=== PATIENT | male | born 1975 | race Caucasian/White ===

== ENCOUNTER 2016-08-23 13:43 | Emergency (ER) | payer MEDICAID ==
[~2016-08-23] VITALS: Ht 170.2 cm; Wt 89.0 kg
[2016-08-23 13:48] VITALS: Ht 170.2 cm; Wt 89.0 kg
[2016-08-23] MEDS ORDERED: ONDANSETRON (ODT) 4 MG TAB ODT STA (15:03)
--- NOTE | 2016-08-23 15:19 | ERD ---
ER Documentation Chief Complaint Date/Time DATE: 08/23/16 TIME: 15:13 Chief Complaint IVEY X 6 DAYS HPI Patient is a 40-year-old male with a past medical history of bipolar who presents to the ED with multiple complaints. Patient states that for the last 3 weeks he has had headache, gradual onset and the last week he has had blurry vision, neck pain and difficulty hearing. States that he feels a lump behind his head. Denies fever or chills. Denies vomiting or diarrhea or abdominal pain. Denies chest pain, cough, shortness of breath. Denies leg pain or leg swelling. States that he went to his primary care provider last week and was given Flexeril and ibuprofen which has helped with his symptoms. He also states that he has difficulty chewing however he does not have difficulty breathing or swallowing. Denies rashes or seizures. Patient also smokes marijuana daily ROS All systems reviewed and are negative except as per history of present illness. Medications Home Meds Active Scripts Hydrocodone/Acetaminophen ([place] 5-325 Tablet) 1 Each Tablet, 1 TAB PO Q6H Y for PAIN, #5 TAB Prov:ABBY SHELL PA-C 08/23/16 Allergies Allergies: Coded Allergies: haloperidol (Verified Allergy, Severe, ANAPHALACTIC, 08/26/16) Fish Containing Products (Verified Allergy, Unknown, HIVES, 08/26/16) Penicillins (Verified Allergy, Unknown, 08/25/16) Sulfa (Sulfonamide Antibiotics) (Verified Allergy, Unknown, 08/25/16) shellfish derived (Verified Allergy, Unknown, HIVES, 08/26/16) PMhx/Soc History of Surgery: No Anesthesia Reaction: No Hx Neurological Disorder: No Hx Respiratory Disorders: No Hx Cardiac Disorders: No Hx Psychiatric Problems: Yes (BIPOLAR) Hx Miscellaneous Medical Probl: No Hx Alcohol Use: Yes (SOCIALLY) Hx Substance Use: Yes (DAILY) Hx Tobacco Use: Yes Smoking Status: Former smoker FmHx Family History: No coronary disease, No diabetes, No other Physical Exam Vitals Physical Exam GENERAL: Well-developed, well-nourished male. Appears in no acute distress. HEAD: Normocephalic, atraumatic. EYES: Pupils are equally reactive bilaterally. EOMs grossly intact. No conjunctival erythema. ENT: Moist mucous membranes. No uvula deviation. No kissing tonsils. No exudates. 10 cm mass behind neck, soft, mobile with no signs of infection. NECK: Supple. No lymphadenopathy or thyromegaly. No meningismus. negative kernig. negative brudinski. LUNG: Clear to auscultation bilaterally. No rhonchi, wheezing, rales or coarse breath sounds. HEART: Regular rate and rhythm. No murmurs, rubs or gallops. Extremities: Equal pulses bilaterally. No peripheral clubbing, cyanosis or edema. No unilateral leg swelling. NEUROLOGIC: Alert and oriented. Moving all four extremities. 5/5 strength in all extremities. Normal speech. Steady gait. SKIN: Normal color. Warm and dry. No rashes or lesions. Capillary refill < 2 seconds Results 24 hrs Current Medications Medications (Trade) Dose Ordered Sig/Carmelita Route PRN Reason Start Time Stop Time Status Last Admin Dose Admin Acetaminophen/ Hydrocodone Bitart ([place] (5/325)) 1 tab ONCE ONCE PO 08/23/16 15:30 08/23/16 15:31 DC 08/23/16 15:14 Ondansetron HCl (Zofran Odt) 4 mg ONCE STAT ODT 08/23/16 15:03 08/23/16 15:05 DC 08/23/16 15:13 Acetaminophen/ Hydrocodone Bitart ([place] (5/325)) 1 tab ONCE ONCE PO 08/23/16 18:00 08/23/16 18:01 DC Procedures/MDM ER COURSE: I kept the patient and/or family informed of laboratory and diagnostic imaging results throughout the emergency room course. IMAGING STUDIES [place] [id number] Radiology Main Line: [phone] DIAGNOSTIC IMAGING REPORT Patient: TUSHAR RUIZ : 1975 Age: 40 Sex: M MR #: [id number] DOS: 08/23/16 1503 Ordering MD: ABBY SHELL PA-C Location: [facility] Room/Bed: PROCEDURE: CT Brain without contrast. CLINICAL INDICATION: Headache. Palpable lesion posteriorly. TECHNIQUE: A CT of the brain without contrast was performed utilizing axial sections from the skull base through the vertex. The patient was scanned without intravenous contrast enhancement. Sagittal and coronal reformatted images were obtained using the data from the axial images. Total exam DLP is 720.23 mGy-cm. CTDIvol is 45.01 mGy. One or more of the following dose reduction techniques were used: Automated exposure control, adjustment of the mA and/or kV according to patient size, use of iterative reconstruction technique. COMPARISON: None available FINDINGS: There is normal alfaro-white matter differentiation. The ventricles and cisterns are normal. There is no intracranial hemorrhage or space-occupying lesion. There is no skull fracture or lytic lesion. IMPRESSION: 1. Normal noncontrast CT scan of the brain. RPTAT: QQ .Allan Dash MD, MD Date Time Electronically viewed and signed by .Allan Dash MD, MD on 08/23/2016 17:59 .R/ CC: ABBY SHELL [place] MEDICAL DECISION MAKING: This is a 40-year-old male who presents with headache 3 weeks. Vital signs were reviewed. Patient is afebrile. Patient is not hypoxic. Patient is nontoxic or ill-appearing. I consulted my supervising physician Dr. hummel who agrees with my medical decision making. CT scan was ordered which was unremarkable. Patient has headache of unknown etiology. 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 Patient is neurovascularly intact in the examination room. Patient was given [place] here in the ED. Tolerated well and stated improvement in his symptoms. Low suspicion for intracranial hemorrhage, meningitis, intracranial mass, concussion, temporal arteritis, stroke, elevated intracranial pressure, seizure. DISCHARGE: At this time, patient is stable for discharge and outpatient management with no new complaints during the ER course. Patient was sent home with [place] and a copy of imaging report and to follow-up with family care provider.. Patient will be discharged home with instructions to recheck for new or worsening symptoms such as fever, nausea, weakness, LOC and to follow up with primary care in the next 1-2 days. Patient was advised to return to the ER for any new or worsening symptoms. Plan was discussed and patient and/or family understands and agrees. Home instructions were given. Departure Diagnosis: Primary Impression: Headache Headache type: unspecified Headache chronicity pattern: acute headache Intractability: not intractable Qualified Code: R51 - Acute nonintractable headache, unspecified headache type Condition: Stable ABBY SHELL PA-C Aug 23, 2016 15:19
[2016-08-23] MEDS ORDERED: HYDROCODONE/APAP (5/325) TAB PO ONE ×2 (15:30→18:00)
--- NOTE | 2016-08-23 17:59 | RADRPT ---
PROCEDURE: CT Brain without contrast. CLINICAL INDICATION: Headache. Palpable lesion posteriorly. TECHNIQUE: A CT of the brain without contrast was performed utilizing axial sections from the skul l base through the vertex. The patient was scanned without intravenous contrast enhancement. Sagitta l and coronal reformatted images were obtained using the data from the axial images. Total exam DLP is 720.23 mGy-cm. CTDIvol is 45.01 mGy. One or more of the following dose reduction techniques we re used: Automated exposure control, adjustment of the mA and/or kV according to patient size, use o f iterative reconstruction technique. COMPARISON: None available FINDINGS: There is normal alfaro-white matter differentiation. The ventricles and cisterns are normal. There is no intracranial hemorrhage or space-occupying lesion. There is no skull fracture or lytic lesion. IMPRESSION: 1. Normal noncontrast CT scan of the brain. RPTAT: QQ .Allan Dash MD, MD Date Time Electronically viewed and signed by .Allan Dash MD, on 08/23/2016 17:59 .R/
[2016-08-23] MEDS ORDERED: HYDR-906 PO (18:14)
== END 2016-08-23 18:37 | disposition home or self-care (01) ==
LOC: FTE 13:43
DX: R51 Headache (principal); Z87.891 Personal history of nicotine dependence
CPT/HCPCS: 70450; Z7502; Z7610

== ENCOUNTER 2016-08-25 21:24 | Inpatient (IN) | payer MEDICAID ==
[~2016-08-25] VITALS: Ht 170.2 cm; Wt 76.0 kg
[~2016-08-25 21:24] MED LIST: HYDR-906 PO
[2016-08-25 21:29] VITALS: Ht 170.2 cm; Wt 76.0 kg
[2016-08-25] MEDS ORDERED: SOD CHLORIDE 0.9% 1,000 ML IV STA (22:23)
[2016-08-25] MEDS ORDERED: morphine 2 MG INJ IV STA (22:23)
[2016-08-25] MEDS ORDERED: ONDANSETRON 4 MG INJ IV STA (22:59)
[2016-08-25] MEDS ORDERED: CLINDAMYCIN 900 MG/D5W (PMX) 50 ML IVPB SCH (23:00)
[2016-08-25 23:12] LABS: ADD SCAN DIFF NO
[2016-08-25 23:18] LABS: BASOPHILS % 0.2 % (0.0-2.0); HEMATOCRIT 43.9 % (42.0-52.0); LYMPHOCYTES # 0.7 10^3/ul (0.8-2.9); LYMPHOCYTES % 3.3 % (15.0-51.0); MEAN CORPUSCULAR HEMOGLOBIN 29.6 pg (29.0-33.0); MEAN CORPUSCULAR HGB CONC 34.2 g/dl (32.0-37.0); MEAN CORPUSCULAR VOLUME 86.6 fl (82.0-101.0); MEAN PLATELET VOLUME 10.6 fl (7.4-10.4); MONOCYTE # 1.3 10^3/ul (0.3-0.9); MONOCYTES % 6.4 % (0.0-11.0); NEUTROPHIL # 18.5 10^3/ul (1.6-7.5); NEUTROPHILS % 89.1 % (39.0-77.0); PLATELET COUNT 297 10^3/UL (140-415); RED BLOOD COUNT 5.07 10^6/ul (4.70-6.10); RED CELL DISTRIBUTION WIDTH 14.2 % (11.5-14.5); WHITE BLOOD COUNT 20.8 10^3/ul (4.8-10.8)
[2016-08-25 23:34] LABS: CALCIUM 9.6 mg/dl (8.4-10.2); CREATININE 0.98 mg/dl (0.61-1.24); POTASSIUM 3.8 mmol/L (3.5-5.1)
[2016-08-25] MEDS ORDERED: SOD CHLORIDE 0.9% 100 ML ONE (23:57)
[2016-08-25] MEDS ORDERED: IOHEXOL 300MG/ML 150 ML BTL ONE (23:57)
--- NOTE | 2016-08-26 01:05 | RADRPT ---
PROCEDURE: CT soft tissue neck with contrast CLINICAL INDICATION: Left orbital swelling radiating to forehead, face and neck TECHNIQUE: A CT of the neck was performed utilizing axial sections from the from the thoracic inle t through the skull base with contrast. Coronal and sagittal images were also reformatted. 90 cc of Omnipaque-300 intravenous contrast was administered. The exam CTDI vol = 8.59 mGy and DLP = 254.66 m Gy-cm. COMPARISON: None available FINDINGS: Visualized intracranial structures and skull base: Mild mucosal thickening of the sphenoid sinuses i s present bilaterally. The remaining paranasal sinuses and mastoid air cells are clear the included orbits demonstrate left preseptal soft tissue swelling and edema along the left nasolacrimal ridge. There is no evidence of retrobulbar are inflammation or abscess. Mild to moderate bilateral symme tric proptosis is noted Nasopharynx, oropharynx and tongue base: The pharyngeal tonsils are within limits of normal for size . The parapharyngeal fat planes are symmetric and unremarkable. No nasopharyngeal mass is present. The tongue base is unremarkable. Dental amalgam artifact limits fine evaluation of these regions. Parotid and paper bag machine operator spaces: The glands are normal in size and homogeneous in attenuation without mass or inflammation. The muscles of mastication and temporomandibular joints are normal bilaterall y. Carotid spaces: The lymph nodes are normal in size bilaterally. No mass lesion or inflammation is de monstrated. A linear hypodense filling defect within the proximal right internal jugular vein from the jugular foramen to the level of the C2 vertebral body cannot exclude thrombus. The left interna l jugular vein is smaller than the right. The carotid vasculature is unremarkable. Submandibular and submental spaces: The glands and lymph nodes are normal. There is no evidence of calcification. The sublingual space is unremarkable. Posterior triangles: Reactive type lymph nodes in the right greater than left spinal accessory chain are present without meeting the criteria for adenopathy. Larynx and infraglottic airway: The epiglottis, aryepiglottic folds, vocal cords and piriform sinus es are unremarkable. No intrinsic tracheal abnormality is demonstrated. Visceral space: The thyroid gland is normal in size without evidence of nodules. The cervical esoph robb is unremarkable. Supraclavicular fossae: No evidence of adenopathy or mass lesion. Visualized thorax: No evidence of pulmonary infiltrates or superior mediastinal abnormality. Cervical spine: No evidence of fracture, lytic or blastic lesion. The reversal of the normal cervic al lordosis may be from muscle spasm. RPTAT:HJJR IMPRESSION: 1. Left preseptal and periorbital soft tissue swelling extending along the left nasolacrimal ridge is consistent with cellulitis without evidence of abscess and no extension into the intraconal space . Clinical follow-up is recommended. 2. Linear hypodense filling defect within the proximal right internal jugular vein from the skull b ase to the level of the C2 vertebral body cannot exclude thrombus versus atypical flow related artif act. A followup right upper extremity venous ultrasound with attention to this area is recommended. Results are discussed by telephone with Dr. Rivera at 01:04 3. Incidental chronic-appearing sphenoid sinus disease. Physician Swati Date Time Electronically viewed and signed by Physician Swati on 08/26/2016 01:05 /
[2016-08-26] MEDS ORDERED: DICLOFENAC SODIUM 37.5 MG/ML VIAL IV STA (01:34)
[2016-08-26] MEDS ORDERED: ONDANSETRON 4 MG INJ IV STA (01:34)
--- NOTE | 2016-08-26 02:51 | RADRPT ---
PROCEDURE: ULTRASOUND RIGHT UPPER EXTREMITY VENOUS CLINICAL INDICATION: 40-year-old male with neck pain and abnormal CT scan questioning and a right internal jugular thrombus. TECHNIQUE: Multiple sonographic images of the right upper extremity deep venous system was obtaine d utilizing grayscale, color-flow, compressive sonography and doppler imaging with augmentation. Th e images were reviewed on a PACS workstation. COMPARISON: None. FINDINGS: There is normal compressibility and flow within the right internal jugular, subclavian, axillary, ce phalic, brachial, basilic, radial and ulnar veins. IMPRESSION: No sonographic evidence for right upper extremity deep venous thrombosis. .Yordan Mcintosh MD, MD Date Time Electronically viewed and signed by .Yordan Mcintosh MD, MD on 08/26/2016 02:51 .Elizabeth/
[2016-08-26] MEDS ORDERED: ONDANSETRON 4 MG INJ IV PRN (03:30)
[2016-08-26] MEDS ORDERED: ACETAMINOPHEN 325 MG TAB PO PRN (03:30)
[2016-08-26 04:00] VITALS: BP 127/81; PULSE 85; RESP 17
--- NOTE | 2016-08-26 05:26 | ERA ---
ER Documentation Chief Complaint Date/Time DATE: 08/26/16 TIME: 05:21 Chief Complaint left eye swelling since this morning HPI 40-year-old male presents with pain and redness to the left side of his face back of his neck going around to his eye. He was seen in the ER 2 days ago for a bump on the back of his head received a head CT and was discharged. States that since then the redness in the back has spread. He has no dental pain. He does have ear pain. He does feel increasingly generalized weak and tired. He has no visual symptoms but does feel the pain surrounding his eye he has no pain on eye movement ROS All systems reviewed and are negative except as per history of present illness. Medications Home Meds Active Scripts Hydrocodone/Acetaminophen ([place] 5-325 Tablet) 1 Each Tablet, 1 TAB PO Q6H Y for PAIN, #5 TAB Prov:ABBY SHELL PA-C 08/23/16 Allergies Allergies: Coded Allergies: haloperidol (Verified Allergy, Severe, ANAPHALACTIC, 08/26/16) Fish Containing Products (Verified Allergy, Unknown, HIVES, 08/26/16) Penicillins (Verified Allergy, Unknown, 08/25/16) Sulfa (Sulfonamide Antibiotics) (Verified Allergy, Unknown, 08/25/16) shellfish derived (Verified Allergy, Unknown, HIVES, 08/26/16) PMhx/Soc History of Surgery: No Anesthesia Reaction: No Hx Neurological Disorder: No Hx Respiratory Disorders: No Hx Cardiac Disorders: No Hx Psychiatric Problems: Yes (BIPOLAR) Hx Miscellaneous Medical Probl: No Hx Alcohol Use: Yes (SOCIALLY) Hx Substance Use: No Hx Tobacco Use: Yes Smoking Status: Current every day smoker Physical Exam Vitals Vital Signs Date Time Temp Pulse Resp B/P Pulse Ox O2 Delivery O2 Flow Rate FiO2 08/25/16 21:29 99.4 90 20 133/91 97 Physical Exam Const: [] Head: Atraumatic Eyes: Normal Conjunctiva ENT: Normal External Ears, Nose and Mouth. Neck: Full range of motion..~ No meningismus. Resp: Clear to auscultation bilaterally Cardio: Regular rate and rhythm, no murmurs Abd: Soft, non tender, non distended. Normal bowel sounds Skin: No petechiae or rashes Back: No midline or flank tenderness Ext: No cyanosis, or edema Neur: Awake and alert Psych: Normal Mood and Affect Result Diagram: 08/25/16225408/25/162254 Results 24 hrs Laboratory Tests Test 08/25/16 22:55 White Blood Count 20.810^3/ul Red Blood Count 5.0710^6/ul Hemoglobin 15.0g/dl Hematocrit 43.9% Mean Corpuscular Volume 86.6fl Mean Corpuscular Hemoglobin 29.6pg Mean Corpuscular Hemoglobin Concent 34.2g/dl Red Cell Distribution Width 14.2% Platelet Count 43693^3/UL Mean Platelet Volume 10.6fl Neutrophils % 89.1% Lymphocytes % 3.3% Monocytes % 6.4% Eosinophils % 0.0% Basophils % 0.2% Nucleated Red Blood Cells % 0.0/100WBC Neutrophils # 18.510^3/ul Lymphocytes # 0.710^3/ul Monocytes # 1.310^3/ul Eosinophils # 0.010^3/ul Basophils # 0.010^3/ul Nucleated Red Blood Cells # 0.010^3/ul Sodium Level 129mmol/L Potassium Level 3.8mmol/L Chloride Level 87mmol/L Carbon Dioxide Level 28mmol/L Anion Gap 18 Blood Urea Nitrogen 25mg/dl Creatinine 0.98mg/dl Glucose Level 138mg/dl Calcium Level 9.6mg/dl Current Medications Medications (Trade) Dose Ordered Sig/Carmelita Route PRN Reason Start Time Stop Time Status Last Admin Dose Admin Sodium Chloride (NS) 1,000 ml @ 1,000 mls/hr Q1H STAT IV 08/25/16 22:23 08/25/16 23:22 DC 08/25/16 22:47 Morphine Sulfate 2 mg 2 mg ONCE STAT IV 08/25/16 22:23 08/25/16 22:28 DC 08/25/16 22:47 Clindamycin HCl/ Dextrose (Cleocin 900 Mg/ D5W (Pmx)) 50 ml @ 50 mls/hr ONCE IVPB 08/25/16 23:00 08/25/16 23:59 DC 08/25/16 23:07 Ondansetron HCl (Zofran Inj) 4 mg ONCE STAT IV 08/25/16 22:59 08/25/16 23:00 DC 08/25/16 23:04 IV Flush 10 ml 10 ml STK-MED ONCE .ROUTE 08/25/16 23:57 08/25/16 23:58 DC 08/26/16 00:12 Sodium Chloride (NS) 100 ml @ ud STK-MED ONCE .ROUTE 08/25/16 23:57 08/25/16 23:58 DC 08/26/16 00:12 Iohexol (Omnipaque 300mg/ ml) 150 ml STK-MED ONCE .ROUTE 08/25/16 23:57 08/25/16 23:58 DC 08/26/16 00:12 Ondansetron HCl (Zofran Inj) 4 mg ONCE STAT IV 08/26/16 01:34 08/26/16 01:36 DC 08/26/16 02:01 Diclofenac Sodium (Dyloject) 37.5 mg ONCE STAT IV 08/26/16 01:34 08/26/16 01:36 DC 08/26/16 02:01 Procedures/MDM Expanding facial cellulitis with new periorbital cellulitis. No signs of sepsis and vital signs. Patient does have leukocytosis and hyponatremia. Believe he needs to be admitted for IV antibiotics to prevent progression to orbital cellulitis. Currently has no pain on extraocular muscle movement. Does have a generalized weakness with hyponatremia and hyperchloremia. Hydrated him with normal saline and gave him clindamycin is allergic to penicillins. Also gave him morphine and Toradol for the pain. Radiologist initially called and stated they might see of venous lesion in the right IJ. They recommended follow-up with right upper extremity ultrasound which does not show any venous lesions. Patient is being admitted to the medical surgical floor for IV antibiotic treatment further management likely infectious disease consult. Dr. Antoine is admitting CT face and neck interpretation: Periorbital cellulitis without any orbital cellulitis. No foreign bodies Right upper extremity ultrasound: No lesions or DVT. Departure Diagnosis: Primary Impression: Periorbital cellulitis of left eye Additional Impressions: Facial cellulitis Hyponatremia Leukocytosis Condition: Stable CLAUDIA DAS DO Aug 26, 2016 05:25
[2016-08-26] MEDS ORDERED: VANCOMYCIN IV PER PHARMACY XX SCH (07:30)
[2016-08-26] MEDS ORDERED: PIPER-TAZO 3.375 GM IV (PMX) 100 ML IVPB SCH (07:30)
[2016-08-26] MEDS ORDERED: DOCUSATE SODIUM 100 MG CAP PO PRN (07:30)
[2016-08-26] MEDS ORDERED: NACL 0.9% 3 ML SYG IV SCH (07:30)
--- NOTE | 2016-08-26 07:58 | HP ---
DATE OF ADMISSION: 08/26/2016 CHIEF COMPLAINT: Left eye pain. HISTORY OF PRESENT ILLNESS: The patient is a 40-year-old male with a history of bipolar disorder. The patient states that he has had a tension headache for the past several months. He then woke up yesterday morning with left eye swelling. This has never happened to the patient in the past. The patient was seen in the ED 2 days prior for a bump on his back of his head. He received a head CT a nd was discharged. The patient reports having some ear pain in both sides. He does feel increased weakness and fatigue. He does state that his dizziness is somewhat diminished at this time because of the left eye swelling. He does state that he has some pain surrounding the eye but has no pain w ith eye movement. PAST MEDICAL HISTORY: Bipolar disorder, tension headache for the past 2 months. PAST SURGICAL HISTORY: Denies. HOME MEDICATIONS: [place]. ALLERGIES: ALLOPURINOL, FISH CONTAINING PRODUCTS, PENICILLIN, SULFA, SHELLFISH. FAMILY HISTORY: Noncontributory. SOCIAL HISTORY: Denies any alcohol abuse, substance abuse. He is a smoker. REVIEW OF SYSTEMS: A 12-point review of systems negative except for that discussed in HPI. PHYSICAL EXAMINATION: VITAL SIGNS: Temperature is 98.1, pulse 85, respiratory rate 17, BP is 127/81, saturation 95% on ro om air. GENERAL: Mild distress, alert and oriented. HEENT: Normocephalic, atraumatic. Pupils equal, round, reactive to light. NECK: Left eye swelling noted. No erythema is noted around the eye. CHEST: Clear to auscultation. CARDIOVASCULAR: Regular rate and rhythm. ABDOMEN: Nondistended, nontender, soft. EXTREMITIES: No clubbing, cyanosis, or edema. LABORATORY TESTS: White count 20.8, hemoglobin is 15.0, platelets are 297. Chemistry within normal limits except for sodium 129, potassium is 2.8, chloride 87, BUN is 25. DIAGNOSTICS: Soft tissue neck CT shows left preseptal and periorbital soft tissue swelling extendin g along the left nasolacrimal ridge consistent with cellulitis without evidence of abscess and no ex tension into the intraconal space, a linear hyperdense filling defect within the proximal right inte rnal jugular vein from the skull base to the level of the C2 vertebral body, cannot exclude thrombos is versus atypical flow related artifact. A followup right upper extremity venous ultrasound with a ttention to this area is recommended. Ultrasound of the right upper extremity venous shows no evide nce of right upper extremity deep venous thrombosis. ASSESSMENT AND PLAN: 1. Sepsis secondary to left periorbital cellulitis, treated with IV antibiotics at this time. The patient has no pain with movement of his eyes and no urgent need for ophthalmology. We will treat w ith IV antibiotics. If the patient's condition does not improve, ophthalmology consultation should be considered. Treated with broad spectrum antibiotics at this time. 2. Bilateral ear pain, unlikely to be otitis media as the pain is bilateral, but we will treat with broad spectrum antibiotics. 3. History of bipolar disorder. The patient has no reported psychiatric medications. 4. History of tension headache with pain control. 5. Hyponatremia. We will treat with normal saline. 6. Prophylaxis with ambulation. Dictated By: TRINH CORREA MD BS/JACK Conf#: [id number] DID#: [id number]
[2016-08-26 08:17] VITALS: BP 135/78; RESP 16
[2016-08-26 08:25] VITALS: BP 143/80; RESP 18
[2016-08-26] MEDS: ONDANSETRON 4 MG INJ IV PRN ×3 (08:26→22:57)
[2016-08-26] MEDS: morphine 2 MG INJ IV PRN ×4 (08:26→22:57)
[2016-08-26] MEDS ORDERED: VANCOMYCIN 1.5 GM in SOD CHLORIDE 0.9% 250 ML IVPB SCH (09:00)
[2016-08-26] MEDS: HYDROCODONE/APAP (5/325) TAB PO PRN ×3 (09:14→20:52)
[2016-08-26] MEDS: SOD CHLORIDE 0.9% 1,000 ML IV SCH ×2 (09:18→15:17)
[2016-08-26] MEDS: ACETAMINOPHEN 325 MG TAB PO PRN (14:32)
[2016-08-26] MEDS: MEROPENEM 1 GM/100 ML (PMX) 100 ML IVPB SCH ×2 (14:50→22:50)
[2016-08-26] MEDS: METHYLPREDNISOLONE 125 MG INJ IV SCH ×2 (17:05→23:36)
[2016-08-26] MEDS: VANCOMYCIN 1 GM in NS 250 ML IVPB SCH (18:24)
[2016-08-26 19:39] VITALS: BP 124/74; RESP 18
[2016-08-26] MEDS: CIPROFLOXACIN 0.3% 2.5 ML OPH BOTH EYES SCH (20:47)
[2016-08-27] MEDS: VANCOMYCIN 1 GM in NS 250 ML IVPB SCH ×3 (02:26→17:42)
[2016-08-27 05:22] LABS: ADD SCAN DIFF NO
[2016-08-27 05:31] LABS: BASOPHILS % 0.1 % (0.0-2.0); HEMATOCRIT 39.2 % (42.0-52.0); LYMPHOCYTES % 5.4 % (15.0-51.0); MEAN CORPUSCULAR HEMOGLOBIN 29.2 pg (29.0-33.0); MEAN CORPUSCULAR HGB CONC 33.2 g/dl (32.0-37.0); MEAN CORPUSCULAR VOLUME 88.1 fl (82.0-101.0); MEAN PLATELET VOLUME 11.6 fl (7.4-10.4); MONOCYTE # 0.5 10^3/ul (0.3-0.9); MONOCYTES % 2.9 % (0.0-11.0); NEUTROPHIL # 16.8 10^3/ul (1.6-7.5); PLATELET COUNT 257 10^3/UL (140-415); RED BLOOD COUNT 4.45 10^6/ul (4.70-6.10); WHITE BLOOD COUNT 18.6 10^3/ul (4.8-10.8)
[2016-08-27 05:34] LABS: NEUTROPHILS % 90.2 % (39.0-77.0)
[2016-08-27] MEDS: HYDROCODONE/APAP (5/325) TAB PO PRN ×4 (05:36→21:24)
[2016-08-27] MEDS: METHYLPREDNISOLONE 125 MG INJ IV SCH ×4 (05:37→23:04)
[2016-08-27] MEDS: MEROPENEM 1 GM/100 ML (PMX) 100 ML IVPB SCH ×3 (05:37→21:24)
[2016-08-27 06:02] LABS: CALCIUM 8.6 mg/dl (8.4-10.2); CHOL/HDL RATIO 8.5 RATIO; CREATININE 0.82 mg/dl (0.61-1.24); MAGNESIUM 2.6 mg/dl (1.7-2.5); PHOSPHORUS 3.2 mg/dl (2.5-4.9); POTASSIUM 5.2 mmol/L (3.5-5.1)
[2016-08-27 06:17] LABS: T3 UPTAKE 41.8 % (23.5-40.5)
[2016-08-27] MEDS: ONDANSETRON 4 MG INJ IV PRN ×2 (07:23→23:36)
[2016-08-27] MEDS: morphine 2 MG INJ IV PRN ×2 (07:23→23:36)
[2016-08-27 07:36] VITALS: BP 113/61; RESP 20
[2016-08-27] MEDS: CIPROFLOXACIN 0.3% 2.5 ML OPH BOTH EYES SCH ×2 (09:21→20:23)
[2016-08-27] MEDS: ARTIFICIAL TEARS 15 ML OPH BOTH EYES SCH ×4 (11:21→21:24)
[2016-08-27] MEDS ORDERED: NA POLYST SULFON 15 GM/60 ML BTL PO ONE (14:00)
--- NOTE | 2016-08-27 15:36 | RADRPT ---
PROCEDURE: MRI Brain without contrast. CLINICAL INDICATION: Left periorbital soft tissue swelling, TIA. TECHNIQUE: An MRI of the brain was performed utilizing the following sequences: Sagittal and axial T1 weighted, axial T2 weighted, axial diffusion weighted with ADC mapping, coronal GRE, and axial F LAIR. COMPARISON: Brain CT 08/23/2016. FINDINGS: No diffusion weighted abnormalities are seen to suggest the presence of acute ischemia or recent inf arct. No hypointense signal abnormalities are seen on the GRE images to suggest the presence of blo od degradation products. There is no evidence of intracranial hemorrhage, mass effect, or midline s hift. No extra-axial fluid collections are seen. The ventricles and sulci are age-appropriate. A few small foci of T2 and FLAIR hyperintensity are seen in the deep and subcortical white matter, n onspecific in appearance though perhaps reflective of complicated migraines, early microvascular isc hemic disease, sequela from prior traumatic or inflammatory insults. No abnormal intracranial vascular flow void is noted. The visualized paranasal sinuses demonstrate m ild scattered mucosal thickening or pronounced in the sphenoid sinuses. Mild left periorbital soft t issue swelling is noted. Partial opacification of left mastoid air cells are noted. IMPRESSION: 1. No acute intracranial hemorrhage, infarction or mass. 2. A few small foci of white matter signal abnormality, nonspecific in appearance though perhaps re flective of complicated migraines, early microvascular ischemic disease, sequela from prior traumati c or inflammatory insults. 3. Mild left periorbital soft tissue swelling. 4. Partial opacification of left mastoid air cells. RPTAT: JJ .Aline Billings MD, MD Date Time Electronically viewed and signed by .Aline Billings MD, MD on 08/27/2016 15:36 .N/
--- NOTE | 2016-08-27 17:40 | RADRPT ---
PROCEDURE: US carotid arteries. CLINICAL INDICATION: Dizziness. Transient ischemic attack. TECHNIQUE: Multiple sonographic images of the carotid arteries and vertebral arteries were obtaine d utilizing alfaro scale, duplex, and color-flow imaging. The images were reviewed on a PACS workstati on. COMPARISON: No prior studies are available for comparison. FINDINGS: Evaluation of the right carotid bifurcation region reveals mild atherosclerotic disease. Evaluation of the left carotid bifurcation region reveals mild atherosclerotic disease. There is antegrade flow within the vertebral arteries bilaterally. RIGHT CAROTID MEASUREMENTS: Common Carotid [id number] (cm/sec) Internal Carotid Artery 63 (cm/sec) External Carotid Artery 120 (cm/sec) Vertebral Artery 32 (cm/sec) Internal Carotid/Common Carotid0.8 LEFT CAROTID MEASUREMENTS: Common Carotid [id number] (cm/sec) Internal Carotid Artery 78 (cm/sec) External Carotid Artery 121 (cm/sec) Vertebral Artery 30 (cm/sec) Internal Carotid/Common Carotid1.0 Validated velocity measurements with angiographic measurements. Velocity criteria are extrapolated f rom diameter data as defined by the Society of Radiologists in Ultrasound Consensus Conference. Radi ology 2003; 229;340-346. This study does indirectly reference the measurement of the distal ICA annel meter as the denominator for stenosis measurement. IMPRESSION: 1. Less than 50% stenosis bilaterally in the internal carotid arteries. 2. Normal antegrade flow in the vertebral arteries bilaterally. RPTAT: QQ SRU Consensus Conference Criteria for the Diagnosis of Carotid Artery Stenosis* Degree of Stenosis, % ICA PSV, cm/sec Plaque Estimate, % ICA/CCA PSV Ratio Normal <125 None <2.0 <50 <125 <50 <2.0 50 69 125-230 >50 2.0-4.0 >70 but less than near occlusion >230 >50 <4.0 Near occlusion High, low, or undetectable Visible Variable Total occlusion Undetectable Visible, no detectable lumen Not applicable *Cartoid artery stenosis: alfaro-scale and Doppler US diagnosis. Society of Radiologists in Ultrasound Consensus Conference. Radiology 2003; 229: 340-346 .Allan Dash MD, Date Time Electronically viewed and signed by .Allan Dash MD, on 08/27/2016 17:39 .R/
[2016-08-27 18:56] VITALS: BP 136/94; RESP 20
--- NOTE | 2016-08-27 23:27 | CONS ---
DATE OF ADMISSION: 08/26/2016 DATE OF CONSULTATION: 08/27/2016 TYPE OF CONSULTATION: Infectious disease. REASON FOR CONSULTATION: Antibiotic management. HISTORY OF PRESENT ILLNESS: Ellie Pagan is a 40-year-old male with a history of bipolar disorde r who comes in with left thigh pain and is being seen for antibiotic management. His past problems include: 1. Bipolar disorder. 2. Tension headaches for the last 2 months. 3. ALLERGIES TO ALLOPURINOL, FISH CONTAINING PRODUCTS, PENICILLIN, SULFA, AND SHELLFISH. The patient awoke on the with left eye swelling. He was seen in the emergency room for a bump on the back of his head and a CT scan of the brain and head was negative and he was discharged. The patient reports having some ear pain in both sides and some weakness and fatigue. His dizziness is somewhat diminished at this time, but he complains of left eye swelling. On admission, his white c ount was 20.8, hemoglobin 15, hematocrit 43.9, platelet count 97. On the , white count of 18.6. BUN and creatinine is 20/0.82. Triglycerides 325. An MRI of the brain shows no acute intracrania l hemorrhage. There is diffuse small foci of white matter signal abnormality, nonspecific, could be reflective of complicated migraines, early microvascular ischemic disease, mild left periorbital so ft tissue swelling, partial opacification of left mastoid air cells. CT scan of the neck shows left preseptal and periorbital soft tissue swelling extending along the left nasal lacrimal ridge consis tent with cellulitis without evidence of abscess and no extension into the intracoronal space. Clin ical followup is recommended. There is a linear hyperdense filling defect within the proximal right internal jugular vein from the skull base to the level of C2 vertebral body. Cannot exclude thromb us versus atypical flow related to artifact. Incidental chronic appearing sphenoid sinus disease. There is no evidence of right upper extremity deep vein thrombophlebitis. PAST MEDICAL HISTORY: Operations as outlined. FAMILY HISTORY: Noncontributory. SOCIAL HISTORY: He does not drink or abuse drugs. He is a smoker. ALLERGIES: 1. ALLOPURINOL. 2. FISH CONTAINING PRODUCTS. 3. PENICILLIN. 4. SULFA. 5. SHELLFISH. MEDICATIONS: Per chart. REVIEW OF SYSTEMS: As per HPI. PHYSICAL EXAMINATION: GENERAL: The patient is a 40-year-old male who is alert, responsive, in no acute distress. VITAL SIGNS: Stable. He is afebrile. SKIN: Without generalized rash. HEENT: Within normal limits. NECK: Supple. LYMPH NODES: None palpable. CHEST: Decreased breath sounds at the bases. HEART: Without murmur or gallop. ABDOMEN: Soft, nontender without organosplenomegaly or masses. EXTREMITIES: Without cyanosis, clubbing, or edema. RECTAL/GENITAL: Exam is deferred. NEUROLOGIC: No focal neurological abnormalities. He has left eye swelling with erythema around the left eye. IMPRESSION AND PLAN: The patient has sepsis secondary to left periorbital cellulitis. He was start ed on vancomycin, also methylprednisolone, and also meropenem. We may stop the meropenem within 24 hours, continuing just on vancomycin. He also has ciprofloxacin eyedrops. I will dictate my findin gs to the hospitalist. Dictated By: MARIA INES JIMENEZ MD, JD/JACK Conf#: [id number] DID#: [id number] CC: TRINH CORREA MD;*EndCC*
[2016-08-28] MEDS: VANCOMYCIN 1 GM in NS 250 ML IVPB SCH ×2 (02:49→09:57)
[2016-08-28] MEDS: HYDROCODONE/APAP (5/325) TAB PO PRN ×5 (03:10→20:24)
[2016-08-28 05:18] LABS: ADD SCAN DIFF NO
[2016-08-28 05:31] LABS: ABNORMAL IP MESSAGE 1; HEMATOCRIT 36.9 % (42.0-52.0); HEMOGLOBIN 12.3 g/dl (14.0-18.0); MEAN CORPUSCULAR HGB CONC 33.3 g/dl (32.0-37.0); MEAN PLATELET VOLUME 11.9 fl (7.4-10.4); PLATELET COUNT 308 10^3/UL (140-415); RED BLOOD COUNT 4.24 10^6/ul (4.70-6.10); RED CELL DISTRIBUTION WIDTH 15.1 % (11.5-14.5); WHITE BLOOD COUNT 26.6 10^3/ul (4.8-10.8)
[2016-08-28 05:56] LABS: CALCIUM 8.8 mg/dl (8.4-10.2); CREATININE 0.75 mg/dl (0.61-1.24); MAGNESIUM 2.4 mg/dl (1.7-2.5); POTASSIUM 3.6 mmol/L (3.5-5.1)
[2016-08-28] MEDS: MEROPENEM 1 GM/100 ML (PMX) 100 ML IVPB SCH (06:09)
[2016-08-28] MEDS: METHYLPREDNISOLONE 125 MG INJ IV SCH ×3 (06:09→21:20)
[2016-08-28 06:16] LABS: THYROID STIMULATING HORMONE 0.775 MIU/L (0.465-4.680)
[2016-08-28 07:58] LABS: C-REACTIVE PROTEIN 8.2 mg/dl (0.0-0.9)
[2016-08-28] MEDS: CIPROFLOXACIN 0.3% 2.5 ML OPH BOTH EYES SCH ×2 (08:16→20:25)
[2016-08-28] MEDS: ARTIFICIAL TEARS 15 ML OPH BOTH EYES SCH ×4 (08:17→21:20)
[2016-08-28 08:47] VITALS: BP 133/66; RESP 20
[2016-08-28 12:22] LABS: LYMPHOCYTES # 1.6 10^3/ul (0.8-2.9); MONOCYTE # 1.1 10^3/ul (0.3-0.9); MYELOCYTES # 1.1; NEUTROPHIL # 20.5 10^3/ul (1.6-7.5)
--- NOTE | 2016-08-28 12:50 | CONS ---
Date/Time of Note Date/Time of Note DATE: 08/28/16 TIME: 12:43 Assessment/Plan Assessment/Plan Chief Complaint/Hosp Course No acute changes, alert, c/o 95% L hearing loss, no fevers, left facial swelling is better Micro: Bld cx + MRSA Abx: Vanco, Merrem Physical examination: Well developed white man, in no distress + left sided periorbital/ facial swelling Neck: supple Chest: Clear to auscultation Abdomen: Soft, + BT Ext: no edema, no cyanosis Assessment: 1. MRSA bacteremia 2 to #2 2. Left periorbital/facial cellulitis ?mastoiditis 3. Chronic sinus disease 4. Bipolar disorder Plan: Repeat bld cx, dc Merrem and add Rifampin, await for ENT eval. Once bld cx negative will order PICC to complete 2 weeks IV Vanco DW pt Problems: Consultation Date/Type/Reason Admit Date/Time Aug 26, 2016 at 03:14 Initial Consult Date Type of Consultation: ID Exam/Review of Systems Vital Signs Vitals Vital Signs Date Time Temp Pulse Resp B/P Pulse Ox O2 Delivery O2 Flow Rate FiO2 08/28/16 08:47 98.1 70 20 133/66 95 08/26/16 19:50 Nasal Cannula 1.0 Intake and Output 08/27/16 08/27/16 08/28/16 15:00 23:00 07:00 Intake Total 250 ml 2910 ml 1050 ml Balance 250 ml 2910 ml 1050 ml Results Result Diagram: 08/28/16 0415 08/28/16 0415 Results 24 hrs Laboratory Tests Test 08/28/16 04:15 White Blood Count 26.6 #H Red Blood Count 4.24 L Hemoglobin 12.3 L Hematocrit 36.9 L Mean Corpuscular Volume 87.0 Mean Corpuscular Hemoglobin 29.0 Mean Corpuscular Hemoglobin Concent 33.3 Red Cell Distribution Width 15.1 H Platelet Count 308 Mean Platelet Volume 11.9 H Neutrophils % 77.0 Band Neutrophils % 9.0 H Lymphocytes % 6.0 L Monocytes % 4.0 Myelocytes % 4.0 H Neutrophils # 20.5 H Lymphocytes # 1.6 Monocytes # 1.1 H Myelocytes # 1.1 Erythrocyte Sedimentation Rate 70 H Sodium Level 139 Potassium Level 3.6 Chloride Level 103 Carbon Dioxide Level 25 Anion Gap 15 Blood Urea Nitrogen 22 H Creatinine 0.75 Glucose Level 165 Calcium Level 8.8 Magnesium Level 2.4 C-Reactive Protein 8.2 H Thyroid Stimulating Hormone (TSH) 0.775 Medications Medications Current Medications Ondansetron HCl (Zofran Inj) 4 mg Q6H PRN IV NAUSEA AND/OR VOMITING Last administered on 08/27/16 23:36; Admin Dose 4 MG; Start 08/26/16 at 07:30 Acetaminophen (Tylenol Tab) 650 mg Q6H PRN PO PAIN LEVEL 1-3 OR FEVER Last administered on 08/26/16 14:32; Admin Dose 650 MG; Start 08/26/16 at 07:30 Morphine Sulfate (morphine) 2 mg Q4H PRN IV SEVERE PAIN LEVEL 7-10 Last administered on 08/27/16 23:36; Admin Dose 2 MG; Start 08/26/16 at 07:30 Docusate Sodium (Colace) 100 mg Q12 PRN PO CONSTIPATION; Start 08/26/16 at 07: 30 Zolpidem Tartrate 5 mg 5 mg QHS PRN PO SLEEP; Start 08/26/16 at 07:30 Vancomycin HCl 250 ml @ 125 mls/hr Q8H IVPB Last administered on 08/28/16 09: 57; Admin Dose 125 MLS/HR; Start 08/26/16 at 18:00 Meropenem (Merrem 1 Gm/100 ml (Pmx)) 100 ml @ 200 mls/hr Q8 IVPB Last administered on 08/28/16 06:09; Admin Dose 200 MLS/HR; Start 08/26/16 at 14:00 Ciprofloxacin HCl (Ciloxan 0.3% Oph) 2 drop BID BOTH EYES Last administered on 08/28/16 08:16; Admin Dose 2 DROP; Start 08/26/16 at 21:00 Eye Lubricant (Artificial Tears Oph) 2 drop QID BOTH EYES Last administered on 08/28/16 12:36; Admin Dose 2 DROP; Start 08/27/16 at 10:30 Acetaminophen/ Hydrocodone Bitart ([place] (5/325)) 1 tab Q4H PRN PO MODERATE PAIN LEVEL 4-6 Last administered on 08/28/16 12:36; Admin Dose 1 TAB; Start at 12:20 Methylprednisolone Sodium Succinate (Solu-Medrol) 80 mg Q8 IV Last administered on 08/28/16t 06:09; Admin Dose 80 MG; Start 08/27/16 at 14:00 LUX LUONG NP Aug 28, 2016 12:50
--- NOTE | 2016-08-28 13:23 | PN ---
Date/Time of Note Date/Time of Note DATE: 08/28/16 TIME: 13:19 Assessment/Plan VTE Prophylaxis VTE Prophylaxis Intervention: SCD's Lines/Catheters IV C[facility]ter Type (from [facility] Peripheral IV Urinary Cath still in place: No Assessment/Plan Chief Complaint/Hosp Course ASSESSMENT AND PLAN: 1. Sepsis secondary to left periorbital cellulitis, treated with IV antibiotics at this time. Positive bacteremia/MRSA The patient has no pain with movement of his eyes and no urgent need for ophthalmology. Continue IV antibiotics. If the patient's condition does not improve, ophthalmology consultation should be considered. Continue vancomycin and discontinue imipenem 2. Bilateral ear pain, unlikely to be otitis media as the pain is bilateral, ENT has been consulted 3. History of bipolar disorder. The patient has no reported psychiatric medications. 4. History of tension headache with pain control. 5. Hyponatremia. Resolved 6. Prophylaxis with ambulation. Problems: Subjective 24 Hr Interval Summary Free Text/Dictation Patient denies any headache or dizziness Denies of any chest pain Improvement in hearing in the left ear Exam/Review of Systems Vital Signs Vitals Vital Signs Date Time Temp Pulse Resp B/P Pulse Ox O2 Delivery O2 Flow Rate FiO2 08/28/16 08:47 98.1 70 20 133/66 95 08/26/16 19:50 Nasal Cannula 1.0 Intake and Output 08/27/16 08/27/16 08/28/16 15:00 23:00 07:00 Intake Total 250 ml 2910 ml 1050 ml Balance 250 ml 2910 ml 1050 ml Exam General: The patient is well-developed, Not in acute distress. HEENT: Atraumatic, normocephalic. The pupils are equal and round . Left eye orbit swelling has improved significantly Neck: Supple with full range of motion. Chest: Normal expansion of the thorax during inspiration Lungs: Clear to auscultation bilaterally Heart: Normal S1-S2, Regular rhythm and rate. Abdomen: Soft , nontender, nondistended , bowel sounds are present. Extremities: Normal to inspection, no edema no cyanosis Neurologic: Normal mental status,The patient is awake, alert and oriented . Results Result Diagram: 08/28/16 0415 08/28/16 0415 Results 24 hrs Laboratory Tests Test 08/28/16 04:15 White Blood Count 26.6 #H Red Blood Count 4.24 L Hemoglobin 12.3 L Hematocrit 36.9 L Mean Corpuscular Volume 87.0 Mean Corpuscular Hemoglobin 29.0 Mean Corpuscular Hemoglobin Concent 33.3 Red Cell Distribution Width 15.1 H Platelet Count 308 Mean Platelet Volume 11.9 H Neutrophils % 77.0 Band Neutrophils % 9.0 H Lymphocytes % 6.0 L Monocytes % 4.0 Myelocytes % 4.0 H Neutrophils # 20.5 H Lymphocytes # 1.6 Monocytes # 1.1 H Myelocytes # 1.1 Erythrocyte Sedimentation Rate 70 H Sodium Level 139 Potassium Level 3.6 Chloride Level 103 Carbon Dioxide Level 25 Anion Gap 15 Blood Urea Nitrogen 22 H Creatinine 0.75 Glucose Level 165 Calcium Level 8.8 Magnesium Level 2.4 C-Reactive Protein 8.2 H Thyroid Stimulating Hormone (TSH) 0.775 Medications Medications Current Medications Ondansetron HCl (Zofran Inj) 4 mg Q6H PRN IV NAUSEA AND/OR VOMITING Last administered on 08/27/16 23:36; Admin Dose 4 MG; Start 08/26/16 at 07:30 Acetaminophen (Tylenol Tab) 650 mg Q6H PRN PO PAIN LEVEL 1-3 OR FEVER Last administered on 08/26/16 14:32; Admin Dose 650 MG; Start 08/26/16 at 07:30 Morphine Sulfate (morphine) 2 mg Q4H PRN IV SEVERE PAIN LEVEL 7-10 Last administered on 08/27/16 23:36; Admin Dose 2 MG; Start 08/26/16 at 07:30 Docusate Sodium (Colace) 100 mg Q12 PRN PO CONSTIPATION; Start 08/26/16 at 07: 30 Zolpidem Tartrate 5 mg 5 mg QHS PRN PO SLEEP; Start 08/26/16 at 07:30 Vancomycin HCl (Vancocin) 250 ml @ 125 mls/hr Q8H IVPB Last administered on 09:57; Admin Dose 125 MLS/HR; Start 08/26/16 at 18:00 Ciprofloxacin HCl (Ciloxan 0.3% Oph) 2 drop BID BOTH EYES Last administered on 08/28/16 08:16; Admin Dose 2 DROP; Start 08/26/16 at 21:00 Eye Lubricant (Artificial Tears Oph) 2 drop QID BOTH EYES Last administered on 08/28/16 12:36; Admin Dose 2 DROP; Start 08/27/16 at 10:30 Acetaminophen/ Hydrocodone Bitart ([place] (5/325)) 1 tab Q4H PRN PO MODERATE PAIN LEVEL 4-6 Last administered on 08/28/16 12:36; Admin Dose 1 TAB; Start at 12:20 Methylprednisolone Sodium Succinate (Solu-Medrol) 80 mg Q8 IV Last administered on 08/28/16 06:09; Admin Dose 80 MG; Start 08/27/16 at 14:00 Carbamide Peroxide (Debrox Otic) 3 drop BID BOTH EARS ; Start 08/28/16 at 13:30 Rifampin (Rifampin) 600 mg DAILY PO ; Start 08/28/16 at 13:00 ANTONIETTA WESTBROOK MD Aug 28, 2016 13:23
--- NOTE | 2016-08-28 13:25 | PN ---
Date/Time of Note Date/Time of Note DATE: 08/27/16 TIME: 13:23 Assessment/Plan VTE Prophylaxis VTE Prophylaxis Intervention: SCD's Lines/Catheters IV [facility]ter Type (from [facility]): Peripheral IV Urinary Cath still in place: No Assessment/Plan Chief Complaint/Hosp Course ASSESSMENT AND PLAN: 1. Sepsis secondary to left periorbital cellulitis, treated with IV antibiotics at this time. Positive bacteremia/MRSA The patient has no pain with movement of his eyes and no urgent need for ophthalmology. Continue IV antibiotics. If the patient's condition does not improve, ophthalmology consultation should be considered. Continue vancomycin and discontinue imipenem 2. Bilateral ear pain, unlikely to be otitis media as the pain is bilateral, ENT has been consulted 3. History of bipolar disorder. The patient has no reported psychiatric medications. 4. History of tension headache with pain control. 5. Hyponatremia. Resolved 6. Prophylaxis with ambulation. Problems: Subjective 24 Hr Interval Summary Free Text/Dictation Complains of having swelling in left orbit Denies of any headache or dizziness Tolerating oral intake Denies of any chest pain or shortness of breath Exam/Review of Systems Vital Signs Vitals Vital Signs Date Time Temp Pulse Resp B/P Pulse Ox O2 Delivery O2 Flow Rate FiO2 08/28/16 08:47 98.1 70 20 133/66 95 08/26/16 19:50 Nasal Cannula 1.0 Intake and Output 08/27/16 08/27/16 08/28/16 15:00 23:00 07:00 Intake Total 250 ml 2910 ml 1050 ml Balance 250 ml 2910 ml 1050 ml Exam General: The patient is well-developed, Not in acute distress. HEENT: Atraumatic, normocephalic. The pupils are equal and round . Erythema and periorbital edema on the left eye Neck: Supple with full range of motion. Chest: Normal expansion of the thorax during inspiration Lungs: Clear to auscultation bilaterally Heart: Normal S1-S2, Regular rhythm and rate. Abdomen: Soft , nontender, nondistended , bowel sounds are present. Extremities: Normal to inspection, no edema no cyanosis Neurologic: Normal mental status,The patient is awake, alert and oriented . Results Result Diagram: 08/28/16 0415 08/28/16 0415 Results 24 hrs Laboratory Tests Test 08/28/16 04:15 White Blood Count 26.6 #H Red Blood Count 4.24 L Hemoglobin 12.3 L Hematocrit 36.9 L Mean Corpuscular Volume 87.0 Mean Corpuscular Hemoglobin 29.0 Mean Corpuscular Hemoglobin Concent 33.3 Red Cell Distribution Width 15.1 H Platelet Count 308 Mean Platelet Volume 11.9 H Neutrophils % 77.0 Band Neutrophils % 9.0 H Lymphocytes % 6.0 L Monocytes % 4.0 Myelocytes % 4.0 H Neutrophils # 20.5 H Lymphocytes # 1.6 Monocytes # 1.1 H Myelocytes # 1.1 Erythrocyte Sedimentation Rate 70 H Sodium Level 139 Potassium Level 3.6 Chloride Level 103 Carbon Dioxide Level 25 Anion Gap 15 Blood Urea Nitrogen 22 H Creatinine 0.75 Glucose Level 165 Calcium Level 8.8 Magnesium Level 2.4 C-Reactive Protein 8.2 H Thyroid Stimulating Hormone (TSH) 0.775 Medications Medications Current Medications Ondansetron HCl (Zofran Inj) 4 mg Q6H PRN IV NAUSEA AND/OR VOMITING Last administered on 08/27/16 23:36; Admin Dose 4 MG; Start 08/26/16 at 07:30 Acetaminophen (Tylenol Tab) 650 mg Q6H PRN PO PAIN LEVEL 1-3 OR FEVER Last administered on 08/26/16 14:32; Admin Dose 650 MG; Start 08/26/16 at 07:30 Morphine Sulfate (morphine) 2 mg Q4H PRN IV SEVERE PAIN LEVEL 7-10 Last administered on 08/27/16 23:36; Admin Dose 2 MG; Start 08/26/16 at 07:30 Docusate Sodium (Colace) 100 mg Q12 PRN PO CONSTIPATION; Start 08/26/16 at 07: 30 Zolpidem Tartrate 5 mg 5 mg QHS PRN PO SLEEP; Start 08/26/16 at 07:30 Vancomycin HCl (Vancocin) 250 ml @ 125 mls/hr Q8H IVPB Last administered on 09:57; Admin Dose 125 MLS/HR; Start 08/26/16 at 18:00 Ciprofloxacin HCl (Ciloxan 0.3% Oph) 2 drop BID BOTH EYES Last administered on 08/28/16 08:16; Admin Dose 2 DROP; Start 08/26/16 at 21:00 Eye Lubricant (Artificial Tears Oph) 2 drop QID BOTH EYES Last administered on 08/28/16 12:36; Admin Dose 2 DROP; Start 08/27/16 at 10:30 Acetaminophen/ Hydrocodone Bitart ([place] (5/325)) 1 tab Q4H PRN PO MODERATE PAIN LEVEL 4-6 Last administered on 08/28/16 12:36; Admin Dose 1 TAB; Start at 12:20 Methylprednisolone Sodium Succinate (Solu-Medrol) 80 mg Q8 IV Last administered on 08/28/16 06:09; Admin Dose 80 MG; Start 08/27/16 at 14:00 Carbamide Peroxide (Debrox Otic) 3 drop BID BOTH EARS ; Start 08/28/16 at 13:30 Rifampin (Rifampin) 600 mg DAILY PO ; Start 08/28/16 at 13:00 ANTONIETTA WESTBROOK MD Aug 28, 2016 13:24
[2016-08-28] MEDS: CARBAMIDE PEROXIDE 6.5% 15ML OTIC BOTH EARS SCH ×2 (13:30→21:00)
[2016-08-28] MEDS: RIFAMPIN 300 MG CAP PO SCH (14:16)
[2016-08-28] MEDS: VANCOMYCIN 1.25 GM in SOD CHLORIDE 0.9% 250 ML IVPB SCH (18:09)
[2016-08-28 19:17] VITALS: BP 137/81; RESP 18
[2016-08-28] MEDS: ZOLPIDEM 5 MG TAB PO PRN (21:20)
[2016-08-29] MEDS: VANCOMYCIN 1.25 GM in SOD CHLORIDE 0.9% 250 ML IVPB SCH ×3 (02:05→18:38)
[2016-08-29] MEDS: HYDROCODONE/APAP (5/325) TAB PO PRN ×5 (02:09→22:12)
[2016-08-29] MEDS: METHYLPREDNISOLONE 125 MG INJ IV SCH ×2 (05:18→13:22)
[2016-08-29 05:25] LABS: ADD SCAN DIFF NO
[2016-08-29 05:35] LABS: ABNORMAL IP MESSAGE 1; BASOPHIL # 0.1 10^3/ul (0.0-0.1); BASOPHILS % 0.5 % (0.0-2.0); HEMATOCRIT 39.4 % (42.0-52.0); HEMOGLOBIN 12.8 g/dl (14.0-18.0); LYMPHOCYTES # 2.1 10^3/ul (0.8-2.9); MEAN CORPUSCULAR HEMOGLOBIN 28.8 pg (29.0-33.0); MEAN CORPUSCULAR HGB CONC 32.5 g/dl (32.0-37.0); MEAN CORPUSCULAR VOLUME 88.5 fl (82.0-101.0); MEAN PLATELET VOLUME 11.7 fl (7.4-10.4); MONOCYTE # 1.5 10^3/ul (0.3-0.9); MONOCYTES % 7.1 % (0.0-11.0); NEUTROPHIL # 15.8 10^3/ul (1.6-7.5); NEUTROPHILS % 76.4 % (39.0-77.0); PLATELET COUNT 396 10^3/UL (140-415); RED BLOOD COUNT 4.45 10^6/ul (4.70-6.10); RED CELL DISTRIBUTION WIDTH 15.2 % (11.5-14.5); WHITE BLOOD COUNT 20.7 10^3/ul (4.8-10.8)
[2016-08-29 06:17] LABS: CALCIUM 8.4 mg/dl (8.4-10.2); CREATININE 0.79 mg/dl (0.61-1.24); MAGNESIUM 2.4 mg/dl (1.7-2.5)
[2016-08-29 07:00] VITALS: BP 131/68; RESP 20
[2016-08-29] MEDS: CIPROFLOXACIN 0.3% 2.5 ML OPH BOTH EYES SCH ×2 (09:04→20:45)
[2016-08-29] MEDS: ARTIFICIAL TEARS 15 ML OPH BOTH EYES SCH ×4 (09:04→22:07)
[2016-08-29] MEDS: RIFAMPIN 300 MG CAP PO SCH (09:04)
[2016-08-29] MEDS: CARBAMIDE PEROXIDE 6.5% 15ML OTIC BOTH EARS SCH ×2 (10:33→20:44)
--- NOTE | 2016-08-29 12:18 | CONS ---
Date/Time of Note Date/Time of Note DATE: 08/29/16 TIME: 12:15 Assessment/Plan Assessment/Plan Chief Complaint/Hosp Course No acute changes, alert, feels better, looks comfortable, no fevers, still has left eye double vision and photosensitivity. Left facial swelling is better Micro: Bld cx + MRSA Abx: Vanco Rifampin Physical examination: Well developed white man, in no distress + left sided periorbital/ facial swelling Neck: supple Chest: Clear to auscultation Abdomen: Soft, + BT Ext: no edema, no cyanosis Assessment: 1. MRSA bacteremia 2 to #2 2. Left periorbital/facial cellulitis ?mastoiditis 3. Chronic sinus disease 4. Bipolar disorder Plan: Clinically improving, seen by ENT yesterday, continue on current antibiotics, await for repeat blood cultures and anticipate discharge on IV vancomycin for 2 weeks. Pending ophthalmology evaluation DW pt Problems: Consultation Date/Type/Reason Admit Date/Time Aug 26, 2016 at 03:14 Type of Consultation: ID Exam/Review of Systems Vital Signs Vitals Vital Signs Date Time Temp Pulse Resp B/P Pulse Ox O2 Delivery O2 Flow Rate FiO2 08/29/16 07:00 98.1 66 20 131/68 96 08/26/16 19:50 Nasal Cannula 1.0 Intake and Output 08/28/16 08/28/16 08/29/16 15:00 23:00 07:00 Intake Total 1980 ml 900 ml Balance 1980 ml 900 ml Results Result Diagram: 08/29/16 0440 08/29/16 0440 Results 24 hrs Laboratory Tests Test 08/29/16 04:40 White Blood Count 20.7 #H Red Blood Count 4.45 L Hemoglobin 12.8 L Hematocrit 39.4 L Mean Corpuscular Volume 88.5 Mean Corpuscular Hemoglobin 28.8 L Mean Corpuscular Hemoglobin Concent 32.5 Red Cell Distribution Width 15.2 H Platelet Count 396 # Mean Platelet Volume 11.7 H Neutrophils % 76.4 Lymphocytes % 10.0 L Monocytes % 7.1 Eosinophils % 0.0 Basophils % 0.5 Nucleated Red Blood Cells % 0.0 Neutrophils # 15.8 H Lymphocytes # 2.1 Monocytes # 1.5 H Eosinophils # 0.0 Basophils # 0.1 Nucleated Red Blood Cells # 0.0 Sodium Level 138 Potassium Level 4.0 Chloride Level 102 Carbon Dioxide Level 30 Anion Gap 10 # Blood Urea Nitrogen 22 H Creatinine 0.79 Glucose Level 131 Calcium Level 8.4 Magnesium Level 2.4 Medications Medications Current Medications Ondansetron HCl (Zofran Inj) 4 mg Q6H PRN IV NAUSEA AND/OR VOMITING Last administered on 08/27/16 23:36; Admin Dose 4 MG; Start 08/26/16 at 07:30 Acetaminophen (Tylenol Tab) 650 mg Q6H PRN PO PAIN LEVEL 1-3 OR FEVER Last administered on 08/26/16 14:32; Admin Dose 650 MG; Start 08/26/16 at 07:30 Morphine Sulfate (morphine) 2 mg Q4H PRN IV SEVERE PAIN LEVEL 7-10 Last administered on 08/27/16 23:36; Admin Dose 2 MG; Start 08/26/16 at 07:30 Docusate Sodium (Colace) 100 mg Q12 PRN PO CONSTIPATION; Start 08/26/16 at 07: 30 Zolpidem Tartrate (Ambien) 5 mg QHS PRN PO SLEEP Last administered on 21:20; Admin Dose 5 MG; Start 08/26/16 at 07:30 Ciprofloxacin HCl (Ciloxan 0.3% Oph) 2 drop BID BOTH EYES Last administered on 08/29/16 09:04; Admin Dose 2 DROP; Start 08/26/16 at 21:00 Eye Lubricant (Artificial Tears Oph) 2 drop QID BOTH EYES Last administered on 08/29/16 09:04; Admin Dose 2 DROP; Start 08/27/16 at 10:30 Acetaminophen/ Hydrocodone Bitart ([place] (5/325)) 1 tab Q4H PRN PO MODERATE PAIN LEVEL 4-6 Last administered on 08/29/16 09:06; Admin Dose 1 TAB; Start at 12:20 Methylprednisolone Sodium Succinate (Solu-Medrol) 80 mg Q8 IV Last administered on 08/29/16 05:18; Admin Dose 80 MG; Start 08/27/16 at 14:00 Carbamide Peroxide (Debrox Otic) 3 drop BID BOTH EARS Last administered on 08/29 10:33; Admin Dose 3 DROP; Start 08/28/16 at 13:30 Rifampin 600 mg 600 mg DAILY PO Last administered on 08/29/16 09:04; Admin Dose 600 MG; Start 08/28/16 at 13:00 Vancomycin HCl/ Sodium Chloride (Vancocin/NS) 250 ml @ 83.333 mls/ hr Q8H IVPB Last administered on 08/29/16 09:05; Admin Dose 83.333 MLS/HR; Start at 18:00 Miscellaneous Information (*Rx Drug Level Order Reminder*) 1 ONCE ONCE XX ; Start 08/29/16 at 17:00; Stop 08/29/16 at 17:01 LUX LUONG NP Aug 29, 2016 12:18
--- NOTE | 2016-08-29 13:42 | PN ---
Date/Time of Note Date/Time of Note DATE: 08/29/16 TIME: 13:40 Assessment/Plan VTE Prophylaxis VTE Prophylaxis Intervention: SCD's Lines/Catheters IV Catheter Type (from Nrsg): Peripheral IV Urinary Cath still in place: No Assessment/Plan Assessment/Plan 40 yo M admitted for L eye pain, found to have periorbital cellulitis and MRSA bacteremia. #MRSA bacteremia and periorbital cellulitis -cont IV vanc -check TTE -PICC line once surveillance blood culture negative -no orbital involvement per optho -cont pain control -rationale for steroids unclear. will discontinue general diet dispo pending clear f/u cultures, PICC placement, and OPAT (outpatient antibiotic therapy) arrangements Subjective 24 Hr Interval Summary Free Text/Dictation pt seen by optho today. Relieved to have it confirmed he only has preorbital and not orbital cellulitis. Given his MRSA colonization, pt wondering if he needs to take precautions around his 10 month old Exam/Review of Systems Vital Signs Vitals Vital Signs Date Time Temp Pulse Resp B/P Pulse Ox O2 Delivery O2 Flow Rate FiO2 08/29/16 07:00 98.1 66 20 131/68 96 08/26/16 19:50 Nasal Cannula 1.0 Intake and Output 08/28/16 08/28/16 08/29/16 15:00 23:00 07:00 Intake Total 1980 ml 900 ml Balance 1980 ml 900 ml Exam nad, laying in bed wearing eye patch over L eye, mild erythema in periorbital area no mrg lungs clear abd soft surveillence blood culture cooking Results Result Diagram: 08/29/16 0440 08/29/16 0440 Results 24 hrs Laboratory Tests Test 08/29/16 04:40 White Blood Count 20.7 #H Red Blood Count 4.45 L Hemoglobin 12.8 L Hematocrit 39.4 L Mean Corpuscular Volume 88.5 Mean Corpuscular Hemoglobin 28.8 L Mean Corpuscular Hemoglobin Concent 32.5 Red Cell Distribution Width 15.2 H Platelet Count 396 # Mean Platelet Volume 11.7 H Neutrophils % 76.4 Lymphocytes % 10.0 L Monocytes % 7.1 Eosinophils % 0.0 Basophils % 0.5 Nucleated Red Blood Cells % 0.0 Neutrophils # 15.8 H Lymphocytes # 2.1 Monocytes # 1.5 H Eosinophils # 0.0 Basophils # 0.1 Nucleated Red Blood Cells # 0.0 Sodium Level 138 Potassium Level 4.0 Chloride Level 102 Carbon Dioxide Level 30 Anion Gap 10 # Blood Urea Nitrogen 22 H Creatinine 0.79 Glucose Level 131 Calcium Level 8.4 Magnesium Level 2.4 Medications Medications Current Medications Ondansetron HCl (Zofran Inj) 4 mg Q6H PRN IV NAUSEA AND/OR VOMITING Last administered on 08/27/16 23:36; Admin Dose 4 MG; Start 08/26/16 at 07:30 Acetaminophen (Tylenol Tab) 650 mg Q6H PRN PO PAIN LEVEL 1-3 OR FEVER Last administered on 08/26/16 14:32; Admin Dose 650 MG; Start 08/26/16 at 07:30 Morphine Sulfate (morphine) 2 mg Q4H PRN IV SEVERE PAIN LEVEL 7-10 Last administered on 08/27/16 23:36; Admin Dose 2 MG; Start 08/26/16 at 07:30 Docusate Sodium (Colace) 100 mg Q12 PRN PO CONSTIPATION; Start 08/26/16 at 07: 30 Zolpidem Tartrate (Ambien) 5 mg QHS PRN PO SLEEP Last administered on 21:20; Admin Dose 5 MG; Start 08/26/16 at 07:30 Ciprofloxacin HCl (Ciloxan 0.3% Oph) 2 drop BID BOTH EYES Last administered on 08/29/16 09:04; Admin Dose 2 DROP; Start 08/26/16 at 21:00 Eye Lubricant (Artificial Tears Oph) 2 drop QID BOTH EYES Last administered on 08/29/16 13:22; Admin Dose 2 DROP; Start 08/27/16 at 10:30 Acetaminophen/ Hydrocodone Bitart ([place] (5/325)) 1 tab Q4H PRN PO MODERATE PAIN LEVEL 4-6 Last administered on 08/29/16 13:22; Admin Dose 1 TAB; Start at 12:20 Methylprednisolone Sodium Succinate (Solu-Medrol) 80 mg Q8 IV Last administered on 08/29/16 13:22; Admin Dose 80 MG; Start 08/27/16 at 14:00 Carbamide Peroxide (Debrox Otic) 3 drop BID BOTH EARS Last administered on 08/29 10:33; Admin Dose 3 DROP; Start 6/27/17 at 13:30 Rifampin 600 mg 600 mg DAILY PO Last administered on 08/29/16 09:04; Admin Dose 600 MG; Start 08/28/16 at 13:00 Vancomycin HCl/ Sodium Chloride (Vancocin/NS) 250 ml @ 83.333 mls/ hr Q8H IVPB Last administered on 08/29/16 09:05; Admin Dose 83.333 MLS/HR; Start at 18:00 Miscellaneous Information (*Rx Drug Level Order Reminder*) 1 ONCE ONCE XX ; Start 08/29/16 at 17:00; Stop 08/29/16 at 17:01 MADELINE LEAL MD Aug 29, 2016 13:42
[2016-08-29 19:35] VITALS: BP 144/66; RESP 20
--- NOTE | 2016-08-29 19:50 | RADRPT ---
Echocardiogram Report Patient Name: TUSHAR RUIZ Gender: Male Date: 1975 Study Date: 29-Aug-2016 Topology Professor: Rebecca Au [facility] Location: 425 Ref. Physician: MADELINE LEAL Quality: Good Procedures: Transthoracic echocardiogram with complete 2D, M-Mode, and doppler examination. Indications: staph bactereremia, r/o IE. 2D/M Mode Doppler Measurement Value Normal Ranges Measurement Value Normal Ranges LVIDd 2D 4.7 3.5 - 5.6 cm AV Peak Thomas 1.7 m/sec LVIDs 2D 2.7 2.1 - 4.1 cm AV Peak PG 11.0 mmHg FS 2D 43.3 % LVOT Peak Toh[place] 1.3 m/sec LVPWd 2D 0.9 0.6 - 1.1 cm LVOT Peak PG 7.0 mmHg IVSd 2D 1.0 0.6 - 1.1 cm MV E Peak Thomas 1.0 m/sec IVS/LVPW 2D 1.1 MV A Peak Thomas 0.9 m/sec AoR Diam 2D 2.7 2.0 - 3.7 cm MV E/A 1.1 LA/Ao 2D 1 0 - 1 MV Decel Time 197 msec EDV 2D 103.0 cm3 MV E/A 1.1 ESV 2D 18.8 cm3 TR Peak Thomas 2.7 m/sec LA Dimen 2D 3.5 2.3 - 4.0 cm TR Peak PG 29.0 mmHg RVSP 32.0 mmHg Findings Left Ventricle: Normal left ventricular systolic function. Normal left ventricular cavity size. Normal left ventricular wall thickness. Ejection fraction is visually estimated at 65 %. Tissue Doppler/Mitral Doppler indices are within normal limits. Right Ventricle: Normal right ventricular size. Normal right ventricular systolic function. Left Atrium: The left atrium is normal in size. Right Atrium: The right atrium is normal in size. Mitral Valve: Mitral valve leaflets appear mildly thickened. Mild mitral annular calcification. Trace mitral regurgitation. Aortic Valve: Normal appearance of the aortic valve. No significant aortic stenosis or insufficiency. Tricuspid Valve: Normal appearance of the tricuspid valve. Estimated peak PA systolic pressure 32 mmHg. There is mild tricuspid regurgitation. Pulmonic Valve: Normal pulmonic valve appearance. Pericardium: Normal pericardium with no significant pericardial effusion. Aorta: Normal aortic root. IVC: Normal size and normal respiratory collapse consistent with normal right atrial pressure. Conclusions 1.Normal left ventricular systolic function. Normal left ventricular cavity size. Normal left ventricular wall thickness. Ejection fraction is visually estimated at 65 %. Tissue Doppler/Mitral Doppler indices are within normal limits. 2.Normal right ventricular size. Normal right ventricular systolic function. 3.Mitral valve leaflets appear mildly thickened. Mild mitral annular calcification. Trace mitral regurgitation. 4.Normal appearance of the tricuspid valve. Estimated peak PA systolic pressure 32 mmHg. There is mild tricuspid regurgitation. Electronically Signed By: Edgar Naidu 29-Aug-2016 19:48:47 -0700 Patient Name: TUSHAR RUIZ Study Date: 29-Aug-2016 [id number]
[2016-08-29] MEDS: ZOLPIDEM 5 MG TAB PO PRN (22:44)
[2016-08-30] MEDS: VANCOMYCIN 1 GM in NS 250 ML IVPB SCH ×3 (02:03→17:56)
[2016-08-30] MEDS: HYDROCODONE/APAP (5/325) TAB PO PRN ×5 (03:44→21:59)
[2016-08-30] MEDS ORDERED: KETOROLAC 15 MG INJ IV ONE (05:39)
[2016-08-30 07:39] VITALS: BP 147/74; RESP 20
[2016-08-30] MEDS: RIFAMPIN 300 MG CAP PO SCH (09:03)
[2016-08-30] MEDS: ARTIFICIAL TEARS 15 ML OPH BOTH EYES SCH ×4 (09:07→20:46)
[2016-08-30] MEDS: CIPROFLOXACIN 0.3% 2.5 ML OPH BOTH EYES SCH ×2 (09:07→20:45)
[2016-08-30] MEDS: CARBAMIDE PEROXIDE 6.5% 15ML OTIC BOTH EARS SCH ×2 (09:13→20:45)
[2016-08-30] MEDS ORDERED: NAPROXEN 500 MG TAB PO PRN (12:00)
--- NOTE | 2016-08-30 12:10 | CONS ---
Date/Time of Note Date/Time of Note DATE: 08/30/16 TIME: 12:08 Assessment/Plan Assessment/Plan Chief Complaint/Hosp Course 1. Cerumen impaction-start Debrox for increased cerumen 2. r/o Left AOM-continue IV abx Problems: Consultation Date/Type/Reason Admit Date/Time Aug 26, 2016 at 03:14 Date of Consultation: Aug 28, 2016 Type of Consultation: Otolaryngology Reason for Consultation Left hearing loss Hx of Present Illness 40yo male c/o left hearing loss, sporadic otalgia, no otorrhea, no tinnitus, no true vertigo or imbalance. Additional Comments Left preseptal cellulitis Right EAC increased cerumen, TM intact, no effusion Left EAC cerumen almost completely occluding the canal, part of TM seen is erythematous Past Medical History Medical History: no pertinent history Past Surgical History Past Surgical Hx: no surgical history Family History Significant Family History: no pertinent family hx Social History Alcohol Use: occasionally Smoking Status: Current every day smoker Exam/Review of Systems Vital Signs Vitals Vital Signs Date Time Temp Pulse Resp B/P Pulse Ox O2 Delivery O2 Flow Rate FiO2 08/30/16 07:39 98.2 64 20 147/74 94 08/26/16 19:50 Nasal Cannula 1.0 Intake and Output 08/29/16 08/29/16 08/30/16 15:00 23:00 07:00 Intake Total 250 ml 1750 ml 1270 ml Output Total 1200 ml 1180 ml Balance 250 ml 550 ml 90 ml Results Result Diagram: 08/29/16 0440 08/29/16 0440 Results 24 hrs Laboratory Tests Test 08/29/16 17:00 Vancomycin Level Trough 16.5 HIV (1&2) Antibody NEGATIVE Medications Medications Current Medications Ondansetron HCl (Zofran Inj) 4 mg Q6H PRN IV NAUSEA AND/OR VOMITING Last administered on 08/27/16 23:36; Admin Dose 4 MG; Start 08/26/16 at 07:30 Acetaminophen (Tylenol Tab) 650 mg Q6H PRN PO PAIN LEVEL 1-3 OR FEVER Last administered on 08/26/16 14:32; Admin Dose 650 MG; Start 08/26/16 at 07:30 Morphine Sulfate (morphine) 2 mg Q4H PRN IV SEVERE PAIN LEVEL 7-10 Last administered on 08/27/16 23:36; Admin Dose 2 MG; Start 08/26/16 at 07:30 Docusate Sodium (Colace) 100 mg Q12 PRN PO CONSTIPATION; Start 08/26/16 at 07: 30 Zolpidem Tartrate (Ambien) 5 mg QHS PRN PO SLEEP Last administered on 22:44; Admin Dose 5 MG; Start 08/26/16 at 07:30 Ciprofloxacin HCl (Ciloxan 0.3% Oph) 2 drop BID BOTH EYES Last administered on 08/30/16 09:07; Admin Dose 2 DROP; Start 08/26/16 at 21:00 Eye Lubricant (Artificial Tears Oph) 2 drop QID BOTH EYES Last administered on 08/30/16 09:07; Admin Dose 2 DROP; Start 08/27/16 at 10:30 Acetaminophen/ Hydrocodone Bitart ([place] (5/325)) 1 tab Q4H PRN PO MODERATE PAIN LEVEL 4-6 Last administered on 08/30/16 09:04; Admin Dose 1 TAB; Start at 12:20 Carbamide Peroxide (Debrox Otic) 3 drop BID BOTH EARS Last administered on 08/30 09:13; Admin Dose 3 DROP; Start 08/28/16 at 13:30 Rifampin 600 mg 600 mg DAILY PO Last administered on 08/30/16 09:03; Admin Dose 600 MG; Start 08/28/16 at 13:00 Vancomycin HCl (Vancocin) 250 ml @ 125 mls/hr Q8H IVPB Last administered on 09:07; Admin Dose 125 MLS/HR; Start 08/30/16 at 02:00 Naproxen (Naprosyn) 500 mg BID PRN PO PAIN LEVEL 7-10; Start 08/30/16 at 12:00 ; Status TERE LAMBERT MD Aug 30, 2016 12:10
--- NOTE | 2016-08-30 13:08 | CONS ---
Date/Time of Note Date/Time of Note DATE: 08/30/16 TIME: 13:06 Assessment/Plan Assessment/Plan Chief Complaint/Hosp Course No acute changes, alert, feels better, looks comfortable, no fevers, still has left eye double vision and photosensitivity. Left facial swelling is better Micro: Bld cx + MRSA, repeat blood cultures negative Abx: Vanco Rifampin Physical examination: Well developed white man, in no distress + left sided periorbital/ facial swelling Neck: supple Chest: Clear to auscultation Abdomen: Soft, + BT Ext: no edema, no cyanosis Assessment: 1. MRSA bacteremia 2 to #2 2. Left periorbital/facial cellulitis 3. Chronic sinus disease 4. Bipolar disorder Plan: Clinically improving, seen by ENT yesterday and ophthalmology this morning , repeat blood cultures negative, 2D echo was negative. Will order PICC line, showcase maker to arrange IV antibiotics at home for 2 weeks Discussed with patient at length Discussed with staff Problems: Consultation Date/Type/Reason Admit Date/Time Aug 26, 2016 at 03:14 Type of Consultation: Infectious disease Exam/Review of Systems Vital Signs Vitals Vital Signs Date Time Temp Pulse Resp B/P Pulse Ox O2 Delivery O2 Flow Rate FiO2 08/30/16 07:39 98.2 64 20 147/74 94 08/26/16 19:50 Nasal Cannula 1.0 Intake and Output 08/29/16 08/29/16 08/30/16 15:00 23:00 07:00 Intake Total 250 ml 1750 ml 1270 ml Output Total 1200 ml 1180 ml Balance 250 ml 550 ml 90 ml Results Result Diagram: 08/29/1643908/29/16 0440 Results 24 hrs Laboratory Tests Test 08/29/16 17:00 Vancomycin Level Trough 16.5 HIV (1&2) Antibody NEGATIVE Medications Medications Current Medications Ondansetron HCl (Zofran Inj) 4 mg Q6H PRN IV NAUSEA AND/OR VOMITING Last administered on 08/27/16 23:36; Admin Dose 4 MG; Start 08/26/16 at 07:30 Acetaminophen (Tylenol Tab) 650 mg Q6H PRN PO PAIN LEVEL 1-3 OR FEVER Last administered on 08/26/16 14:32; Admin Dose 650 MG; Start 08/26/16 at 07:30 Morphine Sulfate (morphine) 2 mg Q4H PRN IV SEVERE PAIN LEVEL 7-10 Last administered on 08/27/16 23:36; Admin Dose 2 MG; Start 08/26/16 at 07:30 Docusate Sodium (Colace) 100 mg Q12 PRN PO CONSTIPATION; Start 08/26/16 at 07: 30 Zolpidem Tartrate (Ambien) 5 mg QHS PRN PO SLEEP Last administered on 22:44; Admin Dose 5 MG; Start 08/26/16 at 07:30 Ciprofloxacin HCl (Ciloxan 0.3% Oph) 2 drop BID BOTH EYES Last administered on 08/30/16 09:07; Admin Dose 2 DROP; Start 08/26/16 at 21:00 Eye Lubricant (Artificial Tears Oph) 2 drop QID BOTH EYES Last administered on 08/30/16 09:07; Admin Dose 2 DROP; Start 08/27/16 at 10:30 Acetaminophen/ Hydrocodone Bitart ([place] (5/325)) 1 tab Q4H PRN PO MODERATE PAIN LEVEL 4-6 Last administered on 08/30/16 09:04; Admin Dose 1 TAB; Start at 12:20 Carbamide Peroxide (Debrox Otic) 3 drop BID BOTH EARS Last administered on 08/30 09:13; Admin Dose 3 DROP; Start 08/28/16 at 13:30 Rifampin 600 mg 600 mg DAILY PO Last administered on 08/30/16 09:03; Admin Dose 600 MG; Start 08/28/16 at 13:00 Vancomycin HCl (Vancocin) 250 ml @ 125 mls/hr Q8H IVPB Last administered on 09:07; Admin Dose 125 MLS/HR; Start 08/30/16 at 02:00 Naproxen (Naprosyn) 500 mg BID PRN PO PAIN LEVEL 7-10; Start 08/30/16 at 12:00 LUX LUONG NP Aug 30, 2016 13:08
--- NOTE | 2016-08-30 13:09 | CONS ---
Date/Time of Note Date/Time of Note DATE: 08/30/16 TIME: 13:05 Assessment/Plan Assessment/Plan Chief Complaint/Hosp Course 1. Cerumen impaction-continue Debrox for increased cerumen 2. Left AOM-start clarithromycin as IV abx have been cut down to vancomycin only 3. Left conductive hearing loss-expected with left AOM, f/u with ENT one week after discharge Problems: Consultation Date/Type/Reason Admit Date/Time Aug 26, 2016 at 03:14 Initial Consult Date 08/28/16 Type of Consultation: Otolaryngology Reason for Consultation Left hearing loss Exam/Review of Systems Vital Signs Vitals Vital Signs Date Time Temp Pulse Resp B/P Pulse Ox O2 Delivery O2 Flow Rate FiO2 08/30/16 07:39 98.2 64 20 147/74 94 08/26/16 19:50 Nasal Cannula 1.0 Intake and Output 08/29/16 08/29/16 08/30/16 15:00 23:00 07:00 Intake Total 250 ml 1750 ml 1270 ml Output Total 1200 ml 1180 ml Balance 250 ml 550 ml 90 ml Exam Still with increased cerumen , but part of TM seen no longer erythematous Rinne to (+) right, (-) left Grimaldo to left Results Result Diagram: 08/29/16 0440 08/29/16 0440 Results 24 hrs Laboratory Tests Test 08/29/16 17:00 Vancomycin Level Trough 16.5 HIV (1&2) Antibody NEGATIVE Medications Medications Current Medications Ondansetron HCl (Zofran Inj) 4 mg Q6H PRN IV NAUSEA AND/OR VOMITING Last administered on 08/27/16 23:36; Admin Dose 4 MG; Start 08/26/16 at 07:30 Acetaminophen (Tylenol Tab) 650 mg Q6H PRN PO PAIN LEVEL 1-3 OR FEVER Last administered on 08/26/16 14:32; Admin Dose 650 MG; Start 08/26/16 at 07:30 Morphine Sulfate (morphine) 2 mg Q4H PRN IV SEVERE PAIN LEVEL 7-10 Last administered on 08/27/16 23:36; Admin Dose 2 MG; Start 08/26/16 at 07:30 Docusate Sodium (Colace) 100 mg Q12 PRN PO CONSTIPATION; Start 08/26/16 at 07: 30 Zolpidem Tartrate (Ambien) 5 mg QHS PRN PO SLEEP Last administered on 22:44; Admin Dose 5 MG; Start 08/26/16 at 07:30 Ciprofloxacin HCl (Ciloxan 0.3% Oph) 2 drop BID BOTH EYES Last administered on 08/30/16 09:07; Admin Dose 2 DROP; Start 08/26/16 at 21:00 Eye Lubricant (Artificial Tears Oph) 2 drop QID BOTH EYES Last administered on 08/30/16 09:07; Admin Dose 2 DROP; Start 08/27/16 at 10:30 Acetaminophen/ Hydrocodone Bitart ([place] (5/325)) 1 tab Q4H PRN PO MODERATE PAIN LEVEL 4-6 Last administered on 08/30/16 09:04; Admin Dose 1 TAB; Start at 12:20 Carbamide Peroxide (Debrox Otic) 3 drop BID BOTH EARS Last administered on 08/30 09:13; Admin Dose 3 DROP; Start 08/28/16 at 13:30 Rifampin 600 mg 600 mg DAILY PO Last administered on 08/30/16 09:03; Admin Dose 600 MG; Start 08/28/16 at 13:00 Vancomycin HCl (Vancocin) 250 ml @ 125 mls/hr Q8H IVPB Last administered on 09:07; Admin Dose 125 MLS/HR; Start 08/30/16 at 02:00 Naproxen (Naprosyn) 500 mg BID PRN PO PAIN LEVEL 7-10; Start 08/30/16 at 12:00 TERE HOLLOWAY MD Aug 30, 2016 13:08
[2016-08-30] MEDS ORDERED: LIDOCAINE 1% (MPF) 5 ML VIAL SC ONE (13:30)
--- NOTE | 2016-08-30 15:56 | PN ---
Date/Time of Note Date/Time of Note DATE: 08/30/16 TIME: 15:54 Assessment/Plan VTE Prophylaxis VTE Prophylaxis Intervention: SCD's Lines/Catheters IV Catheter Type (from Nrsg): Saline Lock Urinary Cath still in place: No Assessment/Plan Assessment/Plan 40 yo M admitted for L eye pain, found to have periorbital cellulitis and MRSA bacteremia. #MRSA bacteremia and periorbital cellulitis; TTE without evidence of IE -cont IV vanc -PICC line today -no orbital involvement per optho -cont pain control #AOM: abx as per ENT general diet dispo pending PICC placement, and OPAT (outpatient antibiotic therapy) arrangements Subjective 24 Hr Interval Summary Free Text/Dictation Jovial. Excited about the prospect of going home tomorrow with HH Exam/Review of Systems Vital Signs Vitals Vital Signs Date Time Temp Pulse Resp B/P Pulse Ox O2 Delivery O2 Flow Rate FiO2 08/30/16 07:39 98.2 64 20 147/74 94 08/26/16 19:50 Nasal Cannula 1.0 Intake and Output 08/29/16 08/29/16 08/30/16 15:00 23:00 07:00 Intake Total 250 ml 1750 ml 1270 ml Output Total 1200 ml 1180 ml Balance 250 ml 550 ml 90 ml Exam nad ,eyepatch on L eye no mrg lungs clear abd soft no rashes surveillence blood cultures negative TTE dw supply requirements officer who read the study, no evidence of valvular vegetation Results Result Diagram: 08/29/16 0440 08/29/16 0440 Results 24 hrs Laboratory Tests Test 08/29/16 17:00 Vancomycin Level Trough 16.5 HIV (1&2) Antibody NEGATIVE Medications Medications Current Medications Ondansetron HCl (Zofran Inj) 4 mg Q6H PRN IV NAUSEA AND/OR VOMITING Last administered on 08/27/16 23:36; Admin Dose 4 MG; Start 08/26/16 at 07:30 Acetaminophen (Tylenol Tab) 650 mg Q6H PRN PO PAIN LEVEL 1-3 OR FEVER Last administered on 08/26/16 14:32; Admin Dose 650 MG; Start 08/26/16 at 07:30 Morphine Sulfate (morphine) 2 mg Q4H PRN IV SEVERE PAIN LEVEL 7-10 Last administered on 08/27/16 23:36; Admin Dose 2 MG; Start 08/26/16 at 07:30 Docusate Sodium (Colace) 100 mg Q12 PRN PO CONSTIPATION; Start 08/26/16 at 07: 30 Zolpidem Tartrate (Ambien) 5 mg QHS PRN PO SLEEP Last administered on 22:44; Admin Dose 5 MG; Start 08/26/16 at 07:30 Ciprofloxacin HCl (Ciloxan 0.3% Oph) 2 drop BID BOTH EYES Last administered on 08/30/16 09:07; Admin Dose 2 DROP; Start 08/26/16 at 21:00 Eye Lubricant (Artificial Tears Oph) 2 drop QID BOTH EYES Last administered on 08/30/16 13:10; Admin Dose 2 DROP; Start 08/27/16 at 10:30 Acetaminophen/ Hydrocodone Bitart ([place] (5/325)) 1 tab Q4H PRN PO MODERATE PAIN LEVEL 4-6 Last administered on 08/30/16 13:10; Admin Dose 1 TAB; Start at 12:20 Carbamide Peroxide (Debrox Otic) 3 drop BID BOTH EARS Last administered on 08/30 09:13; Admin Dose 3 DROP; Start 08/28/16 at 13:30 Rifampin 600 mg 600 mg DAILY PO Last administered on 08/30/16 09:03; Admin Dose 600 MG; Start 08/28/16 at 13:00 Vancomycin HCl (Vancocin) 250 ml @ 125 mls/hr Q8H IVPB Last administered on 09:07; Admin Dose 125 MLS/HR; Start 08/30/16 at 02:00 Naproxen (Naprosyn) 500 mg BID PRN PO PAIN LEVEL 7-10; Start 08/30/16 at 12:00 Clarithromycin (Biaxin) 500 mg BID PO ; Start 08/30/16 at 21:00; Stop 09/09/16 at 20:59 MADELINE LEAL MD Aug 30, 2016 15:55
[2016-08-30] MEDS ORDERED: traMADol 50 MG TAB PO STA (16:08)
[2016-08-30 19:18] VITALS: BP 154/84; RESP 20
[2016-08-30] MEDS: CLARITHROMYCIN 500 MG TAB PO SCH (20:49)
[2016-08-30] MEDS: ZOLPIDEM 5 MG TAB PO PRN (21:59)
[2016-08-31] MEDS: VANCOMYCIN 1 GM in NS 250 ML IVPB SCH ×3 (01:51→18:06)
[2016-08-31] MEDS: HYDROCODONE/APAP (5/325) TAB PO PRN ×6 (01:52→21:03)
[2016-08-31 06:00] LABS: CREATININE 0.82 mg/dl (0.61-1.24)
[2016-08-31 07:33] VITALS: BP 135/86; RESP 18
[2016-08-31] MEDS: RIFAMPIN 300 MG CAP PO SCH (09:01)
[2016-08-31] MEDS: CLARITHROMYCIN 500 MG TAB PO SCH ×2 (09:01→21:03)
[2016-08-31] MEDS: ARTIFICIAL TEARS 15 ML OPH BOTH EYES SCH ×4 (09:01→22:17)
[2016-08-31] MEDS: CARBAMIDE PEROXIDE 6.5% 15ML OTIC BOTH EARS SCH ×2 (09:02→21:05)
[2016-08-31] MEDS: CIPROFLOXACIN 0.3% 2.5 ML OPH BOTH EYES SCH ×2 (09:02→21:06)
[2016-08-31] MEDS ORDERED: SOD CHLORIDE 0.9% 100 ML ONE (11:35)
--- NOTE | 2016-08-31 11:38 | RADRPT ---
PROCEDURE: Ultrasound guidance for placement of needle in right upper extremity vein. CLINICAL INDICATION: Venous access. TECHNIQUE: Limited sonography of the right upper extremity was performed. Ultrasound images were recorded and stored in the patient's medical record. COMPARISON: None. FINDINGS: The ultrasound images demonstrate a patent right upper extremity vein. The PICC line was inserted b y the PICC line nurse. IMPRESSION: 1. Ultrasound guidance for a needle placement in a right upper extremity vein. 2. The visualized right upper extremity vein is patent. RPTAT: QQ .Allan Dash MD, MD Date Time Electronically viewed and signed by .Allan Dash MD, MD on 08/31/2016 11:38 .R/
--- NOTE | 2016-08-31 12:12 | RADRPT ---
PROCEDURE: XR Chest. CLINICAL INDICATION: Check PICC line position. TECHNIQUE: Single frontal view. COMPARISON: No prior study is available for comparison. FINDINGS: There is a left arm PICC line with the tip in the lower superior vena cava. The lungs are clear. The heart size is normal. There is no pleural effusion. There is no pneumothorax. IMPRESSION: 1. Satisfactory position of left arm PICC line. 2. Otherwise normal chest radiograph. RPTAT: QQ .Allan Dash MD, MD Date Time Electronically viewed and signed by .Allan Dash MD, MD on 08/31/2016 12:12 .R/
--- NOTE | 2016-08-31 13:49 | PN ---
Date/Time of Note Date/Time of Note DATE: 08/31/16 TIME: 13:48 Assessment/Plan VTE Prophylaxis VTE Prophylaxis Intervention: SCD's Lines/Catheters IV Catheter Type (from Nrsg): PICC Line Central line still needed: Yes Urinary Cath still in place: No Assessment/Plan Assessment/Plan 40 yo M admitted for L eye pain, found to have periorbital cellulitis and MRSA bacteremia. Now with + surveillance blood cultures from after treatment was already started. #MRSA bacteremia and periorbital cellulitis; TTE without evidence of IE HOWEVER surveillance cultures + -check MOLLY and tagged WBC scan -cont IV vanc -PICC line placed today -no orbital involvement per optho -cont pain control #AOM: abx as per ENT general diet dispo pending MOLLY (likely won't be till Saturday) Subjective 24 Hr Interval Summary Free Text/Dictation Feels well, anxious to go home. Of note, after I saw the patient this AM, I ran into the [employer] who notified me that pt's surveillance blood cultures are now 2/2+ for SAureus. Exam/Review of Systems Vital Signs Vitals Vital Signs Date Time Temp Pulse Resp B/P Pulse Ox O2 Delivery O2 Flow Rate FiO2 08/31/16 07:33 98.6 76 18 135/86 94 Intake and Output 08/30/16 08/30/16 08/31/16 15:00 23:00 07:00 Intake Total 250 ml 1750 ml 1950 ml Balance 250 ml 1750 ml 1950 ml Exam nad sitting up in bed +erythema and swelling under L eye, +mild chemosis of R eye no mrg lungs clear abd soft no le swelling Results Result Diagram: 08/29/16 0440 08/31/16 0415 Results 24 hrs Laboratory Tests Test 08/31/16 04:15 Blood Urea Nitrogen 11 # Creatinine 0.82 Medications Medications Current Medications Ondansetron HCl (Zofran Inj) 4 mg Q6H PRN IV NAUSEA AND/OR VOMITING Last administered on 08/27/16 23:36; Admin Dose 4 MG; Start 08/26/16 at 07:30 Acetaminophen (Tylenol Tab) 650 mg Q6H PRN PO PAIN LEVEL 1-3 OR FEVER Last administered on 08/26/16 14:32; Admin Dose 650 MG; Start 08/26/16 at 07:30 Morphine Sulfate (morphine) 2 mg Q4H PRN IV SEVERE PAIN LEVEL 7-10 Last administered on 08/27/16 23:36; Admin Dose 2 MG; Start 08/26/16 at 07:30 Docusate Sodium (Colace) 100 mg Q12 PRN PO CONSTIPATION; Start 08/26/16 at 07: 30 Zolpidem Tartrate (Ambien) 5 mg QHS PRN PO SLEEP Last administered on 21:59; Admin Dose 5 MG; Start 08/26/16 at 07:30 Ciprofloxacin HCl (Ciloxan 0.3% Oph) 2 drop BID BOTH EYES Last administered on 08/31/16 09:02; Admin Dose 2 DROP; Start 08/26/16 at 21:00 Eye Lubricant (Artificial Tears Oph) 2 drop QID BOTH EYES Last administered on 08/31/16 13:26; Admin Dose 2 DROP; Start 08/27/16 at 10:30 Acetaminophen/ Hydrocodone Bitart ([place] (5/325)) 1 tab Q4H PRN PO MODERATE PAIN LEVEL 4-6 Last administered on 08/31/16 13:25; Admin Dose 1 TAB; Start at 12:20 Carbamide Peroxide (Debrox Otic) 3 drop BID BOTH EARS Last administered on 08/31 09:02; Admin Dose 3 DROP; Start 08/28/16 at 13:30 Rifampin 600 mg 600 mg DAILY PO Last administered on 08/31/16 09:01; Admin Dose 600 MG; Start 08/28/16 at 13:00 Vancomycin HCl (Vancocin) 250 ml @ 125 mls/hr Q8H IVPB Last administered on 09:49; Admin Dose 125 MLS/HR; Start 08/30/16 at 02:00 Naproxen (Naprosyn) 500 mg BID PRN PO PAIN LEVEL 7-10; Start 08/30/16 at 12:00 Clarithromycin (Biaxin) 500 mg BID PO Last administered on 08/31/16 09:01; Admin Dose 500 MG; Start 08/30/16 at 21:00; Stop 09/09/16 at 20:59 IV Flush (NS 10 ml) 10 ml PRN PRN IV IV PROTOCOL; Start 08/31/16 at 12:30 MADELINE LEAL MD Aug 31, 2016 13:49
--- NOTE | 2016-08-31 15:23 | CONS ---
Date/Time of Note Date/Time of Note DATE: 08/31/16 TIME: 15:21 Assessment/Plan Assessment/Plan Chief Complaint/Hosp Course No acute changes, alert, looks comfortable, no fevers Micro: Bld cx + MRSA, repeat blood cultures growing gram-positive cocci today Indwelling: PICC line Abx: Vanco Rifampin Physical examination: Well developed white man, in no distress + left sided periorbital/ facial swelling Neck: supple Chest: Clear to auscultation Abdomen: Soft, + BT Ext: no edema, no cyanosis Assessment: 1. Persistent MRSA bacteremia likely 2 to #2, rule out other etiologies 2. Left periorbital/facial cellulitis 3. Chronic sinus disease 4. Bipolar disorder Plan: Clinically stable, seen by ENT ophthalmology, repeat blood cultures growing gram-positive cocci. Will order MOLLY, if negative WBC labeled nuclear scan. Continue on current antimicrobials. Discussed with patient. Discussed with Dr. Naidu Problems: Consultation Date/Type/Reason Admit Date/Time Aug 26, 2016 at 03:14 Type of Consultation: Infectious disease Exam/Review of Systems Vital Signs Vitals Vital Signs Date Time Temp Pulse Resp B/P Pulse Ox O2 Delivery O2 Flow Rate FiO2 08/31/16 07:33 98.6 76 18 135/86 94 Intake and Output 08/30/16 08/30/16 08/31/16 15:00 23:00 07:00 Intake Total 250 ml 1750 ml 1950 ml Balance 250 ml 1750 ml 1950 ml Results Result Diagram: 08/29/16 0440 08/31/16 0415 Results 24 hrs Laboratory Tests Test 08/31/16 04:15 Blood Urea Nitrogen 11 # Creatinine 0.82 Medications Medications Current Medications Ondansetron HCl (Zofran Inj) 4 mg Q6H PRN IV NAUSEA AND/OR VOMITING Last administered on 08/27/16 23:36; Admin Dose 4 MG; Start 08/26/16 at 07:30 Acetaminophen (Tylenol Tab) 650 mg Q6H PRN PO PAIN LEVEL 1-3 OR FEVER Last administered on 08/26/16 14:32; Admin Dose 650 MG; Start 08/26/16 at 07:30 Morphine Sulfate (morphine) 2 mg Q4H PRN IV SEVERE PAIN LEVEL 7-10 Last administered on 08/27/16 23:36; Admin Dose 2 MG; Start 08/26/16 at 07:30 Docusate Sodium (Colace) 100 mg Q12 PRN PO CONSTIPATION; Start 08/26/16 at 07: 30 Zolpidem Tartrate (Ambien) 5 mg QHS PRN PO SLEEP Last administered on 21:59; Admin Dose 5 MG; Start 08/26/16 at 07:30 Ciprofloxacin HCl (Ciloxan 0.3% Oph) 2 drop BID BOTH EYES Last administered on 08/31/16 09:02; Admin Dose 2 DROP; Start 08/26/16 at 21:00 Eye Lubricant (Artificial Tears Oph) 2 drop QID BOTH EYES Last administered on 08/31/16 13:26; Admin Dose 2 DROP; Start 08/27/16 at 10:30 Acetaminophen/ Hydrocodone Bitart ([place] (5/325)) 1 tab Q4H PRN PO MODERATE PAIN LEVEL 4-6 Last administered on 08/31/16 13:25; Admin Dose 1 TAB; Start at 12:20 Carbamide Peroxide (Debrox Otic) 3 drop BID BOTH EARS Last administered on 08/31 09:02; Admin Dose 3 DROP; Start 08/28/16 at 13:30 Rifampin 600 mg 600 mg DAILY PO Last administered on 08/31/16 09:01; Admin Dose 600 MG; Start 08/28/16 at 13:00 Vancomycin HCl (Vancocin) 250 ml @ 125 mls/hr Q8H IVPB Last administered on 09:49; Admin Dose 125 MLS/HR; Start 08/30/16 at 02:00 Naproxen (Naprosyn) 500 mg BID PRN PO PAIN LEVEL 7-10; Start 08/30/16 at 12:00 Clarithromycin (Biaxin) 500 mg BID PO Last administered on 08/31/16 09:01; Admin Dose 500 MG; Start 08/30/16 at 21:00; Stop 09/09/16 at 20:59 IV Flush (NS 10 ml) 10 ml PRN PRN IV IV PROTOCOL; Start 08/31/16 at 12:30 LUX LUONG NP Aug 31, 2016 15:23
--- NOTE | 2016-08-31 15:45 | CONS ---
Date/Time of Note Date/Time of Note DATE: 08/31/16 TIME: 15:39 Assessment/Plan Assessment/Plan Chief Complaint/Hosp Course IMP: 1. Bacteremia-persistent MRSA 2.periorbital celluitis 3.bipolar d/o Recc: -MOLLY next week to assess for intracardiac source of infection -Contiue abx's -F/U cx data Problems: Consultation Date/Type/Reason Admit Date/Time Aug 26, 2016 at 03:14 Date of Consultation: Aug 31, 2016 Type of Consultation: Cardiology Reason for Consultation Bacteremia Referring Provider: MADELINE LEAL MD Hx of Present Illness 40 y/o male with h/o bipolar d/o who p/w periorbital celluitis and now has persistent MRSA bacteremia Constitutional: febrile Eyes: no complaints ENT: pain Respiratory: no complaints Cardiovascular: no complaints Gastrointestinal: no complaints Genitourinary: no complaints Musculoskeletal: no complaints Skin: erythema Neurologic: no complaints Endocrine: no complaints Lymphatic: no complaints Psychological: other (bipolar) Past Medical History Medical History: no pertinent history Past Surgical History Past Surgical Hx: no surgical history Family History Significant Family History: no pertinent family hx Social History Alcohol Use: occasionally Smoking Status: Current every day smoker Drug Use: none Exam/Review of Systems Vital Signs Vitals Vital Signs Date Time Temp Pulse Resp B/P Pulse Ox O2 Delivery O2 Flow Rate FiO2 08/31/16 07:33 98.6 76 18 135/86 94 Intake and Output 08/30/16 08/30/16 08/31/16 15:00 23:00 07:00 Intake Total 250 ml 1750 ml 1950 ml Balance 250 ml 1750 ml 1950 ml Exam Constitutional: alert, oriented Psych: no complaints Head: normocephalic Eyes: other (periorbital swelling/erythema L side) ENMT: mucosa pink and moist Neck: jvd (8 cm water), supple Respiratory: clear to auscultation Cardiovascular: regular rate and rhythm Gastrointestinal: non-tender, soft Musculoskeletal: muscle tone (normal) Extremities: edema (none) Neurological: other (No focal deficits) Results Result Diagram: 08/29/16 0440 08/31/16 0415 Results 24 hrs Laboratory Tests Test 08/31/16 04:15 Blood Urea Nitrogen 11 # Creatinine 0.82 Medications Medications Current Medications Ondansetron HCl (Zofran Inj) 4 mg Q6H PRN IV NAUSEA AND/OR VOMITING Last administered on 08/27/16 23:36; Admin Dose 4 MG; Start 08/26/16 at 07:30 Acetaminophen (Tylenol Tab) 650 mg Q6H PRN PO PAIN LEVEL 1-3 OR FEVER Last administered on 08/26/16 14:32; Admin Dose 650 MG; Start 08/26/16 at 07:30 Morphine Sulfate (morphine) 2 mg Q4H PRN IV SEVERE PAIN LEVEL 7-10 Last administered on 08/27/16 23:36; Admin Dose 2 MG; Start 08/26/16 at 07:30 Docusate Sodium (Colace) 100 mg Q12 PRN PO CONSTIPATION; Start 08/26/16 at 07: 30 Zolpidem Tartrate (Ambien) 5 mg QHS PRN PO SLEEP Last administered on 21:59; Admin Dose 5 MG; Start 08/26/16 at 07:30 Ciprofloxacin HCl (Ciloxan 0.3% Oph) 2 drop BID BOTH EYES Last administered on 08/31/16 09:02; Admin Dose 2 DROP; Start 08/26/16 at 21:00 Eye Lubricant (Artificial Tears Oph) 2 drop QID BOTH EYES Last administered on 08/31/16 13:26; Admin Dose 2 DROP; Start 08/27/16 at 10:30 Acetaminophen/ Hydrocodone Bitart ([place] (5/325)) 1 tab Q4H PRN PO MODERATE PAIN LEVEL 4-6 Last administered on 08/31/16 13:25; Admin Dose 1 TAB; Start at 12:20 Carbamide Peroxide (Debrox Otic) 3 drop BID BOTH EARS Last administered on 08/31 09:02; Admin Dose 3 DROP; Start 08/28/16 at 13:30 Rifampin 600 mg 600 mg DAILY PO Last administered on 08/31/16 09:01; Admin Dose 600 MG; Start 08/28/16 at 13:00 Vancomycin HCl (Vancocin) 250 ml @ 125 mls/hr Q8H IVPB Last administered on 09:49; Admin Dose 125 MLS/HR; Start 08/30/16 at 02:00 Naproxen (Naprosyn) 500 mg BID PRN PO PAIN LEVEL 7-10; Start 08/30/16 at 12:00 Clarithromycin (Biaxin) 500 mg BID PO Last administered on 08/31/16t 09:01; Admin Dose 500 MG; Start 08/30/16 at 21:00; Stop 09/09/16 at 20:59 IV Flush (NS 10 ml) 10 ml PRN PRN IV IV PROTOCOL; Start 08/31/16 at 12:30 Miscellaneous Information (*Rx Drug Level Order Reminder*) 1 ONCE ONCE XX ; Start 09/01/16 at 01:00; Stop 09/01/16 at 01:01 CAMILA DELGADO Aug 31, 2016 15:45
[2016-08-31 16:22] VITALS: BP 149/90; PULSE 89; RESP 18
[2016-08-31] MEDS: ACETAMINOPHEN 325 MG TAB PO PRN (16:28)
[2016-08-31 19:30] VITALS: BP 139/84; RESP 22
[2016-08-31] MEDS ORDERED: VITAMIN A & D 5 GM OINT PACKET TOP ONE (22:05)
[2016-08-31] MEDS: ZOLPIDEM 5 MG TAB PO PRN (22:17)
[2016-09-01] MEDS: HYDROCODONE/APAP (5/325) TAB PO PRN ×6 (00:49→23:17)
[2016-09-01] MEDS: VANCOMYCIN 1 GM in NS 250 ML IVPB SCH ×2 (01:53→09:56)
[2016-09-01 07:35] VITALS: BP 136/82; RESP 20
[2016-09-01] MEDS: CARBAMIDE PEROXIDE 6.5% 15ML OTIC BOTH EARS SCH ×2 (08:53→21:34)
[2016-09-01] MEDS: ARTIFICIAL TEARS 15 ML OPH BOTH EYES SCH ×4 (08:53→21:34)
[2016-09-01] MEDS: CLARITHROMYCIN 500 MG TAB PO SCH ×2 (08:53→21:35)
[2016-09-01] MEDS: CIPROFLOXACIN 0.3% 2.5 ML OPH BOTH EYES SCH (08:53)
[2016-09-01] MEDS: RIFAMPIN 300 MG CAP PO SCH (08:53)
--- NOTE | 2016-09-01 12:23 | PN ---
Date/Time of Note Date/Time of Note DATE: 09/01/16 TIME: 12:15 Assessment/Plan VTE Prophylaxis VTE Prophylaxis Intervention: SCD's Lines/Catheters IV Catheter Type (from Nrsg): PICC Line Central line still needed: Yes Urinary Cath still in place: No Assessment/Plan Assessment/Plan 40 yo M admitted for L eye pain, found to have periorbital cellulitis and MRSA bacteremia. + surveillance blood cultures from after treatment was already started. #MRSA bacteremia and periorbital cellulitis; TTE without evidence of IE HOWEVER surveillance cultures + -check MOLLY and tagged WBC scan -cont IV vanc -PICC line placed today -no orbital involvement per optho -cont pain control #AOM: abx as per ENT general diet dispo pending MOLLY (likely won't be till Saturday) Subjective 24 Hr Interval Summary Free Text/Dictation periorbital swelling and erythema around L eye improving ,R eye erythema and swelling resolved. Exam/Review of Systems Vital Signs Vitals Vital Signs Date Time Temp Pulse Resp B/P Pulse Ox O2 Delivery O2 Flow Rate FiO2 09/01/16 07:35 98.7 76 20 136/82 97 08/31/16 16:22 Room Air Intake and Output 08/31/16 08/31/16 09/01/16 15:00 23:00 07:00 Intake Total 250 ml 1850 ml 1650 ml Balance 250 ml 1850 ml 1650 ml Exam nad, sitting up in bed no mrg lungs clear abd soft no rashes Results Result Diagram: 08/29/16 0440 08/31/16 0415 Results 24 hrs Laboratory Tests Test 09/01/16 00:55 Vancomycin Level Trough 15.5 Medications Medications Current Medications Ondansetron HCl (Zofran Inj) 4 mg Q6H PRN IV NAUSEA AND/OR VOMITING Last administered on 08/27/16 23:36; Admin Dose 4 MG; Start 08/26/16 at 07:30 Acetaminophen (Tylenol Tab) 650 mg Q6H PRN PO PAIN LEVEL 1-3 OR FEVER Last administered on 08/31/16 16:28; Admin Dose 650 MG; Start 08/26/16 at 07:30 Morphine Sulfate (morphine) 2 mg Q4H PRN IV SEVERE PAIN LEVEL 7-10 Last administered on 08/27/16 23:36; Admin Dose 2 MG; Start 08/26/16 at 07:30 Docusate Sodium (Colace) 100 mg Q12 PRN PO CONSTIPATION; Start 08/26/16 at 07: 30 Zolpidem Tartrate (Ambien) 5 mg QHS PRN PO SLEEP Last administered on 22:17; Admin Dose 5 MG; Start 08/26/16 at 07:30 Ciprofloxacin HCl (Ciloxan 0.3% Oph) 2 drop BID BOTH EYES Last administered on 09/01/16 08:53; Admin Dose 2 DROP; Start 08/26/16 at 21:00 Eye Lubricant (Artificial Tears Oph) 2 drop QID BOTH EYES Last administered on 09/01/16 08:53; Admin Dose 2 DROP; Start 08/27/16 at 10:30 Acetaminophen/ Hydrocodone Bitart ([place] (5/325)) 1 tab Q4H PRN PO MODERATE PAIN LEVEL 4-6 Last administered on 09/01/16 09:55; Admin Dose 1 TAB; Start at 12:20 Carbamide Peroxide (Debrox Otic) 3 drop BID BOTH EARS Last administered on 08:53; Admin Dose 3 DROP; Start 08/28/16 at 13:30 Rifampin 600 mg 600 mg DAILY PO Last administered on 09/01/16 08:53; Admin Dose 600 MG; Start 08/28/16 at 13:00 Vancomycin HCl (Vancocin) 250 ml @ 125 mls/hr Q8H IVPB Last administered on 09:56; Admin Dose 125 MLS/HR; Start 08/30/16 at 02:00; Stop 09/01/16 at 14 :00 Naproxen (Naprosyn) 500 mg BID PRN PO PAIN LEVEL 7-10; Start 08/30/16 at 12:00 Clarithromycin (Biaxin) 500 mg BID PO Last administered on 09/01/16 08:53; Admin Dose 500 MG; Start 08/30/16 at 21:00; Stop 09/09/16 at 20:59 IV Flush 10 ml 10 ml PRN PRN IV IV PROTOCOL; Start 08/31/16 at 12:30 Vancomycin HCl/ Sodium Chloride (Vancocin/NS) 150 ml @ 75 mls/hr Q8H IVPB ; Start 09/01/16 at 18:00 MADELINE LEAL MD Sep 01, 2016 12:23
[2016-09-01] MEDS: ACETAMINOPHEN 325 MG TAB PO PRN (12:58)
--- NOTE | 2016-09-01 13:08 | CONS ---
Date/Time of Note Date/Time of Note DATE: 09/01/16 TIME: 12:49 Assessment/Plan Assessment/Plan Chief Complaint/Hosp Course ID PROGRESS NOTE ABX DAY = > Vanco IV + Rifampin + Cipro Eye GTT 24H INTERVAL SUMMARY = * A/A/O sitting up in chair near window w/left lower orbital edema, no fevers, he is not sure he is getting better; however he pulls out cell phone photos which clearly demonstrate much more pronounced left orbital edema upper and lower -- he also tells me he had fevers on admission which have resolved. Reports mild headaches that resolve w/supplemental O2 * Micro: Bld cx (+) Organism 1 METHICILLIN RESISTANT S.AUREUS * Indwelling: PICC line PHYSICAL EXAMINATION: GENERAL:40 yo M A/A/O sitting up in chair, ambulatory in room, VSS, NAD HEENT: Left lower orbital edema NECK: Trach midline, full ROM CHEST: Equal chest rise bilaterally, without dyspnea on observation HEART: Pulse RRR ABDOMEN: Soft EXTREMITIES: Warm, moves all extremities, ambulatory ID ASSESSMENT: 40 yo M admitted with: 1. Persistent MRSA bacteremia likely 2 to #2, rule out other etiologies 2. Left periorbital/facial cellulitis * CT 08/25/16: Left preseptal and periorbital soft tissue swelling extending along the left nasolacrimal ridge is consistent with cellulitis without evidence of abscess and no extension into the intraconal space. 3. Chronic sinus disease 4. Bipolar disorder (-)MRSA Nares Screen INVASIVES: PICC ABX ALLERGIES: NKDA CURRENT ABX: ABX DAY # Vanco IV + Rifampin ID RECOMMENDATIONS: 1. Continue Vanco IV + Rifampin 2. DC Cipro eye Gtt -> Pharmacy to assist dose Vanco eye Gtt 3. Swab nares for MRSA and treat w/Bacitracin if (+) 4. Warm compress to left eye minimum TID for 30 minutes, longer if tolerated. 5. Per notes: MOLLY pending TU 6. Repeat BCx ordered . Problems: Consultation Date/Type/Reason Admit Date/Time Aug 26, 2016 at 03:14 Initial Consult Date 08/31/16 Type of Consultation: ID Referring Provider: MADELINE LEAL MD Exam/Review of Systems Vital Signs Vitals Vital Signs Date Time Temp Pulse Resp B/P Pulse Ox O2 Delivery O2 Flow Rate FiO2 09/01/16 07:35 98.7 76 20 136/82 97 08/31/16 16:22 Room Air Intake and Output 08/31/16 08/31/16 09/01/16 15:00 23:00 07:00 Intake Total 250 ml 1850 ml 1650 ml Balance 250 ml 1850 ml 1650 ml Results Result Diagram: 08/29/16 0440 08/31/16 0415 Results 24 hrs Laboratory Tests Test 09/01/16 00:55 Vancomycin Level Trough 15.5 Medications Medications Current Medications Ondansetron HCl (Zofran Inj) 4 mg Q6H PRN IV NAUSEA AND/OR VOMITING Last administered on 08/27/16 23:36; Admin Dose 4 MG; Start 08/26/16 at 07:30 Acetaminophen (Tylenol Tab) 650 mg Q6H PRN PO PAIN LEVEL 1-3 OR FEVER Last administered on 08/31/16 16:28; Admin Dose 650 MG; Start 08/26/16 at 07:30 Morphine Sulfate (morphine) 2 mg Q4H PRN IV SEVERE PAIN LEVEL 7-10 Last administered on 08/27/16 23:36; Admin Dose 2 MG; Start 08/26/16 at 07:30 Docusate Sodium (Colace) 100 mg Q12 PRN PO CONSTIPATION; Start 08/26/16 at 07: 30 Zolpidem Tartrate (Ambien) 5 mg QHS PRN PO SLEEP Last administered on 22:17; Admin Dose 5 MG; Start 08/26/16 at 07:30 Ciprofloxacin HCl (Ciloxan 0.3% Oph) 2 drop BID BOTH EYES Last administered on 09/01/16 08:53; Admin Dose 2 DROP; Start 08/26/16 at 21:00 Eye Lubricant (Artificial Tears Oph) 2 drop QID BOTH EYES Last administered on 09/01/16 08:53; Admin Dose 2 DROP; Start 08/27/16 at 10:30 Acetaminophen/ Hydrocodone Bitart ([place] (5/325)) 1 tab Q4H PRN PO MODERATE PAIN LEVEL 4-6 Last administered on 09/01/16 09:55; Admin Dose 1 TAB; Start at 12:20 Carbamide Peroxide (Debrox Otic) 3 drop BID BOTH EARS Last administered on 08:53; Admin Dose 3 DROP; Start 08/28/16 at 13:30 Rifampin 600 mg 600 mg DAILY PO Last administered on 09/01/16 08:53; Admin Dose 600 MG; Start 08/28/16 at 13:00 Vancomycin HCl (Vancocin) 250 ml @ 125 mls/hr Q8H IVPB Last administered on 09:56; Admin Dose 125 MLS/HR; Start 08/30/16 at 02:00; Stop 09/01/16 at 14 :00 Naproxen (Naprosyn) 500 mg BID PRN PO PAIN LEVEL 7-10; Start 08/30/16 at 12:00 Clarithromycin (Biaxin) 500 mg BID PO Last administered on 09/01/16 08:53; Admin Dose 500 MG; Start 08/30/16 at 21:00; Stop 09/09/16 at 20:59 IV Flush 10 ml 10 ml PRN PRN IV IV PROTOCOL; Start 08/31/16 at 12:30 Vancomycin HCl/ Sodium Chloride (Vancocin/NS) 150 ml @ 75 mls/hr Q8H IVPB ; Start 09/01/16 at 18:00 ELVIA LOVELL NP Sep 01, 2016 12:59
--- NOTE | 2016-09-01 16:06 | CONS ---
Date/Time of Note Date/Time of Note DATE: 09/01/16 TIME: 16:04 Assessment/Plan Assessment/Plan Additional Assessment/Plan 1. Bacteremia-persistent MRSA - plan for MOLLY next week with DR. Naidu 2.periorbital celluitis - rx with anti-bx 3.bipolar d/o - on meds 4. Abn ECG - no CP now - con't med Rx as noted Consultation Date/Type/Reason Admit Date/Time Aug 26, 2016 at 03:14 Initial Consult Date 08/31/16 Type of Consultation: ID Referring Provider: MADELINE LEAL MD 24 HR Interval Summary Free Text/Dictation NO acute change - MOLLY planned for next week with DR. Naidu ROS: No fever, no chills, no nausea, no vomiting, no diarrhea/constipation No recent weight changes No chest pain, no PND, no orthopnea No dizziness, blurred vision No thirst, no heat or cold intolerance Exam/Review of Systems Vital Signs Vitals Vital Signs Date Time Temp Pulse Resp B/P Pulse Ox O2 Delivery O2 Flow Rate FiO2 09/01/16 07:35 98.7 76 20 136/82 97 08/31/16 16:22 Room Air Intake and Output 08/31/16 08/31/16 09/01/16 15:00 23:00 07:00 Intake Total 250 ml 1850 ml 1650 ml Balance 250 ml 1850 ml 1650 ml Exam General: WN/WD/NAD, AOx 3 HEENT: Unicetric/atraumatic/EOMI - cellulitis NECK: JVD elevated, no thyromegaly Lymph: no lymphadenopathy HEART: regular with no S3, II/ systolic murmur at apex LUNGS: Coarse sounds ABD: soft, NT, ND, +BS : Intact Neuro: non focal SKIN: chronic changes EXT: trace edema Results Result Diagram: 08/29/16 0440 08/31/16 0415 Results 24 hrs Laboratory Tests Test 09/01/16 00:55 Vancomycin Level Trough 15.5 Medications Medications Current Medications Ondansetron HCl (Zofran Inj) 4 mg Q6H PRN IV NAUSEA AND/OR VOMITING Last administered on 08/27/16t 23:36; Admin Dose 4 MG; Start 08/26/16 at 07:30 Acetaminophen (Tylenol Tab) 650 mg Q6H PRN PO PAIN LEVEL 1-3 OR FEVER Last administered on 09/01/16 12:58; Admin Dose 650 MG; Start 08/26/16 at 07:30 Morphine Sulfate (morphine) 2 mg Q4H PRN IV SEVERE PAIN LEVEL 7-10 Last administered on 08/27/16 23:36; Admin Dose 2 MG; Start 08/26/16 at 07:30 Docusate Sodium (Colace) 100 mg Q12 PRN PO CONSTIPATION; Start 08/26/16 at 07: 30 Zolpidem Tartrate (Ambien) 5 mg QHS PRN PO SLEEP Last administered on 22:17; Admin Dose 5 MG; Start 08/26/16 at 07:30 Eye Lubricant (Artificial Tears Oph) 2 drop QID BOTH EYES Last administered on 09/01/16 12:51; Admin Dose 2 DROP; Start 08/27/16 at 10:30 Acetaminophen/ Hydrocodone Bitart ([place] (5/325)) 1 tab Q4H PRN PO MODERATE PAIN LEVEL 4-6 Last administered on 09/01/16 14:53; Admin Dose 1 TAB; Start at 12:20 Carbamide Peroxide (Debrox Otic) 3 drop BID BOTH EARS Last administered on 08:53; Admin Dose 3 DROP; Start 08/28/16 at 13:30 Rifampin (Rifampin) 600 mg DAILY PO Last administered on 09/01/16 08:53; Admin Dose 600 MG; Start 08/28/16 at 13:00 Naproxen (Naprosyn) 500 mg BID PRN PO PAIN LEVEL 7-10; Start 08/30/16 at 12:00 Clarithromycin (Biaxin) 500 mg BID PO Last administered on 09/01/16 08:53; Admin Dose 500 MG; Start 08/30/16 at 21:00; Stop 09/09/16 at 20:59 IV Flush 10 ml 10 ml PRN PRN IV IV PROTOCOL; Start 08/31/16 at 12:30 Vancomycin HCl/ Sodium Chloride (Vancocin/NS) 150 ml @ 75 mls/hr Q8H IVPB ; Start 09/01/16 at 18:00 Vancomycin HCl (Vancomycin/ Hypromellose Oph) 1 drop QID LEFT EYE ; Start at 17:00 TAMAR KIRK MD Sep 01, 2016 16:06
[2016-09-01] MEDS: HYPROMELLOSE LEFT EYE SCH ×2 (16:50→21:34)
[2016-09-01] MEDS: VANCOMYCIN LEFT EYE SCH ×2 (16:50→21:34)
[2016-09-01] MEDS: VANCOMYCIN 750 MG in SOD CHLORIDE 0.9% 150 ML IVPB SCH (18:00)
[2016-09-01 19:49] VITALS: BP 142/81; RESP 20; RESP 74
[2016-09-01] MEDS: ZOLPIDEM 5 MG TAB PO PRN (23:17)
[2016-09-02] MEDS: ACETAMINOPHEN 325 MG TAB PO PRN (02:06)
[2016-09-02] MEDS: VANCOMYCIN 750 MG in SOD CHLORIDE 0.9% 150 ML IVPB SCH ×3 (02:06→17:42)
[2016-09-02] MEDS: HYDROCODONE/APAP (5/325) TAB PO PRN ×5 (03:09→20:52)
[2016-09-02 05:18] LABS: ABNORMAL IP MESSAGE 1; BASOPHIL # 0.1 10^3/ul (0.0-0.1); BASOPHILS % 0.3 % (0.0-2.0); EOSINOPHILS # 0.4 10^3/ul (0.0-0.5); EOSINOPHILS % 2.4 % (0.0-7.0); HEMATOCRIT 37.5 % (42.0-52.0); HEMOGLOBIN 12.4 g/dl (14.0-18.0); LYMPHOCYTES # 2.9 10^3/ul (0.8-2.9); LYMPHOCYTES % 17.9 % (15.0-51.0); MEAN CORPUSCULAR HEMOGLOBIN 29.3 pg (29.0-33.0); MEAN CORPUSCULAR HGB CONC 33.1 g/dl (32.0-37.0); MEAN CORPUSCULAR VOLUME 88.7 fl (82.0-101.0); MEAN PLATELET VOLUME 10.1 fl (7.4-10.4); MONOCYTES % 6.4 % (0.0-11.0); NEUTROPHIL # 10.9 10^3/ul (1.6-7.5); NEUTROPHILS % 67.7 % (39.0-77.0); PLATELET COUNT 630 10^3/UL (140-415); RED BLOOD COUNT 4.23 10^6/ul (4.70-6.10); WHITE BLOOD COUNT 16.1 10^3/ul (4.8-10.8)
[2016-09-02 05:42] LABS: CREATININE 0.72 mg/dl (0.61-1.24); MAGNESIUM 2.2 mg/dl (1.7-2.5); POTASSIUM 4.3 mmol/L (3.5-5.1)
[2016-09-02 07:12] LABS: ADD SCAN DIFF NO
[2016-09-02 07:22] VITALS: BP 124/68; RESP 20
[2016-09-02] MEDS: HYPROMELLOSE LEFT EYE SCH ×4 (08:49→20:39)
[2016-09-02] MEDS: VANCOMYCIN LEFT EYE SCH ×4 (08:49→20:39)
[2016-09-02] MEDS: CLARITHROMYCIN 500 MG TAB PO SCH ×2 (08:50→20:39)
[2016-09-02] MEDS: RIFAMPIN 300 MG CAP PO SCH (08:50)
[2016-09-02] MEDS: ARTIFICIAL TEARS 15 ML OPH BOTH EYES SCH ×4 (09:39→20:44)
[2016-09-02] MEDS: CARBAMIDE PEROXIDE 6.5% 15ML OTIC BOTH EARS SCH ×2 (09:40→20:39)
--- NOTE | 2016-09-02 12:13 | PN ---
Date/Time of Note Date/Time of Note DATE: 09/02/16 TIME: 12:09 Assessment/Plan VTE Prophylaxis VTE Prophylaxis Intervention: SCD's Lines/Catheters IV Catheter Type (from Nrsg): PICC Line Central line still needed: Yes Urinary Cath still in place: No Assessment/Plan Assessment/Plan 40 yo M admitted for L eye pain, found to have periorbital cellulitis and MRSA bacteremia. + surveillance blood cultures from after treatment was already started. #MRSA bacteremia and periorbital cellulitis; TTE without evidence of IE HOWEVER surveillance cultures + -check MOLLY and tagged WBC scan if MOLLY negative -cont IV vanc -PICC line placed today -no orbital involvement per optho -cont pain control #AOM: abx as per ENT general diet dispo pending MOLLY (likely won't be till Saturday) Subjective 24 Hr Interval Summary Free Text/Dictation L periorbital erythema improving Exam/Review of Systems Vital Signs Vitals Vital Signs Date Time Temp Pulse Resp B/P Pulse Ox O2 Delivery O2 Flow Rate FiO2 09/02/16 07:22 98.9 69 20 124/68 96 08/31/16 16:22 Room Air Intake and Output 09/01/16 09/01/16 09/02/16 15:00 23:00 07:00 Intake Total 250 ml 1600 ml 400 ml Balance 250 ml 1600 ml 400 ml Exam nad no mrg lungs clear abd soft no rashes Results Result Diagram: 09/02/16 0431 09/02/16 0431 Results 24 hrs Laboratory Tests Test 09/02/16 04:31 White Blood Count 16.1 #H Red Blood Count 4.23 L Hemoglobin 12.4 L Hematocrit 37.5 L Mean Corpuscular Volume 88.7 Mean Corpuscular Hemoglobin 29.3 Mean Corpuscular Hemoglobin Concent 33.1 Red Cell Distribution Width 15.0 H Platelet Count 630 #H Mean Platelet Volume 10.1 Neutrophils % 67.7 Lymphocytes % 17.9 Monocytes % 6.4 Eosinophils % 2.4 Basophils % 0.3 Nucleated Red Blood Cells % 0.0 Neutrophils # 10.9 H Lymphocytes # 2.9 Monocytes # 1.0 H Eosinophils # 0.4 Basophils # 0.1 Nucleated Red Blood Cells # 0.0 Sodium Level 140 Potassium Level 4.3 Chloride Level 98 Carbon Dioxide Level 29 Anion Gap 17 H Blood Urea Nitrogen 7 Creatinine 0.72 Glucose Level 126 Calcium Level 9.0 Magnesium Level 2.2 Medications Medications Current Medications Ondansetron HCl (Zofran Inj) 4 mg Q6H PRN IV NAUSEA AND/OR VOMITING Last administered on 08/27/16 23:36; Admin Dose 4 MG; Start 08/26/16 at 07:30 Acetaminophen (Tylenol Tab) 650 mg Q6H PRN PO PAIN LEVEL 1-3 OR FEVER Last administered on 09/02/16 02:06; Admin Dose 650 MG; Start 08/26/16 at 07:30 Morphine Sulfate (morphine) 2 mg Q4H PRN IV SEVERE PAIN LEVEL 7-10 Last administered on 08/27/16 23:36; Admin Dose 2 MG; Start 08/26/16 at 07:30 Docusate Sodium (Colace) 100 mg Q12 PRN PO CONSTIPATION; Start 08/26/16 at 07: 30 Zolpidem Tartrate (Ambien) 5 mg QHS PRN PO SLEEP Last administered on 09/01/16 23:17; Admin Dose 5 MG; Start 08/26/16 at 07:30 Eye Lubricant (Artificial Tears Oph) 2 drop QID BOTH EYES Last administered on 09/02/16 09:39; Admin Dose 2 DROP; Start 08/27/16 at 10:30 Acetaminophen/ Hydrocodone Bitart ([place] (5/325)) 1 tab Q4H PRN PO MODERATE PAIN LEVEL 4-6 Last administered on 09/02/16 09:01; Admin Dose 1 TAB; Start at 12:20 Carbamide Peroxide (Debrox Otic) 3 drop BID BOTH EARS Last administered on 09:40; Admin Dose 3 DROP; Start 08/28/16 at 13:30 Rifampin (Rifampin) 600 mg DAILY PO Last administered on 09/02/16 08:50; Admin Dose 600 MG; Start 08/28/16 at 13:00 Naproxen (Naprosyn) 500 mg BID PRN PO PAIN LEVEL 7-10; Start 08/30/16 at 12:00 Clarithromycin (Biaxin) 500 mg BID PO Last administered on 09/02/16 08:50; Admin Dose 500 MG; Start 08/30/16 at 21:00; Stop 09/09/16 at 20:59 IV Flush 10 ml 10 ml PRN PRN IV IV PROTOCOL Last administered on 09/02/16 02:36 ; Admin Dose 10 ML; Start 08/31/16 at 12:30 Vancomycin HCl/ Sodium Chloride (Vancocin/NS) 150 ml @ 75 mls/hr Q8H IVPB Last administered on 09/02/16 10:15; Admin Dose 75 MLS/HR; Start 09/01/16 at 18: 00 Vancomycin HCl (Vancomycin/ Hypromellose Oph) 1 drop QID LEFT EYE Last administered on 09/02/16 08:49; Admin Dose 1 DROP; Start 09/01/16 at 17:00 MADELINE LEAL MD Sep 02, 2016 12:13
--- NOTE | 2016-09-02 13:38 | CONS ---
Date/Time of Note Date/Time of Note DATE: 09/02/16 TIME: 13:37 Assessment/Plan Assessment/Plan Additional Assessment/Plan Awaiting MOLLY with Dr. Naidu next week Consultation Date/Type/Reason Admit Date/Time Aug 26, 2016 at 03:14 Initial Consult Date 08/31/16 Type of Consultation: ID Referring Provider: MADELINE LEAL MD Exam/Review of Systems Vital Signs Vitals Vital Signs Date Time Temp Pulse Resp B/P Pulse Ox O2 Delivery O2 Flow Rate FiO2 09/02/16 07:22 98.9 69 20 124/68 96 08/31/16 16:22 Room Air Intake and Output 09/01/16 09/01/16 09/02/16 14:59 22:59 06:59 Intake Total 250 ml 1600 ml 400 ml Balance 250 ml 1600 ml 400 ml Results Result Diagram: 09/02/16 0431 09/02/16 0431 Results 24 hrs Laboratory Tests Test 09/02/16 04:31 White Blood Count 16.1 #H Red Blood Count 4.23 L Hemoglobin 12.4 L Hematocrit 37.5 L Mean Corpuscular Volume 88.7 Mean Corpuscular Hemoglobin 29.3 Mean Corpuscular Hemoglobin Concent 33.1 Red Cell Distribution Width 15.0 H Platelet Count 630 #H Mean Platelet Volume 10.1 Neutrophils % 67.7 Lymphocytes % 17.9 Monocytes % 6.4 Eosinophils % 2.4 Basophils % 0.3 Nucleated Red Blood Cells % 0.0 Neutrophils # 10.9 H Lymphocytes # 2.9 Monocytes # 1.0 H Eosinophils # 0.4 Basophils # 0.1 Nucleated Red Blood Cells # 0.0 Sodium Level 140 Potassium Level 4.3 Chloride Level 98 Carbon Dioxide Level 29 Anion Gap 17 H Blood Urea Nitrogen 7 Creatinine 0.72 Glucose Level 126 Calcium Level 9.0 Magnesium Level 2.2 Medications Medications Current Medications Ondansetron HCl (Zofran Inj) 4 mg Q6H PRN IV NAUSEA AND/OR VOMITING Last administered on 08/27/16 23:36; Admin Dose 4 MG; Start 08/26/16 at 07:30 Acetaminophen (Tylenol Tab) 650 mg Q6H PRN PO PAIN LEVEL 1-3 OR FEVER Last administered on 09/02/16 02:06; Admin Dose 650 MG; Start 08/26/16 at 07:30 Morphine Sulfate (morphine) 2 mg Q4H PRN IV SEVERE PAIN LEVEL 7-10 Last administered on 08/27/16 23:36; Admin Dose 2 MG; Start 08/26/16 at 07:30 Docusate Sodium (Colace) 100 mg Q12 PRN PO CONSTIPATION; Start 08/26/16 at 07: 30 Zolpidem Tartrate (Ambien) 5 mg QHS PRN PO SLEEP Last administered on 09/01/16 23:17; Admin Dose 5 MG; Start 08/26/16 at 07:30 Eye Lubricant (Artificial Tears Oph) 2 drop QID BOTH EYES Last administered on 09/02/16 13:01; Admin Dose 2 DROP; Start 08/27/16 at 10:30 Acetaminophen/ Hydrocodone Bitart ([place] (5/325)) 1 tab Q4H PRN PO MODERATE PAIN LEVEL 4-6 Last administered on 09/02/16 13:02; Admin Dose 1 TAB; Start at 12:20 Carbamide Peroxide (Debrox Otic) 3 drop BID BOTH EARS Last administered on 09:40; Admin Dose 3 DROP; Start 08/28/16 at 13:30 Rifampin (Rifampin) 600 mg DAILY PO Last administered on 09/02/16 08:50; Admin Dose 600 MG; Start 08/28/16 at 13:00 Naproxen (Naprosyn) 500 mg BID PRN PO PAIN LEVEL 7-10; Start 08/30/16 at 12:00 Clarithromycin (Biaxin) 500 mg BID PO Last administered on 09/02/16 08:50; Admin Dose 500 MG; Start 08/30/16 at 21:00; Stop 09/09/16 at 20:59 IV Flush 10 ml 10 ml PRN PRN IV IV PROTOCOL Last administered on 09/02/16 02:36 ; Admin Dose 10 ML; Start 08/31/16 at 12:30 Vancomycin HCl/ Sodium Chloride (Vancocin/NS) 150 ml @ 75 mls/hr Q8H IVPB Last administered on 09/02/16 10:15; Admin Dose 75 MLS/HR; Start 09/01/16 at 18: 00 Vancomycin HCl (Vancomycin/ Hypromellose Oph) 1 drop QID LEFT EYE Last administered on 7/2/17at 13:05; Admin Dose 1 DROP; Start 09/01/16 at 17:00 TAMAR KIRK MD Sep 02, 2016 13:38
--- NOTE | 2016-09-02 14:43 | CONS ---
Date/Time of Note Date/Time of Note DATE: 09/02/16 TIME: 14:36 Assessment/Plan Assessment/Plan Chief Complaint/Hosp Course ID PROGRESS NOTE ABX DAY = > Vanco IV + Rifampin + Vanco OPTH GTT s/p Cipro Eye GTT 24H INTERVAL SUMMARY = * A/A/O -> clinically stable with slow improvement * Micro: Bld cx (+) Organism METHICILLIN RESISTANT S.AUREUS * Indwelling: PICC line PHYSICAL EXAMINATION: GENERAL:40 yo M A/A/O sitting up in chair, ambulatory in room, VSS, NAD HEENT: Left lower orbital edema NECK: Trach midline, full ROM CHEST: Equal chest rise bilaterally, without dyspnea on observation HEART: Pulse RRR ABDOMEN: Soft EXTREMITIES: Warm, moves all extremities, ambulatory ID ASSESSMENT: 40 yo M admitted with: 1. Persistent MRSA bacteremia likely 2 to #2, rule out other etiologies 2. Left periorbital/facial cellulitis * CT 08/25/16: Left preseptal and periorbital soft tissue swelling extending along the left nasolacrimal ridge is consistent with cellulitis without evidence of abscess and no extension into the intraconal space. 3. Chronic sinus disease 4. Bipolar disorder w/ anxiety features (-)MRSA Nares Screen INVASIVES: PICC ABX ALLERGIES: NKDA CURRENT ABX: ABX DAY # Vanco IV + Rifampin + Vanco OPTH GTT s/p Cipro ID RECOMMENDATIONS: 1. Continue Vanco IV + Rifampin + Vanco Eye GTT 2. Repeat BCx ordered pending result 3. Swab nares for MRSA and treat w/Bacitracin if (+) => Pending final result 4. Warm compress to left eye minimum TID for 30 minutes, longer if tolerated. 5. Per notes: MOLLY pending TUES . Problems: Consultation Date/Type/Reason Admit Date/Time Aug 26, 2016 at 03:14 Initial Consult Date 08/31/16 Type of Consultation: ID Referring Provider: MADELINE LEAL MD Exam/Review of Systems Vital Signs Vitals Vital Signs Date Time Temp Pulse Resp B/P Pulse Ox O2 Delivery O2 Flow Rate FiO2 09/02/16 07:22 98.9 69 20 124/68 96 08/31/16 16:22 Room Air Intake and Output 09/01/16 09/01/16 09/02/16 15:00 23:00 07:00 Intake Total 250 ml 1600 ml 400 ml Balance 250 ml 1600 ml 400 ml Results Result Diagram: 09/02/16 0431 09/02/16 0431 Results 24 hrs Laboratory Tests Test 09/02/16 04:31 White Blood Count 16.1 #H Red Blood Count 4.23 L Hemoglobin 12.4 L Hematocrit 37.5 L Mean Corpuscular Volume 88.7 Mean Corpuscular Hemoglobin 29.3 Mean Corpuscular Hemoglobin Concent 33.1 Red Cell Distribution Width 15.0 H Platelet Count 630 #H Mean Platelet Volume 10.1 Neutrophils % 67.7 Lymphocytes % 17.9 Monocytes % 6.4 Eosinophils % 2.4 Basophils % 0.3 Nucleated Red Blood Cells % 0.0 Neutrophils # 10.9 H Lymphocytes # 2.9 Monocytes # 1.0 H Eosinophils # 0.4 Basophils # 0.1 Nucleated Red Blood Cells # 0.0 Sodium Level 140 Potassium Level 4.3 Chloride Level 98 Carbon Dioxide Level 29 Anion Gap 17 H Blood Urea Nitrogen 7 Creatinine 0.72 Glucose Level 126 Calcium Level 9.0 Magnesium Level 2.2 Medications Medications Current Medications Ondansetron HCl (Zofran Inj) 4 mg Q6H PRN IV NAUSEA AND/OR VOMITING Last administered on 08/27/16 23:36; Admin Dose 4 MG; Start 08/26/16 at 07:30 Acetaminophen (Tylenol Tab) 650 mg Q6H PRN PO PAIN LEVEL 1-3 OR FEVER Last administered on 09/02/16 02:06; Admin Dose 650 MG; Start 08/26/16 at 07:30 Morphine Sulfate (morphine) 2 mg Q4H PRN IV SEVERE PAIN LEVEL 7-10 Last administered on 08/27/16 23:36; Admin Dose 2 MG; Start 08/26/16 at 07:30 Docusate Sodium (Colace) 100 mg Q12 PRN PO CONSTIPATION; Start 08/26/16 at 07: 30 Zolpidem Tartrate (Ambien) 5 mg QHS PRN PO SLEEP Last administered on 09/01/16 23:17; Admin Dose 5 MG; Start 08/26/16 at 07:30 Eye Lubricant (Artificial Tears Oph) 2 drop QID BOTH EYES Last administered on 09/02/16 13:01; Admin Dose 2 DROP; Start 08/27/16 at 10:30 Acetaminophen/ Hydrocodone Bitart ([place] (5/325)) 1 tab Q4H PRN PO MODERATE PAIN LEVEL 4-6 Last administered on 09/02/16 13:02; Admin Dose 1 TAB; Start at 12:20 Carbamide Peroxide (Debrox Otic) 3 drop BID BOTH EARS Last administered on 09:40; Admin Dose 3 DROP; Start 08/28/16 at 13:30 Rifampin (Rifampin) 600 mg DAILY PO Last administered on 09/02/16 08:50; Admin Dose 600 MG; Start 08/28/16 at 13:00 Naproxen (Naprosyn) 500 mg BID PRN PO PAIN LEVEL 7-10; Start 08/30/16 at 12:00 Clarithromycin (Biaxin) 500 mg BID PO Last administered on 09/02/16 08:50; Admin Dose 500 MG; Start 08/30/16 at 21:00; Stop 09/09/16 at 20:59 IV Flush 10 ml 10 ml PRN PRN IV IV PROTOCOL Last administered on 09/02/16 02:36 ; Admin Dose 10 ML; Start 08/31/16 at 12:30 Vancomycin HCl/ Sodium Chloride (Vancocin/NS) 150 ml @ 75 mls/hr Q8H IVPB Last administered on 09/02/16 10:15; Admin Dose 75 MLS/HR; Start 09/01/16 at 18: 00 Vancomycin HCl (Vancomycin/ Hypromellose Oph) 1 drop QID LEFT EYE Last administered on 09/02/16 13:05; Admin Dose 1 DROP; Start 09/01/16 at 17:00 ELVIA LOVELL NP Sep 02, 2016 14:43
[2016-09-02 19:36] VITALS: BP 138/91; RESP 18
[2016-09-02] MEDS: ZOLPIDEM 5 MG TAB PO PRN (22:06)
[2016-09-03] MEDS: HYDROCODONE/APAP (5/325) TAB PO PRN ×6 (01:21→21:21)
[2016-09-03] MEDS: VANCOMYCIN 750 MG in SOD CHLORIDE 0.9% 150 ML IVPB SCH ×3 (02:08→17:21)
[2016-09-03 05:45] LABS: BASOPHILS % 0.1 % (0.0-2.0); EOSINOPHILS # 0.4 10^3/ul (0.0-0.5); EOSINOPHILS % 2.7 % (0.0-7.0); HEMATOCRIT 38.2 % (42.0-52.0); LYMPHOCYTES # 2.8 10^3/ul (0.8-2.9); LYMPHOCYTES % 19.8 % (15.0-51.0); MEAN CORPUSCULAR HEMOGLOBIN 28.2 pg (29.0-33.0); MEAN CORPUSCULAR HGB CONC 31.4 g/dl (32.0-37.0); MEAN CORPUSCULAR VOLUME 89.9 fl (82.0-101.0); MONOCYTE # 0.9 10^3/ul (0.3-0.9); MONOCYTES % 6.5 % (0.0-11.0); NEUTROPHIL # 9.4 10^3/ul (1.6-7.5); NEUTROPHILS % 66.7 % (39.0-77.0); PLATELET COUNT 625 10^3/UL (140-415); RED BLOOD COUNT 4.25 10^6/ul (4.70-6.10); RED CELL DISTRIBUTION WIDTH 15.3 % (11.5-14.5); WHITE BLOOD COUNT 14.1 10^3/ul (4.8-10.8)
[2016-09-03 05:48] LABS: ADD SCAN DIFF NO
[2016-09-03 06:13] LABS: CALCIUM 8.9 mg/dl (8.4-10.2); CREATININE 0.87 mg/dl (0.61-1.24); MAGNESIUM 2.1 mg/dl (1.7-2.5); POTASSIUM 4.3 mmol/L (3.5-5.1)
[2016-09-03 08:47] VITALS: BP 131/88; RESP 18
[2016-09-03] MEDS: CARBAMIDE PEROXIDE 6.5% 15ML OTIC BOTH EARS SCH ×2 (09:18→21:19)
[2016-09-03] MEDS: RIFAMPIN 300 MG CAP PO SCH (09:20)
[2016-09-03] MEDS: CLARITHROMYCIN 500 MG TAB PO SCH ×2 (09:21→21:20)
[2016-09-03] MEDS: HYPROMELLOSE LEFT EYE SCH ×4 (09:21→21:19)
[2016-09-03] MEDS: VANCOMYCIN LEFT EYE SCH ×4 (09:21→21:19)
[2016-09-03] MEDS: ARTIFICIAL TEARS 15 ML OPH BOTH EYES SCH ×4 (10:11→22:26)
--- NOTE | 2016-09-03 10:47 | PN ---
Date/Time of Note Date/Time of Note DATE: 09/03/16 TIME: 10:45 Assessment/Plan VTE Prophylaxis VTE Prophylaxis Intervention: SCD's Lines/Catheters IV Catheter Type (from Nrsg): PICC Line Central line still needed: Yes Urinary Cath still in place: No Assessment/Plan Assessment/Plan 40 yo M admitted for L eye pain, found to have periorbital cellulitis and MRSA bacteremia. + surveillance blood cultures from after treatment was already started. #MRSA bacteremia and periorbital cellulitis; TTE without evidence of IE HOWEVER surveillance cultures + -check MOLLY and tagged WBC scan if MOLLY negative -cont IV vanc -PICC line in place -no orbital involvement per optho -cont pain control #AOM: abx as per ENT general diet dispo pending MOLLY (might happen today). Will need to clarify length of therapy with ID prior to discharge CM following for outpatient IV abx Subjective 24 Hr Interval Summary Free Text/Dictation anxious to complete workup so he can go home Exam/Review of Systems Vital Signs Vitals Vital Signs Date Time Temp Pulse Resp B/P Pulse Ox O2 Delivery O2 Flow Rate FiO2 09/03/16 08:47 98.7 76 18 131/88 95 08/31/16 16:22 Room Air Intake and Output 09/02/16 09/02/16 09/03/16 15:00 23:00 07:00 Intake Total 150 ml 1750 ml 300 ml Balance 150 ml 1750 ml 300 ml Exam nad L eye lesion improving no mrg abd soft no rashes latest blood cultures still neg Results Result Diagram: 09/03/16 0440 09/03/16 0440 Results 24 hrs Laboratory Tests Test 09/03/16 04:40 White Blood Count 14.1 H Red Blood Count 4.25 L Hemoglobin 12.0 L Hematocrit 38.2 L Mean Corpuscular Volume 89.9 Mean Corpuscular Hemoglobin 28.2 L Mean Corpuscular Hemoglobin Concent 31.4 L Red Cell Distribution Width 15.3 H Platelet Count 625 H Mean Platelet Volume 10.0 Neutrophils % 66.7 Lymphocytes % 19.8 Monocytes % 6.5 Eosinophils % 2.7 Basophils % 0.1 Nucleated Red Blood Cells % 0.0 Neutrophils # 9.4 H Lymphocytes # 2.8 Monocytes # 0.9 Eosinophils # 0.4 Basophils # 0.0 Nucleated Red Blood Cells # 0.0 Sodium Level 137 Potassium Level 4.3 Chloride Level 99 Carbon Dioxide Level 28 Anion Gap 14 Blood Urea Nitrogen 8 Creatinine 0.87 Glucose Level 101 Calcium Level 8.9 Magnesium Level 2.1 Medications Medications Current Medications Ondansetron HCl (Zofran Inj) 4 mg Q6H PRN IV NAUSEA AND/OR VOMITING Last administered on 08/27/16 23:36; Admin Dose 4 MG; Start 08/26/16 at 07:30 Acetaminophen (Tylenol Tab) 650 mg Q6H PRN PO PAIN LEVEL 1-3 OR FEVER Last administered on 09/02/16 02:06; Admin Dose 650 MG; Start 08/26/16 at 07:30 Morphine Sulfate (morphine) 2 mg Q4H PRN IV SEVERE PAIN LEVEL 7-10 Last administered on 08/27/16 23:36; Admin Dose 2 MG; Start 08/26/16 at 07:30 Docusate Sodium (Colace) 100 mg Q12 PRN PO CONSTIPATION; Start 08/26/16 at 07: 30 Zolpidem Tartrate (Ambien) 5 mg QHS PRN PO SLEEP Last administered on 09/02/16 22:06; Admin Dose 5 MG; Start 08/26/16 at 07:30 Eye Lubricant (Artificial Tears Oph) 2 drop QID BOTH EYES Last administered on 09/03/16 10:11; Admin Dose 2 DROP; Start 08/27/16 at 10:30 Acetaminophen/ Hydrocodone Bitart ([place] (5/325)) 1 tab Q4H PRN PO MODERATE PAIN LEVEL 4-6 Last administered on 09/03/16 09:27; Admin Dose 1 TAB; Start at 12:20 Carbamide Peroxide (Debrox Otic) 3 drop BID BOTH EARS Last administered on 09:18; Admin Dose 3 DROP; Start 08/28/16 at 13:30 Rifampin (Rifampin) 600 mg DAILY PO Last administered on 09/03/16 09:20; Admin Dose 600 MG; Start 08/28/16 at 13:00 Naproxen (Naprosyn) 500 mg BID PRN PO PAIN LEVEL 7-10; Start 08/30/16 at 12:00 Clarithromycin (Biaxin) 500 mg BID PO Last administered on 09/03/16 09:21; Admin Dose 500 MG; Start 08/30/16 at 21:00; Stop 09/09/16 at 20:59 IV Flush 10 ml 10 ml PRN PRN IV IV PROTOCOL Last administered on 09/02/16 02:36 ; Admin Dose 10 ML; Start 08/31/16 at 12:30 Vancomycin HCl/ Sodium Chloride (Vancocin/NS) 150 ml @ 75 mls/hr Q8H IVPB Last administered on 09/03/16 10:12; Admin Dose 75 MLS/HR; Start 09/01/16 at 18: 00 Vancomycin HCl (Vancomycin/ Hypromellose Oph) 1 drop QID LEFT EYE Last administered on 09/03/16 09:21; Admin Dose 1 DROP; Start 09/01/16 at 17:00 MADELINE LEAL MD Sep 03, 2016 10:47
--- NOTE | 2016-09-03 11:59 | CONS ---
Date/Time of Note Date/Time of Note DATE: 09/03/16 TIME: 11:58 Assessment/Plan Assessment/Plan Additional Assessment/Plan MOLLY with DR. Naidu to follow this week Consultation Date/Type/Reason Admit Date/Time Aug 26, 2016 at 03:14 Initial Consult Date 08/31/16 Type of Consultation: ID Referring Provider: MADELINE LEAL MD Exam/Review of Systems Vital Signs Vitals Vital Signs Date Time Temp Pulse Resp B/P Pulse Ox O2 Delivery O2 Flow Rate FiO2 09/03/16 08:47 98.7 76 18 131/88 95 08/31/16 16:22 Room Air Intake and Output 09/02/16 09/02/16 09/03/16 15:00 23:00 07:00 Intake Total 150 ml 1750 ml 300 ml Balance 150 ml 1750 ml 300 ml Results Result Diagram: 09/03/16 0440 09/03/16 0440 Results 24 hrs Laboratory Tests Test 09/03/16 04:40 White Blood Count 14.1 H Red Blood Count 4.25 L Hemoglobin 12.0 L Hematocrit 38.2 L Mean Corpuscular Volume 89.9 Mean Corpuscular Hemoglobin 28.2 L Mean Corpuscular Hemoglobin Concent 31.4 L Red Cell Distribution Width 15.3 H Platelet Count 625 H Mean Platelet Volume 10.0 Neutrophils % 66.7 Lymphocytes % 19.8 Monocytes % 6.5 Eosinophils % 2.7 Basophils % 0.1 Nucleated Red Blood Cells % 0.0 Neutrophils # 9.4 H Lymphocytes # 2.8 Monocytes # 0.9 Eosinophils # 0.4 Basophils # 0.0 Nucleated Red Blood Cells # 0.0 Sodium Level 137 Potassium Level 4.3 Chloride Level 99 Carbon Dioxide Level 28 Anion Gap 14 Blood Urea Nitrogen 8 Creatinine 0.87 Glucose Level 101 Calcium Level 8.9 Magnesium Level 2.1 Medications Medications Current Medications Ondansetron HCl (Zofran Inj) 4 mg Q6H PRN IV NAUSEA AND/OR VOMITING Last administered on 08/27/16 23:36; Admin Dose 4 MG; Start 08/26/16 at 07:30 Acetaminophen (Tylenol Tab) 650 mg Q6H PRN PO PAIN LEVEL 1-3 OR FEVER Last administered on 09/02/16 02:06; Admin Dose 650 MG; Start 08/26/16 at 07:30 Morphine Sulfate (morphine) 2 mg Q4H PRN IV SEVERE PAIN LEVEL 7-10 Last administered on 08/27/16 23:36; Admin Dose 2 MG; Start 08/26/16 at 07:30 Docusate Sodium (Colace) 100 mg Q12 PRN PO CONSTIPATION; Start 08/26/16 at 07: 30 Zolpidem Tartrate (Ambien) 5 mg QHS PRN PO SLEEP Last administered on 09/02/16 22:06; Admin Dose 5 MG; Start 08/26/16 at 07:30 Eye Lubricant (Artificial Tears Oph) 2 drop QID BOTH EYES Last administered on 09/03/16 10:11; Admin Dose 2 DROP; Start 08/27/16 at 10:30 Acetaminophen/ Hydrocodone Bitart ([place] (5/325)) 1 tab Q4H PRN PO MODERATE PAIN LEVEL 4-6 Last administered on 09/03/16 09:27; Admin Dose 1 TAB; Start at 12:20 Carbamide Peroxide (Debrox Otic) 3 drop BID BOTH EARS Last administered on 09:18; Admin Dose 3 DROP; Start 08/28/16 at 13:30 Rifampin (Rifampin) 600 mg DAILY PO Last administered on 09/03/16 09:20; Admin Dose 600 MG; Start 08/28/16 at 13:00 Naproxen (Naprosyn) 500 mg BID PRN PO PAIN LEVEL 7-10; Start 08/30/16 at 12:00 Clarithromycin (Biaxin) 500 mg BID PO Last administered on 09/03/16 09:21; Admin Dose 500 MG; Start 08/30/16 at 21:00; Stop 09/09/16 at 20:59 IV Flush 10 ml 10 ml PRN PRN IV IV PROTOCOL Last administered on 09/02/16 02:36 ; Admin Dose 10 ML; Start 08/31/16 at 12:30 Vancomycin HCl/ Sodium Chloride (Vancocin/NS) 150 ml @ 75 mls/hr Q8H IVPB Last administered on 09/03/16 10:12; Admin Dose 75 MLS/HR; Start 09/01/16 at 18: 00 Vancomycin HCl (Vancomycin/ Hypromellose Oph) 1 drop QID LEFT EYE Last administered on 7/3/17at 09:21; Admin Dose 1 DROP; Start 09/01/16 at 17:00 TAMAR KIRK MD Sep 03, 2016 11:59
--- NOTE | 2016-09-03 17:24 | CONS ---
Date/Time of Note Date/Time of Note DATE: 09/03/16 TIME: 17:19 Assessment/Plan Assessment/Plan Chief Complaint/Hosp Course No acute changes, alert, looks comfortable, no fevers Micro: Bld cx + MRSA, repeat blood cultures on September 01 are negative Indwelling: PICC line Abx: Vanco Rifampin Physical examination: Well developed white man, in no distress + left sided periorbital/ facial swelling Neck: supple Chest: Clear to auscultation Abdomen: Soft, + BT Ext: no edema, no cyanosis Assessment: 1. Persistent MRSA bacteremia likely 2 to #2, rule out other etiologies 2. Left periorbital/facial cellulitis 3. Chronic sinus disease 4. Bipolar disorder Plan: Clinically stable, left facial swelling markedly improved, repeat blood cultures negative. Patient was seen by ENT and ophthalmology. Pending MOLLY, if negative will do WBC labeled nuclear scan. Continue on current antimicrobials. Discussed with patient. [facility] staff Problems: Consultation Date/Type/Reason Admit Date/Time Aug 26, 2016 at 03:14 Type of Consultation: ID Referring Provider: MADELINE LEAL MD Exam/Review of Systems Vital Signs Vitals Vital Signs Date Time Temp Pulse Resp B/P Pulse Ox O2 Delivery O2 Flow Rate FiO2 09/03/16 08:47 98.7 76 18 131/88 95 08/31/16 16:22 Room Air Intake and Output 09/02/16 09/02/16 09/03/16 15:00 23:00 07:00 Intake Total 150 ml 1750 ml 300 ml Balance 150 ml 1750 ml 300 ml Results Result Diagram: 09/03/16 0440 09/03/16 0440 Results 24 hrs Laboratory Tests Test 09/03/16 04:40 White Blood Count 14.1 H Red Blood Count 4.25 L Hemoglobin 12.0 L Hematocrit 38.2 L Mean Corpuscular Volume 89.9 Mean Corpuscular Hemoglobin 28.2 L Mean Corpuscular Hemoglobin Concent 31.4 L Red Cell Distribution Width 15.3 H Platelet Count 625 H Mean Platelet Volume 10.0 Neutrophils % 66.7 Lymphocytes % 19.8 Monocytes % 6.5 Eosinophils % 2.7 Basophils % 0.1 Nucleated Red Blood Cells % 0.0 Neutrophils # 9.4 H Lymphocytes # 2.8 Monocytes # 0.9 Eosinophils # 0.4 Basophils # 0.0 Nucleated Red Blood Cells # 0.0 Sodium Level 137 Potassium Level 4.3 Chloride Level 99 Carbon Dioxide Level 28 Anion Gap 14 Blood Urea Nitrogen 8 Creatinine 0.87 Glucose Level 101 Calcium Level 8.9 Magnesium Level 2.1 Medications Medications Current Medications Ondansetron HCl (Zofran Inj) 4 mg Q6H PRN IV NAUSEA AND/OR VOMITING Last administered on 08/27/16 23:36; Admin Dose 4 MG; Start 08/26/16 at 07:30 Acetaminophen (Tylenol Tab) 650 mg Q6H PRN PO PAIN LEVEL 1-3 OR FEVER Last administered on 09/02/16 02:06; Admin Dose 650 MG; Start 08/26/16 at 07:30 Morphine Sulfate (morphine) 2 mg Q4H PRN IV SEVERE PAIN LEVEL 7-10 Last administered on 08/27/16 23:36; Admin Dose 2 MG; Start 08/26/16 at 07:30 Docusate Sodium (Colace) 100 mg Q12 PRN PO CONSTIPATION; Start 08/26/16 at 07: 30 Zolpidem Tartrate (Ambien) 5 mg QHS PRN PO SLEEP Last administered on 09/02/16 22:06; Admin Dose 5 MG; Start 08/26/16 at 07:30 Eye Lubricant (Artificial Tears Oph) 2 drop QID BOTH EYES Last administered on 09/03/16 14:22; Admin Dose 2 DROP; Start 08/27/16 at 10:30 Acetaminophen/ Hydrocodone Bitart ([place] (5/325)) 1 tab Q4H PRN PO MODERATE PAIN LEVEL 4-6 Last administered on 09/03/16 13:21; Admin Dose 1 TAB; Start at 12:20 Carbamide Peroxide (Debrox Otic) 3 drop BID BOTH EARS Last administered on 09:18; Admin Dose 3 DROP; Start 08/28/16 at 13:30 Rifampin (Rifampin) 600 mg DAILY PO Last administered on 09/03/16 09:20; Admin Dose 600 MG; Start 08/28/16 at 13:00 Naproxen (Naprosyn) 500 mg BID PRN PO PAIN LEVEL 7-10; Start 08/30/16 at 12:00 Clarithromycin (Biaxin) 500 mg BID PO Last administered on 09/03/16 09:21; Admin Dose 500 MG; Start 08/30/16 at 21:00; Stop 09/09/16 at 20:59 IV Flush 10 ml 10 ml PRN PRN IV IV PROTOCOL Last administered on 09/02/16 02:36 ; Admin Dose 10 ML; Start 08/31/16 at 12:30 Vancomycin HCl/ Sodium Chloride (Vancocin/NS) 150 ml @ 75 mls/hr Q8H IVPB Last administered on 09/03/16 10:12; Admin Dose 75 MLS/HR; Start 09/01/16 at 18: 00 Vancomycin HCl (Vancomycin/ Hypromellose Oph) 1 drop QID LEFT EYE Last administered on 09/03/16 13:21; Admin Dose 1 DROP; Start 09/01/16 at 17:00 LUX LUONG NP Sep 03, 2016 17:24
[2016-09-03 18:58] VITALS: BP 151/91; RESP 18
[2016-09-03 21:20] VITALS: BP 133/93; PULSE 78
[2016-09-03] MEDS: ZOLPIDEM 5 MG TAB PO PRN (22:27)
[2016-09-04] MEDS: HYDROCODONE/APAP (5/325) TAB PO PRN ×5 (01:22→20:44)
[2016-09-04] MEDS: VANCOMYCIN 750 MG in SOD CHLORIDE 0.9% 150 ML IVPB SCH ×2 (02:05→09:41)
[2016-09-04 08:14] VITALS: BP 136/82; RESP 19
[2016-09-04] MEDS: CLARITHROMYCIN 500 MG TAB PO SCH ×2 (08:45→20:44)
[2016-09-04] MEDS: VANCOMYCIN LEFT EYE SCH ×4 (08:46→20:43)
[2016-09-04] MEDS: ARTIFICIAL TEARS 15 ML OPH BOTH EYES SCH ×4 (08:46→20:44)
[2016-09-04] MEDS: CARBAMIDE PEROXIDE 6.5% 15ML OTIC BOTH EARS SCH ×2 (08:46→20:44)
[2016-09-04] MEDS: RIFAMPIN 300 MG CAP PO SCH (08:46)
[2016-09-04] MEDS: HYPROMELLOSE LEFT EYE SCH ×4 (08:46→20:43)
--- NOTE | 2016-09-04 13:06 | CONS ---
Date/Time of Note Date/Time of Note DATE: 09/04/16 TIME: 13:06 Assessment/Plan Assessment/Plan Additional Assessment/Plan [facility] per DR. Naidu this week planned. Consultation Date/Type/Reason Admit Date/Time Aug 26, 2016 at 03:14 Initial Consult Date 08/31/16 Type of Consultation: ID Referring Provider: MADELINE LEAL MD Exam/Review of Systems Vital Signs Vitals Vital Signs Date Time Temp Pulse Resp B/P Pulse Ox O2 Delivery O2 Flow Rate FiO2 09/04/16 08:14 98.5 113 19 136/82 99 08/31/16 16:22 Room Air Intake and Output 09/03/16 09/03/16 09/04/16 15:00 23:00 07:00 Intake Total 150 ml 1110 ml 630 ml Balance 150 ml 1110 ml 630 ml Results Result Diagram: 09/03/16 0440 09/03/16 0440 Medications Medications Current Medications Ondansetron HCl (Zofran Inj) 4 mg Q6H PRN IV NAUSEA AND/OR VOMITING Last administered on 08/27/16 23:36; Admin Dose 4 MG; Start 08/26/16 at 07:30 Acetaminophen (Tylenol Tab) 650 mg Q6H PRN PO PAIN LEVEL 1-3 OR FEVER Last administered on 09/02/16 02:06; Admin Dose 650 MG; Start 08/26/16 at 07:30 Morphine Sulfate (morphine) 2 mg Q4H PRN IV SEVERE PAIN LEVEL 7-10 Last administered on 08/27/16 23:36; Admin Dose 2 MG; Start 08/26/16 at 07:30 Docusate Sodium (Colace) 100 mg Q12 PRN PO CONSTIPATION; Start 08/26/16 at 07: 30 Zolpidem Tartrate (Ambien) 5 mg QHS PRN PO SLEEP Last administered on 09/03/16 22:27; Admin Dose 5 MG; Start 08/26/16 at 07:30 Eye Lubricant (Artificial Tears Oph) 2 drop QID BOTH EYES Last administered on 09/04/16 12:15; Admin Dose 2 DROP; Start 08/27/16 at 10:30 Acetaminophen/ Hydrocodone Bitart ([place] (5/325)) 1 tab Q4H PRN PO MODERATE PAIN LEVEL 4-6 Last administered on 09/04/16 08:45; Admin Dose 1 TAB; Start at 12:20 Carbamide Peroxide (Debrox Otic) 3 drop BID BOTH EARS Last administered on 08:46; Admin Dose 3 DROP; Start 08/28/16 at 13:30 Rifampin (Rifampin) 600 mg DAILY PO Last administered on 09/04/16 08:46; Admin Dose 600 MG; Start 08/28/16 at 13:00 Naproxen (Naprosyn) 500 mg BID PRN PO PAIN LEVEL 7-10; Start 08/30/16 at 12:00 Clarithromycin (Biaxin) 500 mg BID PO Last administered on 09/04/16 08:45; Admin Dose 500 MG; Start 08/30/16 at 21:00; Stop 09/09/16 at 20:59 IV Flush 10 ml 10 ml PRN PRN IV IV PROTOCOL Last administered on 09/02/16 02:36 ; Admin Dose 10 ML; Start 08/31/16 at 12:30 Vancomycin HCl/ Sodium Chloride (Vancocin/NS) 150 ml @ 75 mls/hr Q8H IVPB Last administered on 09/04/16 09:41; Admin Dose 75 MLS/HR; Start 09/01/16 at 18: 00 Vancomycin HCl (Vancomycin/ Hypromellose Oph) 1 drop QID LEFT EYE Last administered on 09/04/16 12:15; Admin Dose 1 DROP; Start 09/01/16 at 17:00 TAMAR KIRK MD Sep 04, 2016 13:06
--- NOTE | 2016-09-04 13:26 | CONS ---
Date/Time of Note Date/Time of Note DATE: 09/04/16 TIME: 13:24 Assessment/Plan Assessment/Plan Chief Complaint/Hosp Course No acute changes, alert, looks comfortable, no fevers Micro: Bld cx + MRSA, repeat blood cultures on September 01 are negative Indwelling: PICC line Abx: Vanco Rifampin Physical examination: Well developed white man, in no distress + left sided periorbital/ facial swelling Neck: supple Chest: Clear to auscultation Abdomen: Soft, + BT Ext: no edema, no cyanosis Assessment: 1. Persistent MRSA bacteremia likely 2 to #2, rule out other etiologies 2. Left periorbital/facial cellulitis 3. Chronic sinus disease 4. Bipolar disorder Plan: Clinically stable, left facial swelling markedly improved, repeat blood cultures negative. Patient was seen by ENT and ophthalmology. Pending [facility] and WBC labeled nuclear scan. Continue on current antimicrobials. [facility] staff Problems: Consultation Date/Type/Reason Admit Date/Time Aug 26, 2016 at 03:14 Type of Consultation: ID Referring Provider: MADELINE LEAL MD Exam/Review of Systems Vital Signs Vitals Vital Signs Date Time Temp Pulse Resp B/P Pulse Ox O2 Delivery O2 Flow Rate FiO2 09/04/16 08:14 98.5 113 19 136/82 99 08/31/16 16:22 Room Air Intake and Output 09/03/16 09/03/16 09/04/16 15:00 23:00 07:00 Intake Total 150 ml 1110 ml 630 ml Balance 150 ml 1110 ml 630 ml Results Result Diagram: 09/03/16 0440 09/03/16 0440 Medications Medications Current Medications Ondansetron HCl (Zofran Inj) 4 mg Q6H PRN IV NAUSEA AND/OR VOMITING Last administered on 08/27/16 23:36; Admin Dose 4 MG; Start 08/26/16 at 07:30 Acetaminophen (Tylenol Tab) 650 mg Q6H PRN PO PAIN LEVEL 1-3 OR FEVER Last administered on 09/02/16 02:06; Admin Dose 650 MG; Start 08/26/16 at 07:30 Morphine Sulfate (morphine) 2 mg Q4H PRN IV SEVERE PAIN LEVEL 7-10 Last administered on 08/27/16 23:36; Admin Dose 2 MG; Start 08/26/16 at 07:30 Docusate Sodium (Colace) 100 mg Q12 PRN PO CONSTIPATION; Start 08/26/16 at 07: 30 Zolpidem Tartrate (Ambien) 5 mg QHS PRN PO SLEEP Last administered on 09/03/16 22:27; Admin Dose 5 MG; Start 08/26/16 at 07:30 Eye Lubricant (Artificial Tears Oph) 2 drop QID BOTH EYES Last administered on 09/04/16 12:15; Admin Dose 2 DROP; Start 08/27/16 at 10:30 Acetaminophen/ Hydrocodone Bitart ([place] (5/325)) 1 tab Q4H PRN PO MODERATE PAIN LEVEL 4-6 Last administered on 09/04/16 13:07; Admin Dose 1 TAB; Start at 12:20 Carbamide Peroxide (Debrox Otic) 3 drop BID BOTH EARS Last administered on 08:46; Admin Dose 3 DROP; Start 08/28/16 at 13:30 Rifampin (Rifampin) 600 mg DAILY PO Last administered on 09/04/16 08:46; Admin Dose 600 MG; Start 08/28/16 at 13:00 Naproxen (Naprosyn) 500 mg BID PRN PO PAIN LEVEL 7-10; Start 08/30/16 at 12:00 Clarithromycin (Biaxin) 500 mg BID PO Last administered on 09/04/16 08:45; Admin Dose 500 MG; Start 08/30/16 at 21:00; Stop 09/09/16 at 20:59 IV Flush 10 ml 10 ml PRN PRN IV IV PROTOCOL Last administered on 09/02/16 02:36 ; Admin Dose 10 ML; Start 08/31/16 at 12:30 Vancomycin HCl/ Sodium Chloride (Vancocin/NS) 150 ml @ 75 mls/hr Q8H IVPB Last administered on 09/04/16 09:41; Admin Dose 75 MLS/HR; Start 09/01/16 at 18: 00 Vancomycin HCl (Vancomycin/ Hypromellose Oph) 1 drop QID LEFT EYE Last administered on 09/04/16 12:15; Admin Dose 1 DROP; Start 09/01/16 at 17:00 LUX LUONG NP Sep 04, 2016 13:25
--- NOTE | 2016-09-04 13:37 | PN ---
Date/Time of Note Date/Time of Note DATE: 09/04/16 TIME: 13:35 Assessment/Plan VTE Prophylaxis VTE Prophylaxis Intervention: SCD's Lines/Catheters IV Catheter Type (from Nrs): PICC Line Central line still needed: Yes Urinary Cath still in place: No Assessment/Plan Chief Complaint/Hosp Course 1. Sepsis with underlying MRSA bacteremia and periorbital cellulitis. Continue antibiotics as per infectious diseases. 2. Left preseptal cellulitis. Status post evaluation by ENT. Continue antibiotics. 3. Normocytic normochromic anemia. Etiology unclear. Monitor H&H closely. 4. Prediabetes. Hemoglobin A1c 6.3. Random blood glucose will be monitored and if blood glucose levels are high, will start the patient on appropriate therapy. 5. Nicotine use. Cessation advised. 6. Dyslipidemia with elevated triglycerides and suboptimal HDL. Will reinforce a low-cholesterol diet. 7. Fluids, electrolytes, and nutrition. Regular diet. 8. DVT prophylaxis. Bilateral sequential compression devices. 9. Gastrointestinal prophylaxis with histamine 2 receptor blockers. 10. Plan. Continue antimicrobials as per infectious diseases. Awaiting [facility]. Case discussed with Dr. Antoine. Problems: Subjective 24 Hr Interval Summary Free Text/Dictation Patient remains afebrile. Exam/Review of Systems Vital Signs Vitals Vital Signs Date Time Temp Pulse Resp B/P Pulse Ox O2 Delivery O2 Flow Rate FiO2 09/04/16 08:14 98.5 113 19 136/82 99 08/31/16 16:22 Room Air Intake and Output 09/03/16 09/03/16 09/04/16 15:00 23:00 07:00 Intake Total 150 ml 1110 ml 630 ml Balance 150 ml 1110 ml 630 ml Exam General: Adequately build 40 year-old male lying in bed in no apparent distress. HEENT: Normocephalic, atraumatic. Eyes: Anicteric sclerae, conjunctivae clear. Left eye periorbital edema. ENT: Nasal septum midline, oral mucosa moist. Neck supple, no JVD noticed. Respiratory: Bilaterally clear breath sounds. No use of accessory muscles of respiration. No adventitious breath sounds. Cardiovascular: S1, S2 heard. No murmurs or gallops. Abdomen: Soft, nontender, and nondistended. Bowel sounds positive in all 4 quadrants. Genitourinary: Deferred. Extremities: No cyanosis, no clubbing, no edema. Peripheral pulses palpable. Neurologic: Cranial nerves II through XII grossly intact. The patient is awake, alert, and oriented. Skin: Normal skin turgor. No skin rashes. Results Result Diagram: 09/03/1643909/03/16439 Medications Medications Current Medications Ondansetron HCl (Zofran Inj) 4 mg Q6H PRN IV NAUSEA AND/OR VOMITING Last administered on 08/27/16 23:36; Admin Dose 4 MG; Start 08/26/16 at 07:30 Acetaminophen (Tylenol Tab) 650 mg Q6H PRN PO PAIN LEVEL 1-3 OR FEVER Last administered on 09/02/16 02:06; Admin Dose 650 MG; Start 08/26/16 at 07:30 Morphine Sulfate (morphine) 2 mg Q4H PRN IV SEVERE PAIN LEVEL 7-10 Last administered on 08/27/16 23:36; Admin Dose 2 MG; Start 08/26/16 at 07:30 Docusate Sodium (Colace) 100 mg Q12 PRN PO CONSTIPATION; Start 08/26/16 at 07: 30 Zolpidem Tartrate (Ambien) 5 mg QHS PRN PO SLEEP Last administered on 09/03/16 22:27; Admin Dose 5 MG; Start 08/26/16 at 07:30 Eye Lubricant (Artificial Tears Oph) 2 drop QID BOTH EYES Last administered on 09/04/16 12:15; Admin Dose 2 DROP; Start 08/27/16 at 10:30 Acetaminophen/ Hydrocodone Bitart ([place] (5/325)) 1 tab Q4H PRN PO MODERATE PAIN LEVEL 4-6 Last administered on 09/04/16 13:07; Admin Dose 1 TAB; Start at 12:20 Carbamide Peroxide (Debrox Otic) 3 drop BID BOTH EARS Last administered on 08:46; Admin Dose 3 DROP; Start 08/28/16 at 13:30 Rifampin (Rifampin) 600 mg DAILY PO Last administered on 09/04/16 08:46; Admin Dose 600 MG; Start 08/28/16 at 13:00 Naproxen (Naprosyn) 500 mg BID PRN PO PAIN LEVEL 7-10; Start 08/30/16 at 12:00 Clarithromycin (Biaxin) 500 mg BID PO Last administered on 09/04/16 08:45; Admin Dose 500 MG; Start 08/30/16 at 21:00; Stop 09/09/16 at 20:59 IV Flush 10 ml 10 ml PRN PRN IV IV PROTOCOL Last administered on 09/02/16 02:36 ; Admin Dose 10 ML; Start 08/31/16 at 12:30 Vancomycin HCl/ Sodium Chloride (Vancocin/NS) 150 ml @ 75 mls/hr Q8H IVPB Last administered on 09/04/16 09:41; Admin Dose 75 MLS/HR; Start 09/01/16 at 18: 00 Vancomycin HCl (Vancomycin/ Hypromellose Oph) 1 drop QID LEFT EYE Last administered on 09/04/16 12:15; Admin Dose 1 DROP; Start 09/01/16 at 17:00 Miscellaneous Information (*Rx Drug Level Order Reminder*) 1 ONCE ONCE XX ; Start 09/04/16 at 17:00; Stop 09/04/16 at 17:01 LESTER CHEN NP Sep 04, 2016 13:37
[2016-09-04] MEDS: VANCOMYCIN 1 GM in NS 250 ML IVPB SCH (18:01)
[2016-09-04 19:20] VITALS: RESP 20
[2016-09-04] MEDS: FAMOTIDINE 20 MG TAB PO SCH (20:44)
[2016-09-04] MEDS: ZOLPIDEM 5 MG TAB PO PRN (23:27)
[2016-09-05] VITALS (10 sets, daily range): BP systolic 107–139; BP diastolic 68–99; PULSE 86–97; RESP 16–22
[2016-09-05] MEDS: VANCOMYCIN 1 GM in NS 250 ML IVPB SCH ×3 (01:49→17:30)
[2016-09-05] MEDS: HYDROCODONE/APAP (5/325) TAB PO PRN ×5 (01:57→22:00)
[2016-09-05 05:13] LABS: ADD SCAN DIFF NO
[2016-09-05 05:23] LABS: BASOPHILS % 0.1 % (0.0-2.0); EOSINOPHILS # 0.3 10^3/ul (0.0-0.5); EOSINOPHILS % 2.1 % (0.0-7.0); HEMATOCRIT 39.3 % (42.0-52.0); HEMOGLOBIN 12.4 g/dl (14.0-18.0); LYMPHOCYTES # 2.5 10^3/ul (0.8-2.9); MEAN CORPUSCULAR HEMOGLOBIN 28.8 pg (29.0-33.0); MEAN CORPUSCULAR HGB CONC 31.6 g/dl (32.0-37.0); MEAN CORPUSCULAR VOLUME 91.4 fl (82.0-101.0); MEAN PLATELET VOLUME 9.5 fl (7.4-10.4); MONOCYTE # 0.9 10^3/ul (0.3-0.9); MONOCYTES % 6.5 % (0.0-11.0); NEUTROPHIL # 9.4 10^3/ul (1.6-7.5); NEUTROPHILS % 70.4 % (39.0-77.0); PLATELET COUNT 679 10^3/UL (140-415); RED CELL DISTRIBUTION WIDTH 15.2 % (11.5-14.5); WHITE BLOOD COUNT 13.4 10^3/ul (4.8-10.8)
[2016-09-05 05:41] LABS: ALBUMIN/GLOBULIN RATIO 1.05; BILIRUBIN,INDIRECT 0.2 mg/dl (0-1.1); BILIRUBIN,TOTAL 0.2 mg/dl (0.2-1.3); CALCIUM 9.5 mg/dl (8.4-10.2); CREATININE 0.8 mg/dl (0.61-1.24); PHOSPHORUS 4.1 mg/dl (2.5-4.9); POTASSIUM 4.3 mmol/L (3.5-5.1); TOTAL PROTEIN 7.8 g/dl (6.1-8.1)
[2016-09-05 05:47] LABS: IRON 44 ug/dl (35-150)
[2016-09-05 05:56] LABS: TOTAL IRON BINDING CAPACITY 222 ug/dl (241-421)
--- NOTE | 2016-09-05 07:37 | PN ---
Date/Time of Note Date/Time of Note DATE: 09/05/16 TIME: 07:36 Assessment/Plan VTE Prophylaxis VTE Prophylaxis Intervention: ambulation, SCD's Lines/Catheters IV Catheter Type (from Nrs): PICC Line Central line still needed: Yes Urinary Cath still in place: No Assessment/Plan Chief Complaint/Hosp Course 1. Sepsis with underlying MRSA bacteremia and periorbital cellulitis. Continue antibiotics as per infectious diseases. 2. Left preseptal cellulitis. Status post evaluation by ENT. Continue antibiotics. 3. Normocytic normochromic anemia. Etiology unclear. Monitor H&H closely. 4. Prediabetes. Hemoglobin A1c 6.3. Random blood glucose will be monitored and if blood glucose levels are high, will start the patient on appropriate therapy. 5. Nicotine use. Cessation advised. 6. Dyslipidemia with elevated triglycerides and suboptimal HDL. Will reinforce a low-cholesterol diet. 7. Fluids, electrolytes, and nutrition. Regular diet. 8. DVT prophylaxis. Bilateral sequential compression devices. 9. Gastrointestinal prophylaxis with histamine 2 receptor blockers. 10. Plan. Continue antimicrobials as per infectious diseases. Awaiting [facility]. Case discussed with Dr. Antoine. Problems: Subjective 24 Hr Interval Summary Free Text/Dictation The patient remains afebrile. The patient getting ready to go to [facility]. Exam/Review of Systems Vital Signs Vitals Vital Signs Date Time Temp Pulse Resp B/P Pulse Ox O2 Delivery O2 Flow Rate FiO2 09/04/16 19:20 98.7 109 20 96 Intake and Output 09/04/16 09/04/16 09/05/16 15:00 23:00 07:00 Intake Total 150 ml 2110 ml 1270 ml Output Total 600 ml 1000 ml Balance 150 ml 1510 ml 270 ml Exam General: Adequately build 40 year-old male lying in bed in no apparent distress. HEENT: Normocephalic, atraumatic. Eyes: Anicteric sclerae, conjunctivae clear. Left eye periorbital edema. ENT: Nasal septum midline, oral mucosa moist. Neck supple, no JVD noticed. Respiratory: Bilaterally clear breath sounds. No use of accessory muscles of respiration. No adventitious breath sounds. Cardiovascular: S1, S2 heard. No murmurs or gallops. Abdomen: Soft, nontender, and nondistended. Bowel sounds positive in all 4 quadrants. Genitourinary: Deferred. Extremities: No cyanosis, no clubbing, no edema. Peripheral pulses palpable. Neurologic: Cranial nerves II through XII grossly intact. The patient is awake, alert, and oriented. Skin: Normal skin turgor. No skin rashes. Results Result Diagram: 09/05/168 09/05/168 Results 24 hrs Laboratory Tests Test 09/04/16 16:55 09/05/16 04:28 Vancomycin Level Trough 11.7 White Blood Count 13.4 H Red Blood Count 4.30 L Hemoglobin 12.4 L Hematocrit 39.3 L Mean Corpuscular Volume 91.4 Mean Corpuscular Hemoglobin 28.8 L Mean Corpuscular Hemoglobin Concent 31.6 L Red Cell Distribution Width 15.2 H Platelet Count 679 H Mean Platelet Volume 9.5 Neutrophils % 70.4 Lymphocytes % 19.0 Monocytes % 6.5 Eosinophils % 2.1 Basophils % 0.1 Nucleated Red Blood Cells % 0.0 Neutrophils # 9.4 H Lymphocytes # 2.5 Monocytes # 0.9 Eosinophils # 0.3 Basophils # 0.0 Nucleated Red Blood Cells # 0.0 Sodium Level 141 Potassium Level 4.3 Chloride Level 98 Carbon Dioxide Level 28 Anion Gap 19 H Blood Urea Nitrogen 11 Creatinine 0.80 Glucose Level 108 Calcium Level 9.5 Phosphorus Level 4.1 Magnesium Level 2.0 Iron Level 44 Total Iron Binding Capacity 222 L Percent Iron Saturation 20 L Ferritin Pending Total Bilirubin 0.2 Direct Bilirubin 0.00 Indirect Bilirubin 0.2 Aspartate Amino Transf (AST/SGOT) 32 Alanine Aminotransferase (ALT/SGPT) 61 Alkaline Phosphatase 101 Total Protein 7.8 Albumin 4.0 Globulin 3.80 H Albumin/Globulin Ratio 1.05 Medications Medications Current Medications Ondansetron HCl (Zofran Inj) 4 mg Q6H PRN IV NAUSEA AND/OR VOMITING Last administered on 08/27/16 23:36; Admin Dose 4 MG; Start 08/26/16 at 07:30 Acetaminophen (Tylenol Tab) 650 mg Q6H PRN PO PAIN LEVEL 1-3 OR FEVER Last administered on 09/02/16 02:06; Admin Dose 650 MG; Start 08/26/16 at 07:30 Morphine Sulfate (morphine) 2 mg Q4H PRN IV SEVERE PAIN LEVEL 7-10 Last administered on 08/27/16 23:36; Admin Dose 2 MG; Start 08/26/16 at 07:30 Docusate Sodium (Colace) 100 mg Q12 PRN PO CONSTIPATION; Start 08/26/16 at 07: 30 Zolpidem Tartrate (Ambien) 5 mg QHS PRN PO SLEEP Last administered on 09/04/16 23:27; Admin Dose 5 MG; Start 08/26/16 at 07:30 Eye Lubricant (Artificial Tears Oph) 2 drop QID BOTH EYES Last administered on 09/04/16 20:44; Admin Dose 2 DROP; Start 08/27/16 at 10:30 Acetaminophen/ Hydrocodone Bitart ([place] (5/325)) 1 tab Q4H PRN PO MODERATE PAIN LEVEL 4-6 Last administered on 09/05/16 06:39; Admin Dose 1 TAB; Start at 12:20 Carbamide Peroxide (Debrox Otic) 3 drop BID BOTH EARS Last administered on 20:44; Admin Dose 3 DROP; Start 08/28/16 at 13:30 Rifampin (Rifampin) 600 mg DAILY PO Last administered on 09/04/16 08:46; Admin Dose 600 MG; Start 08/28/16 at 13:00 Naproxen (Naprosyn) 500 mg BID PRN PO PAIN LEVEL 7-10; Start 08/30/16 at 12:00 Clarithromycin (Biaxin) 500 mg BID PO Last administered on 09/04/16 20:44; Admin Dose 500 MG; Start 08/30/16 at 21:00; Stop 09/09/16 at 20:59 IV Flush (NS 10 ml) 10 ml PRN PRN IV IV PROTOCOL Last administered on 09/04/16 20:45; Admin Dose 10 ML; Start 08/31/16 at 12:30 Vancomycin HCl (Vancomycin/ Hypromellose Oph) 1 drop QID LEFT EYE Last administered on 09/04/16 20:43; Admin Dose 1 DROP; Start 09/01/16 at 17:00 Famotidine 20 mg 20 mg BID PO Last administered on 09/04/16 20:44; Admin Dose 20 MG; Start 09/04/16 at 21:00 Vancomycin HCl (Vancocin) 250 ml @ 125 mls/hr Q8H IVPB Last administered on 01:49; Admin Dose 125 MLS/HR; Start 09/04/16 at 18:00 LESTER CHEN NP Sep 05, 2016 07:37
[2016-09-05] MEDS: FAMOTIDINE 20 MG TAB PO SCH ×2 (09:00→21:15)
[2016-09-05] MEDS: RIFAMPIN 300 MG CAP PO SCH ×2 (09:00→13:46)
[2016-09-05] MEDS: CLARITHROMYCIN 500 MG TAB PO SCH ×3 (09:00→21:15)
[2016-09-05] MEDS: VANCOMYCIN LEFT EYE SCH ×4 (09:10→21:15)
[2016-09-05] MEDS: HYPROMELLOSE LEFT EYE SCH ×4 (09:10→21:15)
[2016-09-05] MEDS: CARBAMIDE PEROXIDE 6.5% 15ML OTIC BOTH EARS SCH ×2 (09:11→21:14)
[2016-09-05] MEDS: ARTIFICIAL TEARS 15 ML OPH BOTH EYES SCH ×4 (09:11→22:01)
[2016-09-05] MEDS ORDERED: PROPOFOL 20 ML ONE (10:57)
--- NOTE | 2016-09-05 11:12 | RADRPT ---
Vent Rate: 76 bpm RR Interval: 0 msec SD Interval: 114 msec QRS Duration: 84 msec QT Interval: 340 msec QTC Interval: 382 msec P-R-T [place]: 49 - 44 - 21 degrees Normal sinus rhythm with sinus arrhythmia Normal ECG Electronically Signed By: Gareth Dhillon [id number]
[2016-09-05] MEDS ORDERED: METOCLOPRAMIDE 10 MG INJ IV PRN (11:30)
[2016-09-05] MEDS ORDERED: MEPERIDINE 25 MG INJ IV PRN (11:30)
[2016-09-05] MEDS ORDERED: ONDANSETRON 4 MG INJ IV PRN (11:30)
[2016-09-05] MEDS ORDERED: OXYCODONE/ACETAMINOPHEN (5/325) TAB PO PRN ×2 (11:30)
[2016-09-05] MEDS ORDERED: DIPHENHYDRAMINE 50 MG INJ IV PRN (11:30)
[2016-09-05] MEDS ORDERED: FENTAnyl 50 MCG/ML VIAL IV PRN (11:30)
[2016-09-05] MEDS ORDERED: MIDAZOLAM 1 MG/ML 2 ML INJ IV PRN (11:30)
--- NOTE | 2016-09-05 11:56 | CONS ---
Date/Time of Note Date/Time of Note DATE: 09/05/16 TIME: 11:54 Assessment/Plan Assessment/Plan Chief Complaint/Hosp Course IMP: 1. Bacteremia-persistent MRSA 2.periorbital celluitis 3.bipolar d/o Recc: -[facility] today -Continue abx's -F/U cx data Problems: Consultation Date/Type/Reason Admit Date/Time Aug 26, 2016 at 03:14 Initial Consult Date 08/31/16 Type of Consultation: Cardiology Reason for Consultation bacteremia Referring Provider: MADELINE LEAL MD Exam/Review of Systems Vital Signs Vitals Vital Signs Date Time Temp Pulse Resp B/P Pulse Ox O2 Delivery O2 Flow Rate FiO2 09/05/16 08:31 97.5 99 134/94 99 09/04/16 19:20 20 Intake and Output 09/04/16 09/04/16 09/05/16 15:00 23:00 07:00 Intake Total 150 ml 2110 ml 1270 ml Output Total 600 ml 1000 ml Balance 150 ml 1510 ml 270 ml Exam Review of Systems: CONSTITUTIONAL: No fevers, chills. PULMONARY: No sob CARDIOVASCULAR: No chest pain/palpitations GASTROINTESTINAL: No nausea/vomiting. GENITOURINARY: No hematuria/dysuria. MUSCULOSKELETAL: No myagias/arthalgias. PSYCHIATRIC: The patient denies depression. NEUROLOGIC: No weakness Constitutional: alert, oriented Psych: no complaints Head: normocephalic ENMT: mucosa pink and moist Neck: supple Respiratory: clear to auscultation Cardiovascular: regular rate and rhythm Gastrointestinal: non-tender, soft Musculoskeletal: muscle tone (normal) Extremities: edema (none) Neurological: other (no focal deficits) Results Result Diagram: 09/05/16 0428 09/05/16 0428 Results 24 hrs Laboratory Tests Test 09/04/16 16:55 09/05/16 04:28 Vancomycin Level Trough 11.7 White Blood Count 13.4 H Red Blood Count 4.30 L Hemoglobin 12.4 L Hematocrit 39.3 L Mean Corpuscular Volume 91.4 Mean Corpuscular Hemoglobin 28.8 L Mean Corpuscular Hemoglobin Concent 31.6 L Red Cell Distribution Width 15.2 H Platelet Count 679 H Mean Platelet Volume 9.5 Neutrophils % 70.4 Lymphocytes % 19.0 Monocytes % 6.5 Eosinophils % 2.1 Basophils % 0.1 Nucleated Red Blood Cells % 0.0 Neutrophils # 9.4 H Lymphocytes # 2.5 Monocytes # 0.9 Eosinophils # 0.3 Basophils # 0.0 Nucleated Red Blood Cells # 0.0 Sodium Level 141 Potassium Level 4.3 Chloride Level 98 Carbon Dioxide Level 28 Anion Gap 19 H Blood Urea Nitrogen 11 Creatinine 0.80 Glucose Level 108 Calcium Level 9.5 Phosphorus Level 4.1 Magnesium Level 2.0 Iron Level 44 Total Iron Binding Capacity 222 L Percent Iron Saturation 20 L Ferritin 596.0 H Total Bilirubin 0.2 Direct Bilirubin 0.00 Indirect Bilirubin 0.2 Aspartate Amino Transf (AST/SGOT) 32 Alanine Aminotransferase (ALT/SGPT) 61 Alkaline Phosphatase 101 Total Protein 7.8 Albumin 4.0 Globulin 3.80 H Albumin/Globulin Ratio 1.05 Medications Medications Current Medications Ondansetron HCl (Zofran Inj) 4 mg Q6H PRN IV NAUSEA AND/OR VOMITING Last administered on 08/27/16 23:36; Admin Dose 4 MG; Start 08/26/16 at 07:30 Acetaminophen (Tylenol Tab) 650 mg Q6H PRN PO PAIN LEVEL 1-3 OR FEVER Last administered on 09/02/16 02:06; Admin Dose 650 MG; Start 08/26/16 at 07:30 Morphine Sulfate (morphine) 2 mg Q4H PRN IV SEVERE PAIN LEVEL 7-10 Last administered on 08/27/16 23:36; Admin Dose 2 MG; Start 08/26/16 at 07:30 Docusate Sodium (Colace) 100 mg Q12 PRN PO CONSTIPATION; Start 08/26/16 at 07: 30 Zolpidem Tartrate (Ambien) 5 mg QHS PRN PO SLEEP Last administered on 09/04/16 23:27; Admin Dose 5 MG; Start 08/26/16 at 07:30 Eye Lubricant (Artificial Tears Oph) 2 drop QID BOTH EYES Last administered on 09/05/16 09:11; Admin Dose 2 DROP; Start 08/27/16 at 10:30 Acetaminophen/ Hydrocodone Bitart ([place] (5/325)) 1 tab Q4H PRN PO MODERATE PAIN LEVEL 4-6 Last administered on 09/05/16 06:39; Admin Dose 1 TAB; Start at 12:20 Carbamide Peroxide (Debrox Otic) 3 drop BID BOTH EARS Last administered on 09:11; Admin Dose 3 DROP; Start 08/28/16 at 13:30 Rifampin (Rifampin) 600 mg DAILY PO Last administered on 09/04/16 08:46; Admin Dose 600 MG; Start 08/28/16 at 13:00 Naproxen (Naprosyn) 500 mg BID PRN PO PAIN LEVEL 7-10; Start 08/30/16 at 12:00 Clarithromycin (Biaxin) 500 mg BID PO Last administered on 09/04/16 20:44; Admin Dose 500 MG; Start 08/30/16 at 21:00; Stop 09/09/16 at 20:59 IV Flush (NS 10 ml) 10 ml PRN PRN IV IV PROTOCOL Last administered on 09/04/16 20:45; Admin Dose 10 ML; Start 08/31/16 at 12:30 Vancomycin HCl (Vancomycin/ Hypromellose Oph) 1 drop QID LEFT EYE Last administered on 09/05/16 09:10; Admin Dose 1 DROP; Start 09/01/16 at 17:00 Famotidine 20 mg 20 mg BID PO Last administered on 09/04/16 20:44; Admin Dose 20 MG; Start 09/04/16 at 21:00 Vancomycin HCl (Vancocin) 250 ml @ 125 mls/hr Q8H IVPB Last administered on 09:45; Admin Dose 125 MLS/HR; Start 09/04/16 at 18:00 Miscellaneous Information (*Rx Drug Level Order Reminder*) VANCO TROUGH @ 0, 100 ON... ONCE ONCE XX ; Start 09/06/16 at 01:00; Stop 09/06/16 at 01:01 CAMILA DELGADO Sep 05, 2016 11:56
--- NOTE | 2016-09-05 12:44 | CONS ---
Date/Time of Note Date/Time of Note DATE: 09/05/16 TIME: 12:43 Assessment/Plan Assessment/Plan Chief Complaint/Hosp Course No acute changes, no fevers Micro: Bld cx + MRSA, repeat blood cultures on September 01 are negative Indwelling: PICC line Abx: Vanco Rifampin Physical examination: Well developed white man, in no distress + left sided periorbital/ facial swelling Neck: supple Chest: Clear to auscultation Abdomen: Soft, + BT Ext: no edema, no cyanosis Assessment: 1. Persistent MRSA bacteremia likely 2 to #2, rule out other etiologies 2. Left periorbital/facial cellulitis 3. Chronic sinus disease 4. Bipolar disorder Plan: Continue current antibiotics, await for MOLLY and WBC labeled nuclear scan [facility] staff Problems: Consultation Date/Type/Reason Admit Date/Time Aug 26, 2016 at 03:14 Type of Consultation: Infectious disease Referring Provider: MADELINE LEAL MD Exam/Review of Systems Vital Signs Vitals Vital Signs Date Time Temp Pulse Resp B/P Pulse Ox O2 Delivery O2 Flow Rate FiO2 09/05/16 08:31 97.5 99 134/94 99 09/04/16 19:20 20 Intake and Output 09/04/16 09/04/16 09/05/16 15:00 23:00 07:00 Intake Total 150 ml 2110 ml 1270 ml Output Total 600 ml 1000 ml Balance 150 ml 1510 ml 270 ml Results Result Diagram: 09/05/16 0428 09/05/16 0428 Results 24 hrs Laboratory Tests Test 09/04/16 16:55 09/05/16 04:28 Vancomycin Level Trough 11.7 White Blood Count 13.4 H Red Blood Count 4.30 L Hemoglobin 12.4 L Hematocrit 39.3 L Mean Corpuscular Volume 91.4 Mean Corpuscular Hemoglobin 28.8 L Mean Corpuscular Hemoglobin Concent 31.6 L Red Cell Distribution Width 15.2 H Platelet Count 679 H Mean Platelet Volume 9.5 Neutrophils % 70.4 Lymphocytes % 19.0 Monocytes % 6.5 Eosinophils % 2.1 Basophils % 0.1 Nucleated Red Blood Cells % 0.0 Neutrophils # 9.4 H Lymphocytes # 2.5 Monocytes # 0.9 Eosinophils # 0.3 Basophils # 0.0 Nucleated Red Blood Cells # 0.0 Sodium Level 141 Potassium Level 4.3 Chloride Level 98 Carbon Dioxide Level 28 Anion Gap 19 H Blood Urea Nitrogen 11 Creatinine 0.80 Glucose Level 108 Calcium Level 9.5 Phosphorus Level 4.1 Magnesium Level 2.0 Iron Level 44 Total Iron Binding Capacity 222 L Percent Iron Saturation 20 L Ferritin 596.0 H Total Bilirubin 0.2 Direct Bilirubin 0.00 Indirect Bilirubin 0.2 Aspartate Amino Transf (AST/SGOT) 32 Alanine Aminotransferase (ALT/SGPT) 61 Alkaline Phosphatase 101 Total Protein 7.8 Albumin 4.0 Globulin 3.80 H Albumin/Globulin Ratio 1.05 Medications Medications Current Medications Ondansetron HCl (Zofran Inj) 4 mg Q6H PRN IV NAUSEA AND/OR VOMITING Last administered on 08/27/16 23:36; Admin Dose 4 MG; Start 08/26/16 at 07:30 Acetaminophen (Tylenol Tab) 650 mg Q6H PRN PO PAIN LEVEL 1-3 OR FEVER Last administered on 09/02/16 02:06; Admin Dose 650 MG; Start 08/26/16 at 07:30 Morphine Sulfate (morphine) 2 mg Q4H PRN IV SEVERE PAIN LEVEL 7-10 Last administered on 08/27/16 23:36; Admin Dose 2 MG; Start 08/26/16 at 07:30 Docusate Sodium (Colace) 100 mg Q12 PRN PO CONSTIPATION; Start 08/26/16 at 07: 30 Zolpidem Tartrate (Ambien) 5 mg QHS PRN PO SLEEP Last administered on 09/04/16 23:27; Admin Dose 5 MG; Start 08/26/16 at 07:30 Eye Lubricant (Artificial Tears Oph) 2 drop QID BOTH EYES Last administered on 09/05/16 09:11; Admin Dose 2 DROP; Start 08/27/16 at 10:30 Acetaminophen/ Hydrocodone Bitart ([place] (5/325)) 1 tab Q4H PRN PO MODERATE PAIN LEVEL 4-6 Last administered on 09/05/16 06:39; Admin Dose 1 TAB; Start at 12:20 Carbamide Peroxide (Debrox Otic) 3 drop BID BOTH EARS Last administered on 09:11; Admin Dose 3 DROP; Start 08/28/16 at 13:30 Rifampin (Rifampin) 600 mg DAILY PO Last administered on 09/04/16 08:46; Admin Dose 600 MG; Start 08/28/16 at 13:00 Naproxen (Naprosyn) 500 mg BID PRN PO PAIN LEVEL 7-10; Start 08/30/16 at 12:00 Clarithromycin (Biaxin) 500 mg BID PO Last administered on 09/04/16 20:44; Admin Dose 500 MG; Start 08/30/16 at 21:00; Stop 09/09/16 at 20:59 IV Flush (NS 10 ml) 10 ml PRN PRN IV IV PROTOCOL Last administered on 09/04/16 20:45; Admin Dose 10 ML; Start 08/31/16 at 12:30 Vancomycin HCl (Vancomycin/ Hypromellose Oph) 1 drop QID LEFT EYE Last administered on 09/05/16 09:10; Admin Dose 1 DROP; Start 09/01/16 at 17:00 Famotidine 20 mg 20 mg BID PO Last administered on 09/04/16 20:44; Admin Dose 20 MG; Start 09/04/16 at 21:00 Vancomycin HCl (Vancocin) 250 ml @ 125 mls/hr Q8H IVPB Last administered on 09:45; Admin Dose 125 MLS/HR; Start 09/04/16 at 18:00 Miscellaneous Information (*Rx Drug Level Order Reminder*) VANCO TROUGH @ 0, 100 ON... ONCE ONCE XX ; Start 09/06/16 at 01:00; Stop 09/06/16 at 01:01 LUX LUONG NP Sep 05, 2016 12:44
--- NOTE | 2016-09-05 12:52 | OPR ---
Date/Time of Note Date/Time of Note DATE: 09/05/16 TIME: 12:41 Operative Report Procedure Date: Sep 05, 2016 Preoperative Diagnosis bacteremia Postoperative Diagnosis Bacteremia Operation Performed MOLLY Surgeon: CAMILA DELGADO Anesthesia: MAC (with propofol) Anesthesiologist: JORDAN GARCIA MD Estimated Blood Loss: none Complications: None Pt Condition Post Procedure: stable Disposition: other (Med-surg) Indications Bacteremia Operative\Procedure Findings Normal LV size and systolic function Normal appearing mitral valve with mild regurgitation Normal appearing aortic valve with no AR Normal appearing Tricuspid valve with mild tricuspid regurgitation Somewhat poorly visualized pulmonic apparatus No definite PFO or other inter-atrial septal defect by color flow doppler interrogation of the septum only Mild atherosclerotic plaquing of the descending and ascending aorta Impression: !.No definite findings of vavular vegetations on any of the well visualized valvular apparati Recc: -Continue abx's and search for alternative source for the patient's persistent bacteremia Procedure Description Connected to continuous tele monitoring, BP cuff cycling every 3 minutes, bite block placed in mouth. Patient given MAC anesthesia by anthesiologist with propofol. Esophagus intubated with MOLLY probe and intra-cardiac structures adequately interrogated. MOLLY removed and the patient was allowed to awake from his anesthetized state. This completed the procedure. There were no complications. CAMILA DELGADO Sep 05, 2016 12:51
[2016-09-06] MEDS: VANCOMYCIN 1 GM in NS 250 ML IVPB SCH ×2 (02:17→08:37)
[2016-09-06] MEDS: ZOLPIDEM 5 MG TAB PO PRN (02:17)
[2016-09-06] MEDS: HYDROCODONE/APAP (5/325) TAB PO PRN ×3 (02:18→11:01)
[2016-09-06 05:16] LABS: ADD SCAN DIFF NO
[2016-09-06 05:19] LABS: BASOPHILS % 0.2 % (0.0-2.0); EOSINOPHILS # 0.3 10^3/ul (0.0-0.5); HEMOGLOBIN 11.4 g/dl (14.0-18.0); LYMPHOCYTES # 2.9 10^3/ul (0.8-2.9); LYMPHOCYTES % 23.5 % (15.0-51.0); MEAN CORPUSCULAR HEMOGLOBIN 28.3 pg (29.0-33.0); MEAN CORPUSCULAR HGB CONC 30.8 g/dl (32.0-37.0); MEAN CORPUSCULAR VOLUME 91.8 fl (82.0-101.0); MEAN PLATELET VOLUME 9.5 fl (7.4-10.4); MONOCYTE # 0.8 10^3/ul (0.3-0.9); MONOCYTES % 6.1 % (0.0-11.0); NEUTROPHIL # 8.2 10^3/ul (1.6-7.5); NEUTROPHILS % 66.9 % (39.0-77.0); PLATELET COUNT 645 10^3/UL (140-415); RED BLOOD COUNT 4.03 10^6/ul (4.70-6.10); RED CELL DISTRIBUTION WIDTH 15.3 % (11.5-14.5); WHITE BLOOD COUNT 12.2 10^3/ul (4.8-10.8)
[2016-09-06 05:39] LABS: PHOSPHORUS 4.3 mg/dl (2.5-4.9)
[2016-09-06 05:44] LABS: CALCIUM 9.1 mg/dl (8.4-10.2); CREATININE 0.79 mg/dl (0.61-1.24); POTASSIUM 4.2 mmol/L (3.5-5.1)
[2016-09-06 07:38] VITALS: BP 136/93; RESP 20
[2016-09-06] MEDS: CLARITHROMYCIN 500 MG TAB PO SCH (08:39)
[2016-09-06] MEDS: FAMOTIDINE 20 MG TAB PO SCH (08:39)
[2016-09-06] MEDS: ARTIFICIAL TEARS 15 ML OPH BOTH EYES SCH ×2 (08:39→12:44)
[2016-09-06] MEDS: RIFAMPIN 300 MG CAP PO SCH (08:39)
[2016-09-06] MEDS: CARBAMIDE PEROXIDE 6.5% 15ML OTIC BOTH EARS SCH (08:39)
[2016-09-06] MEDS: HYPROMELLOSE LEFT EYE SCH ×2 (09:31→12:44)
[2016-09-06] MEDS: VANCOMYCIN LEFT EYE SCH ×2 (09:31→12:44)
--- NOTE | 2016-09-06 10:43 | RADRPT ---
PROCEDURE: Nuclear medicine whole-body white blood cell scan CLINICAL INDICATION: Infection. Elevated white blood cell count. Fevers. Left eye swelling with facial and neck swelling. TECHNIQUE: 0.49 mCi of Indium-111 labeled white blood cells was administered intravenously. Plana r imaging of the whole-body was performed in the anterior and posterior views. 24 uptake images wer e obtained. Spot images were obtained as well. Images were reviewed on the high resolution PACS [employer]. COMPARISON: None available FINDINGS: There is normal uptake throughout the whole-body white blood cell scan. Normal physiologic activity is seen within the reticuloendothelial system. No focus of abnormal increased activity is identifi ed to indicate abscess. The lungs are grossly unremarkable. IMPRESSION: 1. Negative whole body white blood cell scan. 2. No evidence for infectious process. RPTAT: AAEE .J Luis Mena MD, MD Date Time Electronically viewed and signed by .J Luis Mena MD, MD on 09/06/2016 10:42 .B/
--- NOTE | 2016-09-06 11:24 | CONS ---
Date/Time of Note Date/Time of Note DATE: 09/06/16 TIME: 11:21 Assessment/Plan Assessment/Plan Chief Complaint/Hosp Course No acute changes, no fevers Micro: Bld cx + MRSA, repeat blood cultures on September 01 are negative Indwelling: PICC line Abx: Vanco Rifampin Physical examination: Well developed white man, in no distress + left sided periorbital/ facial swelling Neck: supple Chest: Clear to auscultation Abdomen: Soft, + BT Ext: no edema, no cyanosis Assessment: 1. Persistent MRSA bacteremia 2 to #2 2. Left periorbital/facial cellulitis 3. Chronic sinus disease 4. Bipolar disorder Plan: Continue current antibiotics, MOLLY and WBC labeled nuclear scan negative, ok dc on IV Vanco till September 15 staff/pt Problems: Consultation Date/Type/Reason Admit Date/Time Aug 26, 2016 at 03:14 Type of Consultation: Infectious disease Referring Provider: MADELINE LEAL MD Exam/Review of Systems Vital Signs Vitals Vital Signs Date Time Temp Pulse Resp B/P Pulse Ox O2 Delivery O2 Flow Rate FiO2 09/06/16 07:38 98.3 107 20 136/93 96 09/05/16 14:15 Room Air 09/05/16 13:20 2.0 Intake and Output 09/05/16 09/05/16 09/06/16 15:01 23:01 07:01 Intake Total 2380 ml 1490 ml Output Total 600 ml 1450 ml Balance 1780 ml 40 ml Results Result Diagram: 09/06/16 0450 09/06/16 0450 Results 24 hrs Laboratory Tests Test 09/06/16 00:52 09/06/16 04:50 Vancomycin Level Trough 17.6 White Blood Count 12.2 H Red Blood Count 4.03 L Hemoglobin 11.4 L Hematocrit 37.0 L Mean Corpuscular Volume 91.8 Mean Corpuscular Hemoglobin 28.3 L Mean Corpuscular Hemoglobin Concent 30.8 L Red Cell Distribution Width 15.3 H Platelet Count 645 H Mean Platelet Volume 9.5 Neutrophils % 66.9 Lymphocytes % 23.5 Monocytes % 6.1 Eosinophils % 2.0 Basophils % 0.2 Nucleated Red Blood Cells % 0.0 Neutrophils # 8.2 H Lymphocytes # 2.9 Monocytes # 0.8 Eosinophils # 0.3 Basophils # 0.0 Nucleated Red Blood Cells # 0.0 Sodium Level 139 Potassium Level 4.2 Chloride Level 102 Carbon Dioxide Level 28 Anion Gap 13 Blood Urea Nitrogen 9 Creatinine 0.79 Glucose Level 112 Calcium Level 9.1 Phosphorus Level 4.3 Magnesium Level 2.0 Medications Medications Current Medications Ondansetron HCl (Zofran Inj) 4 mg Q6H PRN IV NAUSEA AND/OR VOMITING Last administered on 08/27/16 23:36; Admin Dose 4 MG; Start 08/26/16 at 07:30 Acetaminophen (Tylenol Tab) 650 mg Q6H PRN PO PAIN LEVEL 1-3 OR FEVER Last administered on 09/02/16 02:06; Admin Dose 650 MG; Start 08/26/16 at 07:30 Morphine Sulfate (morphine) 2 mg Q4H PRN IV SEVERE PAIN LEVEL 7-10 Last administered on 08/27/16 23:36; Admin Dose 2 MG; Start 08/26/16 at 07:30 Docusate Sodium (Colace) 100 mg Q12 PRN PO CONSTIPATION; Start 08/26/16 at 07: 30 Zolpidem Tartrate (Ambien) 5 mg QHS PRN PO SLEEP Last administered on 09/06/16 02:17; Admin Dose 5 MG; Start 08/26/16 at 07:30 Eye Lubricant (Artificial Tears Oph) 2 drop QID BOTH EYES Last administered on 09/06/16 08:39; Admin Dose 2 DROP; Start 08/27/16 at 10:30 Acetaminophen/ Hydrocodone Bitart ([place] (5/325)) 1 tab Q4H PRN PO MODERATE PAIN LEVEL 4-6 Last administered on 09/06/16 11:01; Admin Dose 1 TAB; Start at 12:20 Carbamide Peroxide (Debrox Otic) 3 drop BID BOTH EARS Last administered on 08:39; Admin Dose 3 DROP; Start 08/28/16 at 13:30 Rifampin (Rifampin) 600 mg DAILY PO Last administered on 09/06/16 08:39; Admin Dose 600 MG; Start 08/28/16 at 13:00 Naproxen (Naprosyn) 500 mg BID PRN PO PAIN LEVEL 7-10; Start 08/30/16 at 12:00 Clarithromycin (Biaxin) 500 mg BID PO Last administered on 09/06/16 08:39; Admin Dose 500 MG; Start 08/30/16 at 21:00; Stop 09/09/16 at 20:59 IV Flush (NS 10 ml) 10 ml PRN PRN IV IV PROTOCOL Last administered on 09/04/16 20:45; Admin Dose 10 ML; Start 08/31/16 at 12:30 Vancomycin HCl (Vancomycin/ Hypromellose Oph) 1 drop QID LEFT EYE Last administered on 09/06/16 09:31; Admin Dose 1 DROP; Start 09/01/16 at 17:00 Famotidine 20 mg 20 mg BID PO Last administered on 09/06/16 08:39; Admin Dose 20 MG; Start 09/04/16 at 21:00 Vancomycin HCl/ Sodium Chloride (Vancocin/NS) 250 ml @ 125 mls/hr Q8H IVPB ; Start 09/06/16 at 20:00 LUX LUONG NP Sep 06, 2016 11:24
[2016-09-06] MEDS ORDERED: LACTOBACILLUS RHAMNOSUS CAP PO SCH (12:00)
--- NOTE | 2016-09-06 12:04 | CONS ---
Date/Time of Note Date/Time of Note DATE: 09/06/16 TIME: 12:01 Assessment/Plan Assessment/Plan Chief Complaint/Hosp Course IMP: 1. Bacteremia-persistent MRSA. s/p MOLLY with no definite findings of vegetations. Tagged WBC scan no sig findings 2.periorbital celluitis 3.bipolar d/o Recc: -Continue abx's -F/U cx data -D/C planning -tolerating PO's with no sig throat irritation s/p MOLLY Problems: Consultation Date/Type/Reason Admit Date/Time Aug 26, 2016 at 03:14 Initial Consult Date 08/31/16 Type of Consultation: cardiology Reason for Consultation bacteremia Referring Provider: MADELINE LEAL MD Exam/Review of Systems Vital Signs Vitals Vital Signs Date Time Temp Pulse Resp B/P Pulse Ox O2 Delivery O2 Flow Rate FiO2 09/06/16 07:38 98.3 107 20 136/93 96 09/05/16 14:15 Room Air 09/05/16 13:20 2.0 Intake and Output 09/05/16 09/05/16 09/06/16 15:00 23:00 07:00 Intake Total 2380 ml 1490 ml Output Total 600 ml 1450 ml Balance 1780 ml 40 ml Exam Review of Systems: CONSTITUTIONAL: No fevers, chills. PULMONARY: No sob CARDIOVASCULAR: No chest pain/palpitations GASTROINTESTINAL: No nausea/vomiting. GENITOURINARY: No hematuria/dysuria. MUSCULOSKELETAL: No myagias/arthalgias. PSYCHIATRIC: The patient denies depression. NEUROLOGIC: No weakness Constitutional: alert, oriented Psych: no complaints Head: normocephalic ENMT: mucosa pink and moist Neck: jvd (8 cm water), supple Respiratory: clear to auscultation Cardiovascular: regular rate and rhythm Gastrointestinal: non-tender, soft Musculoskeletal: muscle tone (normal) Extremities: edema (none) Neurological: other (No focal deficits) Results Result Diagram: 09/06/16 04509/06/16 045 Results 24 hrs Laboratory Tests Test 09/06/16 00:52 09/06/16 04:50 Vancomycin Level Trough 17.6 White Blood Count 12.2 H Red Blood Count 4.03 L Hemoglobin 11.4 L Hematocrit 37.0 L Mean Corpuscular Volume 91.8 Mean Corpuscular Hemoglobin 28.3 L Mean Corpuscular Hemoglobin Concent 30.8 L Red Cell Distribution Width 15.3 H Platelet Count 645 H Mean Platelet Volume 9.5 Neutrophils % 66.9 Lymphocytes % 23.5 Monocytes % 6.1 Eosinophils % 2.0 Basophils % 0.2 Nucleated Red Blood Cells % 0.0 Neutrophils # 8.2 H Lymphocytes # 2.9 Monocytes # 0.8 Eosinophils # 0.3 Basophils # 0.0 Nucleated Red Blood Cells # 0.0 Sodium Level 139 Potassium Level 4.2 Chloride Level 102 Carbon Dioxide Level 28 Anion Gap 13 Blood Urea Nitrogen 9 Creatinine 0.79 Glucose Level 112 Calcium Level 9.1 Phosphorus Level 4.3 Magnesium Level 2.0 Medications Medications Current Medications Ondansetron HCl (Zofran Inj) 4 mg Q6H PRN IV NAUSEA AND/OR VOMITING Last administered on 08/27/16 23:36; Admin Dose 4 MG; Start 08/26/16 at 07:30 Acetaminophen (Tylenol Tab) 650 mg Q6H PRN PO PAIN LEVEL 1-3 OR FEVER Last administered on 09/02/16 02:06; Admin Dose 650 MG; Start 08/26/16 at 07:30 Morphine Sulfate (morphine) 2 mg Q4H PRN IV SEVERE PAIN LEVEL 7-10 Last administered on 08/27/16 23:36; Admin Dose 2 MG; Start 08/26/16 at 07:30 Docusate Sodium (Colace) 100 mg Q12 PRN PO CONSTIPATION; Start 08/26/16 at 07: 30 Zolpidem Tartrate (Ambien) 5 mg QHS PRN PO SLEEP Last administered on 09/06/16 02:17; Admin Dose 5 MG; Start 08/26/16 at 07:30 Eye Lubricant (Artificial Tears Oph) 2 drop QID BOTH EYES Last administered on 09/06/16 08:39; Admin Dose 2 DROP; Start 08/27/16 at 10:30 Acetaminophen/ Hydrocodone Bitart ([place] (5/325)) 1 tab Q4H PRN PO MODERATE PAIN LEVEL 4-6 Last administered on 09/06/16 11:01; Admin Dose 1 TAB; Start at 12:20 Carbamide Peroxide (Debrox Otic) 3 drop BID BOTH EARS Last administered on 08:39; Admin Dose 3 DROP; Start 08/28/16 at 13:30 Rifampin (Rifampin) 600 mg DAILY PO Last administered on 09/06/16 08:39; Admin Dose 600 MG; Start 08/28/16 at 13:00 Naproxen (Naprosyn) 500 mg BID PRN PO PAIN LEVEL 7-10; Start 08/30/16 at 12:00 Clarithromycin (Biaxin) 500 mg BID PO Last administered on 09/06/16 08:39; Admin Dose 500 MG; Start 08/30/16 at 21:00; Stop 09/09/16 at 20:59 IV Flush (NS 10 ml) 10 ml PRN PRN IV IV PROTOCOL Last administered on 09/04/16 20:45; Admin Dose 10 ML; Start 08/31/16 at 12:30 Vancomycin HCl (Vancomycin/ Hypromellose Oph) 1 drop QID LEFT EYE Last administered on 09/06/16 09:31; Admin Dose 1 DROP; Start 09/01/16 at 17:00 Famotidine 20 mg 20 mg BID PO Last administered on 09/06/16 08:39; Admin Dose 20 MG; Start 09/04/16 at 21:00 Vancomycin HCl/ Sodium Chloride (Vancocin/NS) 250 ml @ 125 mls/hr Q8H IVPB ; Start 09/06/16 at 20:00 Lactobacillus Acidophilus/ Rhamnosus (Culturelle) 1 cap BID PO ; Start 09/06/16 at 12:00; Status ACMILA DALY Sep 06, 2016 12:03
--- NOTE | 2016-09-06 12:48 | PDOCDIS ---
Discharge Instructions DIAGNOSIS Discharge Diagnosis MRSA sepsis CONDITION Patient Condition: Stable HOME CARE INSTRUCTIONS: Special Diet: Low fat low chol ACTIVITY: Activity Restrictions: Slowly Increase Activity Do not Drive FOLLOW UP/APPOINTMENTS Follow-up Plan Primary [address] Asaf Simpson in [address] Dillard in 2 weeks Ophthalmology as instructed Home health to continue for antibiotic care MARCIA FLORES MD Sep 06, 2016 12:47
[2016-09-06] MEDS ORDERED: CLAR500T PO (12:51)
[2016-09-06] MEDS ORDERED: VANCOMYCIN LEFT EYE (12:51)
[2016-09-06] MEDS ORDERED: HYPROMELLOSE LEFT EYE (12:51)
[2016-09-06] MEDS ORDERED: LACT1CAP57 PO (12:51)
[2016-09-06] MEDS ORDERED: POLY15DR11 BOTH EYES (12:51)
[2016-09-06] MEDS ORDERED: ACET325T40 PO (12:51)
[2016-09-06] MEDS ORDERED: NAPR-260 PO (12:51)
[2016-09-06] MEDS ORDERED: DEBROX BOTH EARS (12:51)
[2016-09-06] MEDS ORDERED: RIF120L PO (12:51)
[2016-09-06] MEDS ORDERED: IBUP800T25 PO (12:52)
--- NOTE | 2016-09-06 13:02 | DS ---
Date/Time of Note Date/Time of Note DATE: 09/06/16 TIME: 12:55 Discharge Summary Admission/Discharge Info Admit Date/Time Aug 26, 2016 at 03:14 Discharge Date/Time 09/06/16 Discharge Diagnosis MRSA sepsis Patient Condition: Stable Hx of Present Illness 40-year-old gentleman admitted with left preseptal cellulitis found to have MRSA bacteremia. Hospital Course 40-year-old gentleman admitted with left preseptal cellulitis found to have MRSA bacteremia. Source unknown. Possibly after a skin and soft tissue infection just below his right elbow. Patient seen by infectious disease, ENT in the hospital. Seen by ophthalmology. Underwent MOLLY by cardiology. No other etiologies for source. Sepsis stable. Presently stable and fit for discharge on antibiotics. Home health arranged. Follow-up as instructed. Vancomycin IV till the . Oral antibiotics including rifampin, clindamycin as instructed. And 3 ophthalmic drops for his left eye. Anti-inflammatory for pain. HIV panel negative. Vitals stable. Chronic bipolar disorder Possible headache disorder Anemia Prediabetes Left acute otitis media Cerumen impaction left ear Discharge plan Appointment primary [address] Asaf Simpson [address] Dillard 2 weeks Ophthalmology as instructed New medications: Culturelle 1 capsule daily Motrin 800 every 6 as needed Naproxen 50 twice daily Debrox left ear Akwa Tears left eye Vancomycin ophthalmic solution left eye Vancomycin IV until the Rifampin 600 mg twice daily Clarithromycin [address]: Soft tissue neck MPRESSION: 1. Left preseptal and periorbital soft tissue swelling extending along the left nasolacrimal ridge is consistent with cellulitis without evidence of abscess and no extension into the intraconal space. Clinical follow-up is recommended. 2. Linear hypodense filling defect within the proximal right internal jugular vein from the skull base to the level of the C2 vertebral body cannot exclude thrombus versus atypical flow related artifact. A followup right upper extremity venous ultrasound with attention to this area is recommended. Results are discussed by telephone with Dr. Rivera at 01:04 3. Incidental chronic-appearing sphenoid sinus disease. Physician Swati MRI brain:IMPRESSION: 1. No acute intracranial hemorrhage, infarction or mass. 2. A few small foci of white matter signal abnormality, nonspecific in appearance though perhaps reflective of complicated migraines, early microvascular ischemic disease, sequela from prior traumatic or inflammatory insults. 3. Mild left periorbital soft tissue swelling. 4. Partial opacification of left mastoid air cells. RPTAT: JJ .Aline Billings MD, MD Date Home Meds Active Scripts Ibuprofen* (Ibuprofen*) 800 Mg Tablet, 800 MG PO Q6H Y for PAIN for 10 Days, # 40 TAB Prov:MARCIA FLORES MD 09/06/16 Lactobacillus Rhamnosus* (Culturelle*) 1 Each Cap.sprink, 1 CAP PO BID for 20 Days, #40 CAP Prov:MARCIA FLORES MD 09/06/16 Polyvinyl Alcohol* ([place] Tears*) 1.4% - 15 Ml Drops, 2 DROP BOTH EYES QID for 10 Days, #1 BOTTLE 2 Refills Prov:MARCIA FLORES MD 09/06/16 Carbamide Peroxide* (Debrox*) 6.5% -15 Ml Drops, 3 DROP BOTH EARS BID for 7 Days , #1 BOTTLE 2 Refills Prov:MARCIA FLORES MD 09/06/16 Naproxen* (Naprosyn*) 500 Mg Tablet, 500 MG PO BID Y for PAIN LEVEL 7-10 for 7 Days, #20 TAB Prov:MARCIA FLORES MD 09/06/16 Acetaminophen (MAPAP) 325 Mg Tablet, 650 MG PO Q6H Y for PAIN LEVEL 1-3 OR FEVER for 7 Days, #1 TAB OTC Prov:MARCIA FLORES MD 09/06/16 [Vancomycin/Hypromellose Oph] 1 DROP SOLN No Conflict Check, 1 DROP LEFT EYE QID for 14 Days, #14 1 Refill Prov:MARCIA FLORES MD 09/06/16 Rifampin* (Rifampin* Pediatric IV Syringe) 10 Mg/Ml Susp, 600 MG PO DAILY for 10 Days, #10 1 Refill Prov:MARCIA FLORES MD 09/06/16 Clarithromycin* (Clarithromycin*) 500 Mg Tablet, 500 MG PO BID for 10 Days, #20 TAB 1 Refill Prov:MARCIA FLORES MD 09/06/16 Discontinued Scripts Hydrocodone/Acetaminophen ([place] 5-325 Tablet) 1 Each Tablet, 1 TAB PO Q6H Y for PAIN, #5 TAB Prov:ABBY SHELL PA-C 08/23/16 Follow-up Plan Primary [address] Asaf Simpson 1 week Home health to continue to care and IV vancomycin Primary Care Provider Care Physician No Primary Pending Labs Laboratory Tests Test 09/06/16 00:52 09/06/16 04:50 Vancomycin Level Trough 17.6ug/ml (10.0-20.0) White Blood Count 12.210^3/ul (4.8-10.8) Red Blood Count 4.0310^6/ul (4.70-6.10) Hemoglobin 11.4g/dl (14.0-18.0) Hematocrit 37.0% (42.0-52.0) Mean Corpuscular Volume 91.8fl (82.0-101.0) Mean Corpuscular Hemoglobin 28.3pg (29.0-33.0) Mean Corpuscular Hemoglobin Concent 30.8g/dl (32.0-37.0) Red Cell Distribution Width 15.3% (11.5-14.5) Platelet Count 05663^3/UL (140-415) Mean Platelet Volume 9.5fl (7.4-10.4) Neutrophils % 66.9% (39.0-77.0) Lymphocytes % 23.5% (15.0-51.0) Monocytes % 6.1% (0.0-11.0) Eosinophils % 2.0% (0.0-7.0) Basophils % 0.2% (0.0-2.0) Nucleated Red Blood Cells % 0.0/100WBC (0.0-0.0) Neutrophils # 8.210^3/ul (1.6-7.5) Lymphocytes # 2.910^3/ul (0.8-2.9) Monocytes # 0.810^3/ul (0.3-0.9) Eosinophils # 0.310^3/ul (0.0-0.5) Basophils # 0.010^3/ul (0.0-0.1) Nucleated Red Blood Cells # 0.010^3/ul (0.0-0.0) Sodium Level 139mmol/L (135-144) Potassium Level 4.2mmol/L (3.5-5.1) Chloride Level 102mmol/L (97-110) Carbon Dioxide Level 28mmol/L (21-31) Anion Gap 13 (8-16) Blood Urea Nitrogen 9mg/dl (7-20) Creatinine 0.79mg/dl (0.61-1.24) Glucose Level 112mg/dl (70-220) Calcium Level 9.1mg/dl (8.4-10.2) Phosphorus Level 4.3mg/dl (2.5-4.9) Magnesium Level 2.0mg/dl (1.7-2.5) MARCIA FLORES MD Sep 06, 2016 13:02
[2016-09-06] MEDS ORDERED: RIFA300C3 PO (14:59)
[2016-09-06] MEDS ORDERED: VANCOMYCIN 850 MG in SOD CHLORIDE 0.9% 250 ML IVPB SCH (20:00)
--- NOTE | 2016-09-09 15:44 | CONS ---
Date/Time of Note Date/Time of Note DATE: 09/09/16 TIME: 15:41 Assessment/Plan Assessment/Plan Chief Complaint/Hosp Course Patient was readmitted with worsening left periorbital cellulitis and swelling. He is alert, looks comfortable, no fevers Antimicrobials: Vancomycin Biaxin, rifampin, clindamycin Micro: Bld cx + MRSA, repeat blood cultures on September 01 are negative Indwelling: PICC line Physical examination: Well-developed well-nourished white male who is alert in no distress. Head atraumatic normocephalic. Left periorbital cellulitis, no drainage neck is supple trachea midline. Chest rise symmetrical breath sounds clear. S1-S2. Abdomen soft bowel tones present. Extremities without cyanosis edema. Assessment: 1. Status post MRSA bacteremia 2 to #2 ==>MOLLY and WBC labeled nuclear scan negative 2. Left periorbital/facial cellulitis 3. Chronic sinus disease 4. Bipolar disorder Plan: Clinically stable, will repeat blood cultures, keep patient on clindamycin and eyedrops, discontinue other antibiotics [facility] staff/pt Problems: Consultation Date/Type/Reason Admit Date/Time Aug 26, 2016 at 03:14 Type of Consultation: ID Referring Provider: MADELINE LEAL MD Exam/Review of Systems Vital Signs Vitals Vital Signs Date Time Temp Pulse Resp B/P Pulse Ox O2 Delivery O2 Flow Rate FiO2 09/06/16 07:38 98.3 107 20 136/93 96 09/05/16 14:15 Room Air 09/05/16 13:20 2.0 Results Result Diagram: 09/06/16 0450 09/06/16 0450 LUX LUONG NP Sep 09, 2016 15:44
== END 2016-09-06 16:10 | disposition home health service (06) | DRG 872 ==
LOC: FTE 21:24 → MS1 08-26 03:14
PROVIDERS: ADMIT Internal Medicine; ATTEND Internal Medicine
PROC: B24BZZ4 Ultrasonography of Heart with Aorta, Transesophageal (ICD-10-PCS; principal; 2016-08-26)
PROC: 02HV33Z Insertion of Infusion Device into Superior Vena Cava, Percutaneous Approach (ICD-10-PCS; 2016-08-31)
DX: A41.9 Sepsis, unspecified organism (principal); E87.1 Hypo-osmolality and hyponatremia; L03.213 Periorbital cellulitis; E78.5 Hyperlipidemia, unspecified; J32.9 Chronic sinusitis, unspecified; H02.846 Edema of left eye, unspecified eyelid; H66.92 Otitis media, unspecified, left ear; H61.22 Impacted cerumen, left ear; H92.03 Otalgia, bilateral; H70.92 Unspecified mastoiditis, left ear; F31.9 Bipolar disorder, unspecified; R51 Headache; R73.03 Prediabetes; D64.9 Anemia, unspecified; F17.200 Nicotine dependence, unspecified, uncomplicated; Z88.8 Allergy status to other drugs, medicaments and biological substances; Z88.0 Allergy status to penicillin; Z88.2 Allergy status to sulfonamides; Z91.013 Allergy to seafood
CPT/HCPCS: 36415; 36569; 70480; 70491; 70551; 71010; 76937; 78806; 80048; 80053; 80061; 80202; 82565; 82728; 83036; 83540; 83735; 84100; 84436; 84443; 84479; 84484; 84520; 85025; 85651; 86140; 86703; 87040; 87081; 93005; 93306; 93312; 93325; 93880; 93971; 96374; 96375; 96376; A9570; J1885; J2185; J2270; J2405; J2930; J3370; J7030; J7050; Q9967

== ENCOUNTER 2016-09-08 19:17 | Inpatient (IN) | payer MEDICAID ==
[~2016-09-08] VITALS: Ht 165.1 cm; Wt 73.0 kg
[~2016-09-08 19:17] MED LIST changes: +ACET325T40 PO; +CLAR500T PO; +DEBROX BOTH EARS; +HYPROMELLOSE LEFT EYE; +IBUP800T25 PO; +LACT1CAP57 PO; +NAPR-260 PO; +POLY15DR11 BOTH EYES; +RIF120L PO; +RIFA300C3 PO; +VANCOMYCIN LEFT EYE
[2016-09-08] MEDS ORDERED: VANCOMYCIN 1.25 GM in SOD CHLORIDE 0.9% 250 ML IVPB ONE (20:00)
--- NOTE | 2016-09-08 20:04 | ERA ---
ER Documentation Chief Complaint Date/Time DATE: 09/08/16 TIME: 20:03 Chief Complaint LEFT EYE SWELLING SINCE AM, HEADACHE X12 HRS HPI This is a 40-year-old male who was admitted recently with periorbital cellulitis and sepsis. The patient has been doing well at home getting intravenous vancomycin at home AT 1250 mg. The patient states that he felt like he "overdid it today" with onset of swelling to his left eye. He said his eye was normal this morning and now soreness will again like it did when he started having his MRSA periorbital cellulitis. Says that the cellulitis did get retro-orbital. Says he has a dull headache no fever no chest pain cough shortness of breath. He also has some vancomycin eardrops that he accidentally put into his left eye earlier this afternoon. No itching to the eye but does have some chronic blurry vision. ROS All systems reviewed and are negative except as per history of present illness. Medications Home Meds Active Scripts Rifampin* (Rifampin*) 300 Mg Capsule, 600 MG PO DAILY for 10 Days, CAP 1 Refill Prov:MARCIA FLORES MD 09/06/16 Ibuprofen* (Ibuprofen*) 800 Mg Tablet, 800 MG PO Q6H Y for PAIN for 10 Days, # 40 TAB Prov:MARCIA FLORES MD 09/06/16 Lactobacillus Rhamnosus* (Culturelle*) 1 Each Cap.sprink, 1 CAP PO BID for 20 Days, #40 CAP Prov:MARCIA FLORES MD 09/06/16 Polyvinyl Alcohol* (Akwa Tears*) 1.4% - 15 Ml Drops, 2 DROP BOTH EYES QID for 10 Days, #1 BOTTLE 2 Refills Prov:MARCIA FLORES MD 09/06/16 Carbamide Peroxide* (Debrox*) 6.5% -15 Ml Drops, 3 DROP BOTH EARS BID for 7 Days , #1 BOTTLE 2 Refills Prov:MARCIA FLORES MD 09/06/16 Naproxen* (Naprosyn*) 500 Mg Tablet, 500 MG PO BID Y for PAIN LEVEL 7-10 for 7 Days, #20 TAB Prov:MARCIA FLORES MD 09/06/16 Acetaminophen (MAPAP) 325 Mg Tablet, 650 MG PO Q6H Y for PAIN LEVEL 1-3 OR FEVER for 7 Days, #1 TAB OTC Prov:MARCIA FLORES MD 09/06/16 [Vancomycin/Hypromellose Oph] 1 DROP SOLN No Conflict Check, 1 DROP LEFT EYE QID for 14 Days, #14 1 Refill Prov:MARCIA FLORES MD 09/06/16 Rifampin* (Rifampin* Pediatric IV Syringe) 10 Mg/Ml Susp, 600 MG PO DAILY for 10 Days, #10 1 Refill Prov:MARCIA FLORES MD 09/06/16 Clarithromycin* (Clarithromycin*) 500 Mg Tablet, 500 MG PO BID for 10 Days, #20 TAB 1 Refill Prov:MARCIA FLORES MD 09/06/16 Discontinued Scripts Hydrocodone/Acetaminophen ([place] 5-325 Tablet) 1 Each Tablet, 1 TAB PO Q6H Y for PAIN, #5 TAB Prov:ABBY SHELL PA-C 08/23/16 Allergies Allergies: Coded Allergies: haloperidol (Verified Allergy, Severe, ANAPHALACTIC, 08/26/16) Fish Containing Products (Verified Allergy, Unknown, HIVES, 08/26/16) Penicillins (Verified Allergy, Unknown, 08/25/16) Sulfa (Sulfonamide Antibiotics) (Verified Allergy, Unknown, 08/25/16) shellfish derived (Verified Allergy, Unknown, HIVES, 08/26/16) PMhx/Soc History of Surgery: Yes (TWISTED ) Anesthesia Reaction: No Hx Neurological Disorder: No Hx Respiratory Disorders: No Hx Cardiac Disorders: No Hx Psychiatric Problems: No Hx Miscellaneous Medical Probl: No Hx Alcohol Use: Yes (OCC. SOCAL DRINK) Hx Substance Use: No Hx Tobacco Use: No FmHx Family History: No coronary disease Physical Exam Vitals Vital Signs Date Time Temp Pulse Resp B/P Pulse Ox O2 Delivery O2 Flow Rate FiO2 09/08/16 19:19 98.0 135 18 160/104 98 Physical Exam Const: Well-developed, well-nourished, nontoxic and well-appearing Head: Atraumatic, normocephalic Eyes: Normal Conjunctiva, PERRLA, EOMI, normal sclera, no nystagmus, there is some erythema and swelling to the left eye upper and lower lid. The erythema is a light pink color. There is no pain or reduction in the extraocular eye motion. ENT: Normal External Ears, Nose and Mouth, moist mucus membranes. Neck: Full range of motion. No meningismus, no lymphadenopathy. Resp: Clear to auscultation bilaterally, no wheezing, rhonchi, rales Cardio: Regular rate and rhythm, no murmurs, S1 S2 present Abd: Soft, non tender x 4, non distended. Normal bowel sounds, no guarding or rebound, no pulsitile abdominal masses or bruits Skin: No petechiae or rashes, no ecchymosis , no maculopapular rash Back: No midline or flank tenderness Ext: No cyanosis, or edema, FROM x 4, normal inspection, neurovascularly intact x 4 Neur: Awake and alert, STR 5/5 x 4, sensation intact x 4, no focal findings, cerebellum intact Psych: Normal Mood and Affect Result Diagram: 09/08/16201409/08/162014 Results 24 hrs Laboratory Tests Test 09/08/16 20:15 White Blood Count 11.610^3/ul Red Blood Count 3.9410^6/ul Hemoglobin 12.0g/dl Hematocrit 36.1% Mean Corpuscular Volume 91.6fl Mean Corpuscular Hemoglobin 30.5pg Mean Corpuscular Hemoglobin Concent 33.2g/dl Red Cell Distribution Width 14.7% Platelet Count 90102^3/UL Mean Platelet Volume 9.2fl Neutrophils % 67.7% Lymphocytes % 22.8% Monocytes % 6.3% Eosinophils % 2.2% Basophils % 0.3% Nucleated Red Blood Cells % 0.0/100WBC Neutrophils # 7.910^3/ul Lymphocytes # 2.610^3/ul Monocytes # 0.710^3/ul Eosinophils # 0.310^3/ul Basophils # 0.010^3/ul Nucleated Red Blood Cells # 0.010^3/ul Sodium Level 139mmol/L Potassium Level 3.7mmol/L Chloride Level 103mmol/L Carbon Dioxide Level 26mmol/L Anion Gap 14 Blood Urea Nitrogen 15mg/dl Creatinine 0.88mg/dl Glucose Level 125mg/dl Calcium Level 9.8mg/dl Total Bilirubin 0.0mg/dl Direct Bilirubin 0.00mg/dl Indirect Bilirubin 0.0mg/dl Aspartate Amino Transf (AST/SGOT) 23IU/L Alanine Aminotransferase (ALT/SGPT) 39IU/L Alkaline Phosphatase 86IU/L Total Protein 8.1g/dl Albumin 4.4g/dl Globulin 3.70g/dl Albumin/Globulin Ratio 1.18 Current Medications Medications (Trade) Dose Ordered Sig/Carmelita Route PRN Reason Start Time Stop Time Status Last Admin Dose Admin Vancomycin HCl/ Sodium Chloride (Vancocin/NS) 250 ml @ 83.333 mls/ hr ONCE ONCE IVPB 09/08/16 20:00 09/08/16 22:59 09/08/16 20:59 Hydromorphone HCl (Dilaudid) 1 mg ONCE STAT IV 09/08/16 20:35 09/08/16 20:36 DC Ondansetron HCl (Zofran Inj) 4 mg ONCE STAT IV 09/08/16 20:35 09/08/16 20:36 DC 09/08/16 20:58 Acetaminophen/ Hydrocodone Bitart ([place] (10/325)) 1 tab ONCE ONCE PO 09/08/16 21:00 09/08/16 21:01 DC 09/08/16 20:59 Procedures/MDM Patient will be admitted for beginning recurrence of his left periorbital cellulitis. We will get CT scan of the orbit. We will add Vanco and Clinda Departure Diagnosis: Primary Impression: Periorbital cellulitis Qualified Code: L03.213 - Periorbital cellulitis of left eye Condition: Stable TRIP SALAZAR DO Sep 08, 2016 20:04
[2016-09-08 20:22] LABS: ADD SCAN DIFF NO
[2016-09-08 20:23] LABS: BASOPHILS % 0.3 % (0.0-2.0); EOSINOPHILS # 0.3 10^3/ul (0.0-0.5); EOSINOPHILS % 2.2 % (0.0-7.0); HEMATOCRIT 36.1 % (42.0-52.0); LYMPHOCYTES # 2.6 10^3/ul (0.8-2.9); LYMPHOCYTES % 22.8 % (15.0-51.0); MEAN CORPUSCULAR HEMOGLOBIN 30.5 pg (29.0-33.0); MEAN CORPUSCULAR HGB CONC 33.2 g/dl (32.0-37.0); MEAN CORPUSCULAR VOLUME 91.6 fl (82.0-101.0); MEAN PLATELET VOLUME 9.2 fl (7.4-10.4); MONOCYTE # 0.7 10^3/ul (0.3-0.9); MONOCYTES % 6.3 % (0.0-11.0); NEUTROPHIL # 7.9 10^3/ul (1.6-7.5); NEUTROPHILS % 67.7 % (39.0-77.0); PLATELET COUNT 624 10^3/UL (140-415); RED BLOOD COUNT 3.94 10^6/ul (4.70-6.10); RED CELL DISTRIBUTION WIDTH 14.7 % (11.5-14.5); WHITE BLOOD COUNT 11.6 10^3/ul (4.8-10.8)
[2016-09-08] MEDS ORDERED: ONDANSETRON 4 MG INJ IV STA (20:35)
[2016-09-08] MEDS ORDERED: HYDROmorphONE 1 MG/ML SYG IV STA (20:35)
[2016-09-08 20:50] LABS: ALBUMIN 4.4 g/dl (3.3-4.9); ALBUMIN/GLOBULIN RATIO 1.18; CALCIUM 9.8 mg/dl (8.4-10.2); CREATININE 0.88 mg/dl (0.61-1.24); POTASSIUM 3.7 mmol/L (3.5-5.1); TOTAL PROTEIN 8.1 g/dl (6.1-8.1)
[2016-09-08] MEDS ORDERED: HYDROCODONE/APAP (10/325) TAB PO ONE (21:00)
[2016-09-08] MEDS ORDERED: SOD CHLORIDE 0.9% 1,000 ML IV SCH (21:18)
[2016-09-08] MEDS ORDERED: CLINDAMYCIN 900 MG/D5W (PMX) 50 ML IVPB ONE (21:30)
[2016-09-08] MEDS ORDERED: ONDANSETRON 4 MG INJ IV PRN (21:30)
[2016-09-08] MEDS ORDERED: ACETAMINOPHEN 325 MG TAB PO PRN (21:30)
[2016-09-08 22:05] VITALS: TEMP 97.1
--- NOTE | 2016-09-08 22:20 | RADRPT ---
PROCEDURE: CT Orbits without contrast. CLINICAL INDICATION: Left orbital swelling and pain. Evaluate for retro-orbital cellulitis. TECHNIQUE: A CT of the orbits was performed on a multi-slice CT scanner utilizing thin section axi al images without the use of intravenous contrast. Sagittal and coronal reformatted images were mad e. The images were reviewed on a PACS workstation. The CTDIvol is 8.99 mGy and the DLP is 314.33 mGy cm. One or more of the following dose reduction techniques were used: Automated exposure control. Adjustment of the mA and/or kV according to patient size. Use of iterative reconstruction technique. COMPARISON: CT soft tissue neck 08/26/2016. FINDINGS: There has been interval improvement of soft tissue thickening in the region of the left nasolacrimal sac; however significant worsening of preseptal soft tissue edema particularly involving the inferi or eyelid/infraorbital soft tissues. There is no retro-orbital inflammation. The osseous structures are intact with no fracture or osseous abnormality identified. The extraocular muscles and optic n erves are bilaterally symmetric and normal in appearance. The globes are unremarkable. No abnorm al attenuation of the intra or extraconal fat is identified. The sella turcica is unremarkable. The re is opacification of the left mastoid air cells and middle ear cavity. There is no evidence of co alescent mastoiditis. Middle ear ossicles are intact. There is minimal mucosal thickening in the ri ght sphenoid sinus. IMPRESSION: 1. Interval improvement of soft tissue thickening in the left medial orbit at the region of the naso lacrimal sac. 2. Interval worsening of preseptal soft tissue edema particularly involving the inferior eyelid/inf raorbital soft tissues. 3. No retro-orbital inflammatory changes to suggest orbital cellulitis. 4. Opacification of the left mastoid / middle ear cavities. 5. Minimal mucosal thickening in the right sphenoid sinus. Otherwise, paranasal sinuses are clear. RPTAT: HHO .Marry Keller MD, MD Date Time Electronically viewed and signed by .Marry Keller MD, on 09/08/2016 22:20 .O/
[2016-09-08 23:14] VITALS: Ht 165.1 cm; Wt 73.0 kg
[2016-09-09] MEDS ORDERED: BISACODYL (EC) 5 MG TAB PO PRN (01:00)
[2016-09-09] MEDS ORDERED: HYDROmorphONE 1 MG/ML SYG IV PRN (01:00)
[2016-09-09] MEDS ORDERED: ACETAMINOPHEN 325 MG TAB PO PRN (01:00)
[2016-09-09] MEDS ORDERED: VANCOMYCIN IV PER PHARMACY XX SCH (01:00)
[2016-09-09] MEDS ORDERED: NACL 0.9% 3 ML SYG IV SCH (01:00)
[2016-09-09] MEDS ORDERED: ONDANSETRON 4 MG INJ IV PRN (01:00)
[2016-09-09] MEDS ORDERED: DOCUSATE SODIUM 100 MG CAP PO PRN (01:00)
--- NOTE | 2016-09-09 01:07 | HP ---
Date/Time of Note Date/Time of Note DATE: 09/09/16 TIME: 01:05 Assessment/Plan VTE Prophylaxis VTE Prophylaxis Intervention: SCD's Lines/Catheters IV [facility]from [facility] PICC Line Central line still needed: Yes (IV antibiotics) Assessment/Plan Chief Complaint/Hosp Course This is a 40-year-old male being admitted to the [facility] floor for: #1. left periorbital cellulitis: There appears to be an exacerbation of his cellulitis. At the current time we will continue vancomycin and add on clindamycin. Will consult infectious disease for further recommendations. Patient does report blurry vision as well however this was also there when he first was diagnosed. Will consider ophthalmology consult if indicated. On the CT scan it does show areas of improvement as well as worsening of the cellulitis , however there are no signs of retro-orbital cellulitis on the CT scan. #2. Left AOM: Patient was seen by ENT during his previous admission. He started on clindamycin as well as Debrox for cerumen impaction. Will continue this regimen. #3. History of bipolar disorder. Continue to monitor, patient currently is not on any medications for this. #4. History of tension headache: Continue pain control #5 DVT and GI prophylaxis: SCDs, Protonix Further treatment strategy will be implemented as per the clinical course Problems: HPI/ROS Admit Date/Time Admit Date/Time Sep 08, 2016 at 21:18 Hx of Present Illness Chief complaint: Left eye cellulitis This is a 40-year-old male who was admitted recently with periorbital cellulitis and sepsis. The patient has been doing well at home getting intravenous vancomycin at home at 1250 mg via left arm PICC line. The patient states that he felt like he "overdid it today" with onset of swelling to his left eye. He said his eye was normal this morning and now has soreness and swelling again like it did when he started having his MRSA periorbital cellulitis. Says he has a dull headache no fever no chest pain cough shortness of breath. He also has some vancomycin eardrops that he accidentally put into his left eye earlier this afternoon. No itching to the eye but does have some chronic blurry vision. Allergies: FISH containing products, penicillin, sulfa, haloperidol, shellfish derived Medications: See MAR ROS Const: As per HPI Eyes : As per H ENT: No pain, sore throat, congestion, congestion, dysphagia or discharge Respiratory: No shortness of breath, cough, sputum, wheezing, or pleuritic pain Cardiovascular: No chest pain, palpitation, PND, or edema GI : no change in appetite, abdominal pain, nausea, vomiting, diarrhea, constipation, or change in the color his stool Genitourinary: No dysuria, hematuria, flank pain , discharge or CVA tenderness Musculoskeletal: No joint pain, back pain, neck pain, restricted range of motion in neck or joints Skin: As per HPI Neuro: No headache, dizziness, syncope, seizure, focal weakness Endocrine: No polyuria, polydipsia, temperature intolerance Psych: No hallucination, depression, anxiety or suicidal ideation PMH/Family/Social Past Medical History Bipolar disorder, tension headache for the past 2 months. Past Surgical History Past Surgical Hx: no surgical history Family History Significant Family History: no pertinent family hx Social History Alcohol Use: none Smoking Status: Former smoker Drug Use: none Exam/Review of Systems Vital Signs Vitals Vital Signs Date Time Temp Pulse Resp B/P Pulse Ox O2 Delivery O2 Flow Rate FiO2 09/08/16 22:05 97.1 95 20 148/79 100 Room Air Intake and Output 09/08/16 09/08/16 09/09/16 15:00 23:00 07:00 Intake Total 250 ml Balance 250 ml Exam Exam General: Patient is well-developed nourished does appear to be anxious HEENT: Lower eyelid erythema and swelling noted, patient did provide pictures of his eyelid from earlier in the day and it does appear to be improvement after coming into the ER receiving antibiotics. He does report double vision/ blurry vision, patient is able to track with his eyes Neck: Supple with full range of motion. No rigidity or meningismus Chest: Nontender Lungs: Clear to auscultation bilaterally no crackles rales or wheezing Heart: Normal S1-S2, Regular rhythm and rate. No murmur, S3, or S4 Abdomen: Soft , nontender, nondistended , bowel sounds are present. No guarding no rebound tenderness , No masses or organomegaly. No costovertebral temporal angle mass Extremities: Normal to inspection, no edema no cyanosis Neurologic: Normal mental status, speech normal, motor and sensory are intact, no focal weakness Additional Comments PROCEDURE: CT Orbits without contrast. CLINICAL INDICATION: Left orbital swelling and pain. Evaluate for retro- orbital cellulitis. TECHNIQUE: A CT of the orbits was performed on a multi-slice CT scanner utilizing thin section axial images without the use of intravenous contrast. Sagittal and coronal reformatted images were made. The images were reviewed on a PACS workstation. The CTDIvol is 8.99 mGy and the DLP is 314.33 mGycm. One or more of the following dose reduction techniques were used: Automated exposure control. Adjustment of the mA and/or kV according to patient size. Use of iterative reconstruction technique. COMPARISON: CT soft tissue neck 08/26/2016. FINDINGS: There has been interval improvement of soft tissue thickening in the region of the left nasolacrimal sac; however significant worsening of preseptal soft tissue edema particularly involving the inferior eyelid/infraorbital soft tissues. There is no retro-orbital inflammation. The osseous structures are intact with no fracture or osseous abnormality identified. The extraocular muscles and optic nerves are bilaterally symmetric and normal in appearance. The globes are unremarkable. No abnormal attenuation of the intra or extraconal fat is identified. The sella turcica is unremarkable. There is opacification of the left mastoid air cells and middle ear cavity. There is no evidence of coalescent mastoiditis. Middle ear ossicles are intact. There is minimal mucosal thickening in the right sphenoid sinus. IMPRESSION: 1. Interval improvement of soft tissue thickening in the left medial orbit at the region of the nasolacrimal sac. 2. Interval worsening of preseptal soft tissue edema particularly involving the inferior eyelid/infraorbital soft tissues. 3. No retro-orbital inflammatory changes to suggest orbital cellulitis. 4. Opacification of the left mastoid / middle ear cavities. 5. Minimal mucosal thickening in the right sphenoid sinus. Otherwise, paranasal sinuses are clear. Labs Result Diagram: 09/08/16201409/08/162014 Medications Medications Current Medications Sodium Chloride (NS) 1,000 ml @ 80 mls/hr [id number] IV ; Start 09/08/16 at 21:18; Stop 09/09/16 at 09:47 JIMENA SCHUSTER Sep 09, 2016 01:07
[2016-09-09 01:37] VITALS: BP 139/98; RESP 20
[2016-09-09] MEDS ORDERED: morphine 10 MG INJ IM PRN (02:30)
[2016-09-09] MEDS: ARTIFICIAL TEARS 15 ML OPH BOTH EYES SCH ×5 (03:13→21:09)
[2016-09-09] MEDS: HYDROCODONE/APAP (5/325) TAB PO PRN ×5 (03:15→21:10)
[2016-09-09] MEDS: PANTOPRAZOLE 40 MG INJ IV SCH (06:18)
[2016-09-09] MEDS: CLINDAMYCIN 600 MG/D5W (PMX) 50 ML IVPB SCH ×5 (08:00→23:51)
[2016-09-09 08:10] VITALS: BP 127/75; RESP 20
[2016-09-09] MEDS ORDERED: RIFAMPIN 300 MG CAP PO SCH (09:00)
[2016-09-09] MEDS ORDERED: RIFAMPIN PO SCH (09:00)
[2016-09-09] MEDS: CARBAMIDE PEROXIDE 6.5% 15ML OTIC BOTH EARS SCH ×2 (09:00→21:09)
[2016-09-09] MEDS ORDERED: CLARITHROMYCIN 500 MG TAB PO SCH (09:00)
[2016-09-09] MEDS ORDERED: VANCOMYCIN LEFT EYE SCH ×2 (09:00→13:00)
[2016-09-09] MEDS ORDERED: [UNRECOGNIZED DRUG - OTHER] LEFT EYE SCH (09:00)
[2016-09-09] MEDS: LACTOBACILLUS RHAMNOSUS CAP PO SCH ×2 (09:00→21:10)
[2016-09-09] MEDS ORDERED: VANCOMYCIN 1.25 GM in SOD CHLORIDE 0.9% 250 ML IVPB SCH (09:00)
--- NOTE | 2016-09-09 10:51 | PN ---
Date/Time of Note Date/Time of Note DATE: 09/09/16 TIME: 10:43 Assessment/Plan VTE Prophylaxis VTE Prophylaxis Intervention: SCD's Lines/Catheters IV [facility] PICC Line Central line still needed: Yes Assessment/Plan Chief Complaint/Hosp Course Assessment and plan: 40-year-old male being admitted to the [facility] floor for: #1. left periorbital cellulitis: There appears to be an exacerbation of his cellulitis. On the CT scan of the orbits it does show areas of improvement as well as worsening of the cellulitis, however there are no signs of retro- orbital cellulitis on the CT scan. - continue vancomycin and add on clindamycin, will add IV Solu-Medrol as well. - f/u infectious disease for further recommendations. Patient does report blurry vision as well however this was also there when he first was diagnosed. - f/u on ophthalmology consult -I spoke with him over the phone today, he recommends continue current steroids and IV antibiotics. No indications for topical antibiotics at this time. Will come see the patient in 24 hours as well. #2. Left AOM: Patient was seen by ENT during his previous admission. He started on clindamycin as well as Debrox for cerumen impaction. - Will continue this regimen. #3. History of bipolar disorder. Continue to monitor, patient currently is not on any medications for this. #4. History of tension headache: Continue pain control #5 DVT and GI prophylaxis: SCDs, Protonix Problems: Subjective 24 Hr Interval Summary Free Text/Dictation Patient still complaining of some double vision, but denies any discharge coming from the left eye. 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 Exam/Review of Systems Vital Signs Vitals Vital Signs Date Time Temp Pulse Resp B/P Pulse Ox O2 Delivery O2 Flow Rate FiO2 09/09/16 01:37 98.7 102 20 139/98 97 09/08/16 22:05 Room Air Intake and Output 09/08/16 09/08/16 09/09/16 15:00 23:00 07:00 Intake Total 250 ml Balance 250 ml Exam General: Patient is well-developed nourished does appear to be anxious HEENT: Lower eyelid erythema and swelling noted, patient did provide pictures of his eyelid from earlier in the day and it does appear to be improvement after coming into the ER receiving antibiotics. He does report double vision/ blurry vision, patient is able to track with his eyes Neck: Supple with full range of motion. No rigidity or meningismus Chest: Nontender Lungs: Clear to auscultation bilaterally no crackles rales or wheezing Heart: Normal S1-S2, Regular rhythm and rate. No murmur, S3, or S4 Abdomen: Soft , nontender, nondistended , bowel sounds are present. No guarding no rebound tenderness , No masses or organomegaly. No costovertebral temporal angle mass Extremities: Normal to inspection, no edema no cyanosis Neurologic: Normal mental status, speech normal, motor and sensory are intact, no focal weakness Results Result Diagram: 09/08/16201409/08/162014 Results 24 hrs Laboratory Tests Test 09/08/16 20:15 White Blood Count 11.6 H Red Blood Count 3.94 L Hemoglobin 12.0 L Hematocrit 36.1 L Mean Corpuscular Volume 91.6 Mean Corpuscular Hemoglobin 30.5 Mean Corpuscular Hemoglobin Concent 33.2 Red Cell Distribution Width 14.7 H Platelet Count 624 H Mean Platelet Volume 9.2 Neutrophils % 67.7 Lymphocytes % 22.8 Monocytes % 6.3 Eosinophils % 2.2 Basophils % 0.3 Nucleated Red Blood Cells % 0.0 Neutrophils # 7.9 H Lymphocytes # 2.6 Monocytes # 0.7 Eosinophils # 0.3 Basophils # 0.0 Nucleated Red Blood Cells # 0.0 Sodium Level 139 Potassium Level 3.7 Chloride Level 103 Carbon Dioxide Level 26 Anion Gap 14 Blood Urea Nitrogen 15 Creatinine 0.88 Glucose Level 125 Calcium Level 9.8 Total Bilirubin 0.0 L Direct Bilirubin 0.00 Indirect Bilirubin 0.0 Aspartate Amino Transf (AST/SGOT) 23 Alanine Aminotransferase (ALT/SGPT) 39 Alkaline Phosphatase 86 Total Protein 8.1 Albumin 4.4 Globulin 3.70 H Albumin/Globulin Ratio 1.18 Medications Medications Current Medications Ondansetron HCl (Zofran Inj) 4 mg Q6H PRN IV NAUSEA AND/OR VOMITING; Start 09/09 at 01:00 Acetaminophen (Tylenol Tab) 650 mg Q6H PRN PO PAIN LEVEL 1-3 OR FEVER; Start at 01:00 Hydromorphone HCl (Dilaudid) 0.5 mg Q4H PRN IV SEVERE PAIN LEVEL 7-10; Start at 01:00 Docusate Sodium (Colace) 100 mg Q12H PRN PO CONSTIPATION; Start 09/09/16 at 01: 00 Bisacodyl (Dulcolax) 5 mg DAILY PRN PO CONSTIPATION; Start 09/09/16 at 01:00 Pantoprazole 40 mg 40 mg DAILY@06 IV Last administered on 09/09/16 06:18; Admin Dose 40 MG; Start 09/09/16 at 06:00 Clindamycin HCl/ Dextrose (Cleocin 600 Mg/ D5W (Pmx)) 50 ml @ 50 mls/hr Q6 IVPB ; Start 09/09/16 at 08:00 Acetaminophen/ Hydrocodone Bitart ([place] (5/325)) 1 tab Q4H PRN PO PAIN Last administered on 09/09/16 09:00; Admin Dose 1 TAB; Start 09/09/16 at 02:30 Morphine Sulfate (morphine) 1 mg Q4H PRN IM SEVERE PAIN LEVEL 7-10; Start at 02:30 Carbamide Peroxide (Debrox Otic) 3 drop BID BOTH EARS Last administered on 09:00; Admin Dose 3 DROP; Start 09/09/16 at 09:00 Clarithromycin (Biaxin) 500 mg BID PO Last administered on 09/09/16 09:00; Admin Dose 500 MG; Start 09/09/16 at 09:00 Lactobacillus Acidophilus/ Rhamnosus (Culturelle) 1 cap BID PO Last administered on 09/09/16 09:00; Admin Dose 1 CAP; Start 09/09/16 at 09:00 Eye Lubricant (Artificial Tears Oph) 2 drop QID BOTH EYES Last administered on 09/09/16 09:00; Admin Dose 2 DROP; Start 09/09/16 at 02:30 Rifampin (Rifampin) 600 mg DAILY PO Last administered on 09/09/16 09:00; Admin Dose 600 MG; Start 09/09/16 at 09:00 Miscellaneous Information 1 drop 1 drop QID LEFT EYE ; Start 09/09/16 at 09:00; Status UNV Vancomycin HCl/ Sodium Chloride (Vancocin/NS) 250 ml @ 125 mls/hr Q8H IVPB ; Start 09/09/16 at 11:00 Miscellaneous Information (*Rx Drug Level Order Reminder*) VANCOMYCIN TROUGH AT 1000 ONCE ONCE XX ; Start 09/10/16 at 10:00; Stop 09/10/16 at 10:01 Methylprednisolone Sodium Succinate (Solu-Medrol) 80 mg Q8 IV ; Start 09/09/16 at 14:00 OSMANY WOOD Sep 09, 2016 10:51
[2016-09-09] MEDS ORDERED: VANCOMYCIN 850 MG in SOD CHLORIDE 0.9% 250 ML IVPB SCH (11:00)
[2016-09-09 12:57] VITALS: BP 122/75; RESP 20
[2016-09-09] MEDS ORDERED: HYPROMELLOSE LEFT EYE SCH (13:00)
[2016-09-09] MEDS: METHYLPREDNISOLONE 125 MG INJ IV SCH ×2 (13:13→21:10)
--- NOTE | 2016-09-09 15:48 | CONS ---
Date/Time of Note Date/Time of Note DATE: 09/09/16 TIME: 15:46 Assessment/Plan Assessment/Plan Chief Complaint/Hosp Course Patient was readmitted for worsening left periorbital cellulitis. He is alert awake looks comfortable denies pain no fevers Micro: blood cultures since September 01 negative Indwelling: PICC line Abx: Vanco Rifampin, Biaxin, clindamycin Physical examination: Well developed white man, in no distress + left sided periorbital/ facial swelling Neck: supple Chest: Clear to auscultation Abdomen: Soft, + BT Ext: no edema, no cyanosis Assessment: 1. Status post MRSA bacteremia 2 to #2===> MOLLY and WBC labeled nuclear scan negative 2. Left periorbital/facial cellulitis 3. Chronic sinus disease 4. Bipolar disorder Plan: Clinically stable, will repeat blood cultures, continue clindamycin and discontinue other antibiotics, continue eyedrops keep head of the bed elevated. Discussed with patient at length Problems: Consultation Date/Type/Reason Admit Date/Time Sep 08, 2016 at 21:18 Initial Consult Date Type of Consultation: ID Exam/Review of Systems Vital Signs Vitals Vital Signs Date Time Temp Pulse Resp B/P Pulse Ox O2 Delivery O2 Flow Rate FiO2 09/09/16 08:10 98.3 91 20 127/75 97 09/08/16 22:05 Room Air Intake and Output 09/08/16 09/08/16 09/09/16 15:00 23:00 07:00 Intake Total 250 ml Balance 250 ml Results Result Diagram: 09/08/16201409/08/162014 Results 24 hrs Laboratory Tests Test 09/08/16 20:15 White Blood Count 11.6 H Red Blood Count 3.94 L Hemoglobin 12.0 L Hematocrit 36.1 L Mean Corpuscular Volume 91.6 Mean Corpuscular Hemoglobin 30.5 Mean Corpuscular Hemoglobin Concent 33.2 Red Cell Distribution Width 14.7 H Platelet Count 624 H Mean Platelet Volume 9.2 Neutrophils % 67.7 Lymphocytes % 22.8 Monocytes % 6.3 Eosinophils % 2.2 Basophils % 0.3 Nucleated Red Blood Cells % 0.0 Neutrophils # 7.9 H Lymphocytes # 2.6 Monocytes # 0.7 Eosinophils # 0.3 Basophils # 0.0 Nucleated Red Blood Cells # 0.0 Sodium Level 139 Potassium Level 3.7 Chloride Level 103 Carbon Dioxide Level 26 Anion Gap 14 Blood Urea Nitrogen 15 Creatinine 0.88 Glucose Level 125 Calcium Level 9.8 Total Bilirubin 0.0 L Direct Bilirubin 0.00 Indirect Bilirubin 0.0 Aspartate Amino Transf (AST/SGOT) 23 Alanine Aminotransferase (ALT/SGPT) 39 Alkaline Phosphatase 86 Total Protein 8.1 Albumin 4.4 Globulin 3.70 H Albumin/Globulin Ratio 1.18 Medications Medications Current Medications Ondansetron HCl (Zofran Inj) 4 mg Q6H PRN IV NAUSEA AND/OR VOMITING; Start 09/09 at 01:00 Acetaminophen (Tylenol Tab) 650 mg Q6H PRN PO PAIN LEVEL 1-3 OR FEVER; Start at 01:00 Hydromorphone HCl (Dilaudid) 0.5 mg Q4H PRN IV SEVERE PAIN LEVEL 7-10; Start at 01:00 Docusate Sodium (Colace) 100 mg Q12H PRN PO CONSTIPATION; Start 09/09/16 at 01: 00 Bisacodyl (Dulcolax) 5 mg DAILY PRN PO CONSTIPATION; Start 09/09/16 at 01:00 Pantoprazole 40 mg 40 mg DAILY@06 IV Last administered on 09/09/16 06:18; Admin Dose 40 MG; Start 09/09/16 at 06:00 Clindamycin HCl/ Dextrose (Cleocin 600 Mg/ D5W (Pmx)) 50 ml @ 50 mls/hr Q6 IVPB Last administered on 09/09/16 14:33; Admin Dose 50 MLS/HR; Start 09/09/16 at 08 :00 Acetaminophen/ Hydrocodone Bitart ([place] (5/325)) 1 tab Q4H PRN PO PAIN Last administered on 09/09/16 13:10; Admin Dose 1 TAB; Start 09/09/16 at 02:30 Morphine Sulfate (morphine) 1 mg Q4H PRN IM SEVERE PAIN LEVEL 7-10; Start at 02:30 Carbamide Peroxide (Debrox Otic) 3 drop BID BOTH EARS Last administered on 09:00; Admin Dose 3 DROP; Start 09/09/16 at 09:00 Clarithromycin (Biaxin) 500 mg BID PO Last administered on 09/09/16 09:00; Admin Dose 500 MG; Start 09/09/16 at 09:00 Lactobacillus Acidophilus/ Rhamnosus (Culturelle) 1 cap BID PO Last administered on 09/09/16 09:00; Admin Dose 1 CAP; Start 09/09/16 at 09:00 Eye Lubricant (Artificial Tears Oph) 2 drop QID BOTH EYES Last administered on 09/09/16 13:13; Admin Dose 2 DROP; Start 09/09/16 at 02:30 Rifampin 600 mg 600 mg DAILY PO Last administered on 09/09/16 09:00; Admin Dose 600 MG; Start 09/09/16 at 09:00 Vancomycin HCl/ Sodium Chloride (Vancocin/NS) 250 ml @ 125 mls/hr Q8H IVPB Last administered on 09/09/16 11:31; Admin Dose 125 MLS/HR; Start 09/09/16 at 11: 00 Miscellaneous Information (*Rx Drug Level Order Reminder*) VANCOMYCIN TROUGH AT 1000 ONCE ONCE XX ; Start 09/10/16 at 10:00; Stop 09/10/16 at 10:01 Methylprednisolone Sodium Succinate (Solu-Medrol) 80 mg Q8 IV Last administered on 09/09/16 13:13; Admin Dose 80 MG; Start 09/09/16 at 14:00 Vancomycin HCl (Vancomycin/ Hypromellose Oph) 1 drop QID LEFT EYE ; Start at 13:00; Status Future Hold LUX LUONG NP Sep 09, 2016 15:48
[2016-09-09 21:00] VITALS: BP 129/81; PULSE 92; RESP 20
[2016-09-09] MEDS ORDERED: ZOLPIDEM 5 MG TAB PO ONE (21:00)
[2016-09-10] MEDS: HYDROCODONE/APAP (5/325) TAB PO PRN ×6 (01:13→23:04)
[2016-09-10 02:00] VITALS: BP 124/72; PULSE 78; RESP 20
[2016-09-10] MEDS: METHYLPREDNISOLONE 125 MG INJ IV SCH ×2 (05:46→13:12)
[2016-09-10] MEDS: PANTOPRAZOLE 40 MG INJ IV SCH (05:46)
[2016-09-10] MEDS: CLINDAMYCIN 600 MG/D5W (PMX) 50 ML IVPB SCH ×4 (05:47→23:29)
[2016-09-10 06:11] LABS: ADD SCAN DIFF NO
[2016-09-10 06:48] LABS: BASOPHILS % 0.2 % (0.0-2.0); EOSINOPHILS % 0.2 % (0.0-7.0); HEMATOCRIT 35.4 % (42.0-52.0); HEMOGLOBIN 11.3 g/dl (14.0-18.0); LYMPHOCYTES # 2.3 10^3/ul (0.8-2.9); LYMPHOCYTES % 20.8 % (15.0-51.0); MEAN CORPUSCULAR HEMOGLOBIN 29.3 pg (29.0-33.0); MEAN CORPUSCULAR HGB CONC 31.9 g/dl (32.0-37.0); MEAN CORPUSCULAR VOLUME 91.7 fl (82.0-101.0); MEAN PLATELET VOLUME 9.4 fl (7.4-10.4); MONOCYTE # 0.7 10^3/ul (0.3-0.9); NEUTROPHIL # 7.9 10^3/ul (1.6-7.5); NEUTROPHILS % 72.2 % (39.0-77.0); PLATELET COUNT 579 10^3/UL (140-415); RED BLOOD COUNT 3.86 10^6/ul (4.70-6.10); RED CELL DISTRIBUTION WIDTH 14.6 % (11.5-14.5); WHITE BLOOD COUNT 10.9 10^3/ul (4.8-10.8)
[2016-09-10 06:55] LABS: ALBUMIN 4.5 g/dl (3.3-4.9); ALBUMIN/GLOBULIN RATIO 1.25; CALCIUM 9.9 mg/dl (8.4-10.2); CREATININE 0.76 mg/dl (0.61-1.24); MAGNESIUM 1.9 mg/dl (1.7-2.5); POTASSIUM 4.2 mmol/L (3.5-5.1); TOTAL PROTEIN 8.1 g/dl (6.1-8.1)
[2016-09-10 07:41] VITALS: BP 132/86; RESP 20
[2016-09-10] MEDS: LACTOBACILLUS RHAMNOSUS CAP PO SCH ×2 (09:01→20:52)
[2016-09-10] MEDS: ARTIFICIAL TEARS 15 ML OPH BOTH EYES SCH ×4 (09:01→20:10)
[2016-09-10] MEDS: CARBAMIDE PEROXIDE 6.5% 15ML OTIC BOTH EARS SCH ×2 (09:01→20:53)
--- NOTE | 2016-09-10 13:21 | CONS ---
Date/Time of Note Date/Time of Note DATE: 09/10/16 TIME: 13:20 Assessment/Plan Assessment/Plan Chief Complaint/Hosp Course No acute changes overnight, patient is alert feels better Micro: blood cultures since September 01 negative Indwelling: PICC line Abx: Clindamycin Physical examination: Well developed white man, in no distress + left sided periorbital/ facial swelling Neck: supple Chest: Clear to auscultation Abdomen: Soft, + BT Ext: no edema, no cyanosis Assessment: 1. Status post MRSA bacteremia 2 to #2===> MOLLY and WBC labeled nuclear scan negative 2. Left periorbital/facial cellulitis 3. Chronic sinus disease 4. Bipolar disorder Plan: Clinically stable, pending repeat blood cultures, continue IV clindamycin till September 15, continue eyedrops as per ophthalmology recommendations keep head of the bed elevated. Discussed with patient at length Problems: Consultation Date/Type/Reason Admit Date/Time Sep 08, 2016 at 21:18 Type of Consultation: ID Exam/Review of Systems Vital Signs Vitals Vital Signs Date Time Temp Pulse Resp B/P Pulse Ox O2 Delivery O2 Flow Rate FiO2 09/10/16 07:41 97.7 92 20 132/86 96 09/10/16 02:00 Room Air Intake and Output 09/09/16 09/09/16 09/10/16 15:00 23:00 07:00 Intake Total 400 ml 580 ml Balance 400 ml 580 ml Results Result Diagram: 09/10/16 0540 09/10/16 0540 Results 24 hrs Laboratory Tests Test 09/10/16 05:40 White Blood Count 10.9 H Red Blood Count 3.86 L Hemoglobin 11.3 L Hematocrit 35.4 L Mean Corpuscular Volume 91.7 Mean Corpuscular Hemoglobin 29.3 Mean Corpuscular Hemoglobin Concent 31.9 L Red Cell Distribution Width 14.6 H Platelet Count 579 H Mean Platelet Volume 9.4 Neutrophils % 72.2 Lymphocytes % 20.8 Monocytes % 6.0 Eosinophils % 0.2 Basophils % 0.2 Nucleated Red Blood Cells % 0.0 Neutrophils # 7.9 H Lymphocytes # 2.3 Monocytes # 0.7 Eosinophils # 0.0 Basophils # 0.0 Nucleated Red Blood Cells # 0.0 Sodium Level 139 Potassium Level 4.2 Chloride Level 101 Carbon Dioxide Level 28 Anion Gap 14 Blood Urea Nitrogen 14 Creatinine 0.76 Glucose Level 144 Calcium Level 9.9 Magnesium Level 1.9 Total Bilirubin 0.0 L Direct Bilirubin 0.00 Indirect Bilirubin 0.0 Aspartate Amino Transf (AST/SGOT) 15 Alanine Aminotransferase (ALT/SGPT) 35 Alkaline Phosphatase 79 Total Protein 8.1 Albumin 4.5 Globulin 3.60 H Albumin/Globulin Ratio 1.25 Medications Medications Current Medications Ondansetron HCl (Zofran Inj) 4 mg Q6H PRN IV NAUSEA AND/OR VOMITING; Start 09/09 at 01:00 Acetaminophen (Tylenol Tab) 650 mg Q6H PRN PO PAIN LEVEL 1-3 OR FEVER Last administered on 09/09/16 23:04; Admin Dose 650 MG; Start 09/09/16 at 01:00 Hydromorphone HCl (Dilaudid) 0.5 mg Q4H PRN IV SEVERE PAIN LEVEL 7-10; Start at 01:00 Docusate Sodium (Colace) 100 mg Q12H PRN PO CONSTIPATION; Start 09/09/16 at 01: 00 Bisacodyl (Dulcolax) 5 mg DAILY PRN PO CONSTIPATION; Start 09/09/16 at 01:00 Pantoprazole 40 mg 40 mg DAILY@06 IV Last administered on 09/10/16 05:46; Admin Dose 40 MG; Start 09/09/16 at 06:00 Clindamycin HCl/ Dextrose (Cleocin 600 Mg/ D5W (Pmx)) 50 ml @ 50 mls/hr Q6 IVPB Last administered on 09/10/16 05:47; Admin Dose 50 MLS/HR; Start 09/09/16 at 08:00 Acetaminophen/ Hydrocodone Bitart ([place] (5/325)) 1 tab Q4H PRN PO PAIN Last administered on 09/10/16 10:01; Admin Dose 1 TAB; Start 09/09/16 at 02:30 Morphine Sulfate (morphine) 1 mg Q4H PRN IM SEVERE PAIN LEVEL 7-10; Start at 02:30 Carbamide Peroxide (Debrox Otic) 3 drop BID BOTH EARS Last administered on 09/10 09:01; Admin Dose 3 DROP; Start 09/09/16 at 09:00 Lactobacillus Acidophilus/ Rhamnosus (Culturelle) 1 cap BID PO Last administered on 09/10/16 09:01; Admin Dose 1 CAP; Start 09/09/16 at 09:00 Eye Lubricant (Artificial Tears Oph) 2 drop QID BOTH EYES Last administered on 09/10/16 09:01; Admin Dose 2 DROP; Start 09/09/16 at 02:30 Methylprednisolone Sodium Succinate (Solu-Medrol) 80 mg Q8 IV Last administered on 09/10/16 05:46; Admin Dose 80 MG; Start 09/09/16 at 14:00 Vancomycin HCl (Vancomycin/ Hypromellose Oph) 1 drop QID LEFT EYE ; Start at 13:00; Status Future Hold LUX LUONG NP Sep 10, 2016 13:21
--- NOTE | 2016-09-10 15:33 | PN ---
Date/Time of Note Date/Time of Note DATE: 09/10/16 TIME: 15:30 Assessment/Plan VTE Prophylaxis VTE Prophylaxis Intervention: SCD's Lines/Catheters IV Catheter Type (from Nrs): PICC Line Central line still needed: Yes Assessment/Plan Assessment/Plan 40 yo M admitted recently for MRSA bacteremia and preorbital cellulitis. Returned after being home for <48 hours for recurrence of L eye lower eyelid swelling, etio unclear. #L lower eyelid swelling: d/dx includes dependent edema from laying flat v allergic reaction to new pillow v other now resolved-->stop steroids #MRSA bacteremia: cont abx as per ID. Changed from vanc to clinda #bipolar: cont home meds Pt will likely be medically stable for discharge by tomorrow. will need to talk to CM about continuing HH Subjective 24 Hr Interval Summary Free Text/Dictation Patient very anxious. Lots of questions about why his L eye swelled up. Pt seen by optho earlier today, states he was told there's no evidence of infection behind his eye, blurred vision likely 2/2 preorbital cellulitis for which he is still being treated Of note, pt states his bought him a new pillow just prior to his return home. No other new exposures. Exam/Review of Systems Vital Signs Vitals Vital Signs Date Time Temp Pulse Resp B/P Pulse Ox O2 Delivery O2 Flow Rate FiO2 09/10/16 07:41 97.7 92 20 132/86 96 09/10/16 02:00 Room Air Intake and Output 09/09/16 09/09/16 09/10/16 15:00 23:00 07:00 Intake Total 400 ml 580 ml Balance 400 ml 580 ml Exam anxious, sitting up in bed mild erythema below L eye, MINIMAL SWELLING no mrg lungs clear abd soft CT results reviewed Results Result Diagram: 09/10/16 0540 09/10/16 0540 Results 24 hrs Laboratory Tests Test 09/10/16 05:40 White Blood Count 10.9 H Red Blood Count 3.86 L Hemoglobin 11.3 L Hematocrit 35.4 L Mean Corpuscular Volume 91.7 Mean Corpuscular Hemoglobin 29.3 Mean Corpuscular Hemoglobin Concent 31.9 L Red Cell Distribution Width 14.6 H Platelet Count 579 H Mean Platelet Volume 9.4 Neutrophils % 72.2 Lymphocytes % 20.8 Monocytes % 6.0 Eosinophils % 0.2 Basophils % 0.2 Nucleated Red Blood Cells % 0.0 Neutrophils # 7.9 H Lymphocytes # 2.3 Monocytes # 0.7 Eosinophils # 0.0 Basophils # 0.0 Nucleated Red Blood Cells # 0.0 Sodium Level 139 Potassium Level 4.2 Chloride Level 101 Carbon Dioxide Level 28 Anion Gap 14 Blood Urea Nitrogen 14 Creatinine 0.76 Glucose Level 144 Calcium Level 9.9 Magnesium Level 1.9 Total Bilirubin 0.0 L Direct Bilirubin 0.00 Indirect Bilirubin 0.0 Aspartate Amino Transf (AST/SGOT) 15 Alanine Aminotransferase (ALT/SGPT) 35 Alkaline Phosphatase 79 Total Protein 8.1 Albumin 4.5 Globulin 3.60 H Albumin/Globulin Ratio 1.25 Medications Medications Current Medications Ondansetron HCl (Zofran Inj) 4 mg Q6H PRN IV NAUSEA AND/OR VOMITING; Start 09/09 at 01:00 Acetaminophen (Tylenol Tab) 650 mg Q6H PRN PO PAIN LEVEL 1-3 OR FEVER Last administered on 09/09/16 23:04; Admin Dose 650 MG; Start 09/09/16 at 01:00 Hydromorphone HCl (Dilaudid) 0.5 mg Q4H PRN IV SEVERE PAIN LEVEL 7-10; Start at 01:00 Docusate Sodium (Colace) 100 mg Q12H PRN PO CONSTIPATION; Start 09/09/16 at 01: 00 Bisacodyl 5 mg 5 mg DAILY PRN PO CONSTIPATION; Start 09/09/16 at 01:00 Clindamycin HCl/ Dextrose (Cleocin 600 Mg/ D5W (Pmx)) 50 ml @ 50 mls/hr Q6 IVPB Last administered on 09/10/16 13:22; Admin Dose 50 MLS/HR; Start 09/09/16 at 08:00 Acetaminophen/ Hydrocodone Bitart ([place] (5/325)) 1 tab Q4H PRN PO PAIN Last administered on 09/10/16 14:10; Admin Dose 1 TAB; Start 09/09/16 at 02:30 Morphine Sulfate (morphine) 1 mg Q4H PRN IM SEVERE PAIN LEVEL 7-10; Start at 02:30 Carbamide Peroxide (Debrox Otic) 3 drop BID BOTH EARS Last administered on 09/10 09:01; Admin Dose 3 DROP; Start 09/09/16 at 09:00 Lactobacillus Acidophilus/ Rhamnosus (Culturelle) 1 cap BID PO Last administered on 09/10/16 09:01; Admin Dose 1 CAP; Start 09/09/16 at 09:00 Eye Lubricant (Artificial Tears Oph) 2 drop QID BOTH EYES Last administered on 09/10/16 13:13; Admin Dose 2 DROP; Start 09/09/16 at 02:30 Vancomycin HCl (Vancomycin/ Hypromellose Oph) 1 drop QID LEFT EYE ; Start at 13:00; Status Future Hold Pantoprazole (Protonix Tab) 40 mg DAILY@06 PO ; Start 09/11/16 at 06:00 MADELINE LEAL MD Sep 10, 2016 15:33
[2016-09-10] MEDS ORDERED: ALTEPLASE (CATHFLO) 2 MG INJ CATHETER PRN (16:00)
[2016-09-10] MEDS ORDERED: LORAZEPAM 0.5 MG TAB PO ONE ×2 (18:30→23:30)
[2016-09-10 20:00] VITALS: BP 135/94; PULSE 99; RESP 16
[2016-09-10] MEDS ORDERED: predniSONE 20 MG TAB PO ONE (20:30)
[2016-09-10] MEDS ORDERED: ZOLPIDEM 5 MG TAB PO ONE (21:00)
[2016-09-10] MEDS ORDERED: LORAZEPAM 2 MG INJ IV ONE (23:00)
[2016-09-11] MEDS: HYDROCODONE/APAP (5/325) TAB PO PRN ×2 (04:34→09:26)
[2016-09-11] MEDS: CLINDAMYCIN 600 MG/D5W (PMX) 50 ML IVPB SCH ×2 (05:45→12:00)
[2016-09-11] MEDS ORDERED: PANTOPRAZOLE (EC) 40 MG TAB PO SCH (06:00)
[2016-09-11 07:32] VITALS: BP 143/86; RESP 20
[2016-09-11] MEDS: LACTOBACILLUS RHAMNOSUS CAP PO SCH (09:46)
[2016-09-11] MEDS: ARTIFICIAL TEARS 15 ML OPH BOTH EYES SCH (09:46)
[2016-09-11] MEDS: CARBAMIDE PEROXIDE 6.5% 15ML OTIC BOTH EARS SCH (09:47)
[2016-09-11] MEDS ORDERED: LACT1CAP57 PO (11:56)
[2016-09-11] MEDS ORDERED: HYDR-3498 PO (11:56)
--- NOTE | 2016-09-11 11:59 | PDOCDIS ---
Discharge Instructions DIAGNOSIS Discharge Diagnosis periorbital cellulitis MRSA bacteremia CONDITION Patient Condition: Stable HOME CARE INSTRUCTIONS: Special Diet: Regular Diet ACTIVITY: Activity Restrictions: No Restrictions Slowly Increase Activity Rest between Activity FOLLOW UP/APPOINTMENTS Follow-up Plan Name, Degree : Cj Cruz MD Specialty : Ophthalmology Office Address : [address] [place], [place] [id number] Office Office DONNIE QUINTANILLA Sep 11, 2016 11:59
[2016-09-11] MEDS ORDERED: PRED10TA PO (12:04)
[2016-09-11] MEDS ORDERED: IBUP800T25 PO (12:39)
--- NOTE | 2016-09-11 12:42 | DS ---
Date/Time of Note Date/Time of Note DATE: 09/11/16 TIME: 12:40 Discharge Summary Admission/Discharge Info Admit Date/Time Sep 08, 2016 at 21:18 Discharge Date/Time 09/11/16 Discharge Diagnosis * periorbital cellulitis * MRSA bacteremia Patient Condition: Stable Hx of Present Illness Chief complaint: Left eye cellulitis This is a 40-year-old male who was admitted recently with periorbital cellulitis and sepsis. The patient has been doing well at home getting intravenous vancomycin at home at 1250 mg via left arm PICC line. The patient states that he felt like he "overdid it today" with onset of swelling to his left eye. He said his eye was normal this morning and now has soreness and swelling again like it did when he started having his MRSA periorbital cellulitis. Says he has a dull headache no fever no chest pain cough shortness of breath. He also has some vancomycin eardrops that he accidentally put into his left eye earlier this afternoon. No itching to the eye but does have some chronic blurry vision. Allergies: FISH containing products, penicillin, sulfa, haloperidol, shellfish derived Medications: See [facility] Home Meds Active Scripts Ibuprofen* (Ibuprofen*) 800 Mg Tablet, 800 MG PO Q6H Y for PAIN for 10 Days, # 21 TAB Prov:DONNIE QUINTANILLA 09/11/16 Prednisone (Prednisone) 10 Mg Tab, 10 MG PO DAILY, #21 TAB take 6 pills tomorrow take 5 pills on the next day take 4 pills on the next day take 3 pills on the next day take 2 pills on the next day take 1 pill on the next day then stop Prov:DONNIE QUINTANILLA 09/11/16 Lactobacillus Rhamnosus* (Culturelle*) 1 Each Cap.sprink, 1 CAP PO BID for 10 Days, CAP Prov:DONNIE QUINTANILLA 09/11/16 Rifampin* (Rifampin*) 300 Mg Capsule, 600 MG PO DAILY for 10 Days, CAP 1 Refill Prov:MARCIA FLORES MD 09/06/16 Lactobacillus Rhamnosus* (Culturelle*) 1 Each Cap.sprink, 1 CAP PO BID for 20 Days, #40 CAP Prov:MARCIA FLORES MD 09/06/16 Polyvinyl Alcohol* ([place] Tears*) 1.4% - 15 Ml Drops, 2 DROP BOTH EYES QID for 10 Days, #1 BOTTLE 2 Refills Prov:MARCIA FLORES MD 09/06/16 Carbamide Peroxide* (Debrox*) 6.5% -15 Ml Drops, 3 DROP BOTH EARS BID for 7 Days , #1 BOTTLE 2 Refills Prov:MARCIA FLORES MD 09/06/16 Naproxen* (Naprosyn*) 500 Mg Tablet, 500 MG PO BID Y for PAIN LEVEL 7-10 for 7 Days, #20 TAB Prov:MARCIA FLORES MD 09/06/16 Acetaminophen (MAPAP) 325 Mg Tablet, 650 MG PO Q6H Y for PAIN LEVEL 1-3 OR FEVER for 7 Days, #1 TAB OTC Prov:MARCIA FLORES MD 09/06/16 [Vancomycin/Hypromellose Oph] 1 DROP SOLN No Conflict Check, 1 DROP LEFT EYE QID for 14 Days, #14 1 Refill Prov:MARCIA FOLRES MD 09/06/16 Rifampin* (Rifampin* Pediatric IV Syringe) 10 Mg/Ml Susp, 600 MG PO DAILY for 10 Days, #10 1 Refill Prov:MARCIA FLORES MD 09/06/16 Clarithromycin* (Clarithromycin*) 500 Mg Tablet, 500 MG PO BID for 10 Days, #20 TAB 1 Refill Prov:MARCIA FLORES MD 09/06/16 Discontinued Scripts Hydrocodone/Acetaminophen ([place] 5-325 Tablet) 1 Each Tablet, 1 TAB PO Q6H Y for PAIN, #5 TAB Prov:ABBY SHELL PA-C 08/23/16 Primary Care Provider Care Physician No Primary Time spent on discharge: > 30 minutes DONNIE QUINTANILLA Sep 11, 2016 12:42
--- NOTE | 2016-09-11 13:33 | CONS ---
Date/Time of Note Date/Time of Note DATE: 09/11/16 TIME: 13:31 Assessment/Plan Assessment/Plan Chief Complaint/Hosp Course No acute changes overnight, patient is alert, feels better, left facial swelling resolving Micro: blood cultures since September 01 negative Indwelling: PICC line Abx: Clindamycin Physical examination: Well developed white man, in no distress + left sided periorbital/ facial swelling Neck: supple Chest: Clear to auscultation Abdomen: Soft, + BT Ext: no edema, no cyanosis Assessment: 1. Status post MRSA bacteremia 2 to #2===> MOLLY and WBC labeled nuclear scan negative 2. Left periorbital/facial cellulitis==> resolving 3. Chronic sinus disease 4. Bipolar disorder Plan: Clinically stable, wants to go home on PO abx, will send him on PO Clindamycin for 7 more days, pt to f/u with ophthalmology for further recommendations Discussed with patient and his at length Problems: Consultation Date/Type/Reason Admit Date/Time Sep 08, 2016 at 21:18 Type of Consultation: ID Exam/Review of Systems Vital Signs Vitals Vital Signs Date Time Temp Pulse Resp B/P Pulse Ox O2 Delivery O2 Flow Rate FiO2 09/11/16 07:32 97.6 103 20 143/86 97 09/10/16 20:00 Room Air Intake and Output 09/10/16 09/10/16 09/11/16 15:00 23:00 07:00 Intake Total 100 ml 50 ml Balance 100 ml 50 ml Results Result Diagram: 09/10/16 0540 09/10/16 0540 Medications Medications Current Medications Ondansetron HCl (Zofran Inj) 4 mg Q6H PRN IV NAUSEA AND/OR VOMITING; Start 09/09 at 01:00 Acetaminophen (Tylenol Tab) 650 mg Q6H PRN PO PAIN LEVEL 1-3 OR FEVER Last administered on 09/09/16t 23:04; Admin Dose 650 MG; Start 09/09/16 at 01:00 Hydromorphone HCl (Dilaudid) 0.5 mg Q4H PRN IV SEVERE PAIN LEVEL 7-10; Start at 01:00 Docusate Sodium (Colace) 100 mg Q12H PRN PO CONSTIPATION; Start 09/09/16 at 01: 00 Bisacodyl 5 mg 5 mg DAILY PRN PO CONSTIPATION; Start 09/09/16 at 01:00 Clindamycin HCl/ Dextrose (Cleocin 600 Mg/ D5W (Pmx)) 50 ml @ 50 mls/hr Q6 IVPB Last administered on 09/11/16 05:45; Admin Dose 50 MLS/HR; Start 09/09/16 at 08:00 Acetaminophen/ Hydrocodone Bitart ([place] (5/325)) 1 tab Q4H PRN PO PAIN Last administered on 09/11/16 09:26; Admin Dose 1 TAB; Start 09/09/16 at 02:30 Morphine Sulfate (morphine) 1 mg Q4H PRN IM SEVERE PAIN LEVEL 7-10; Start at 02:30 Carbamide Peroxide (Debrox Otic) 3 drop BID BOTH EARS Last administered on 09/11 09:47; Admin Dose 3 DROP; Start 09/09/16 at 09:00 Lactobacillus Acidophilus/ Rhamnosus (Culturelle) 1 cap BID PO Last administered on 09/11/16 09:46; Admin Dose 1 CAP; Start 09/09/16 at 09:00 Eye Lubricant (Artificial Tears Oph) 2 drop QID BOTH EYES Last administered on 09/11/16 09:46; Admin Dose 2 DROP; Start 09/09/16 at 02:30 Vancomycin HCl (Vancomycin/ Hypromellose Oph) 1 drop QID LEFT EYE ; Start at 13:00; Status Future Hold Pantoprazole (Protonix Tab) 40 mg DAILY@06 PO Last administered on 09/11/16 05 :45; Admin Dose 40 MG; Start 09/11/16 at 06:00 LUX LUONG NP Sep 11, 2016 13:33
== END 2016-09-11 13:40 | disposition home or self-care (01) | DRG 603 ==
LOC: E/R 19:17 → PP2 21:18 → MS2 09-09 01:18
PROVIDERS: ADMIT Family Medicine; ATTEND Family Medicine
DX: L03.213 Periorbital cellulitis (principal); B95.62 Methicillin resistant Staphylococcus aureus infection as the cause of diseases classified elsewhere; F31.9 Bipolar disorder, unspecified; G44.209 Tension-type headache, unspecified, not intractable; H66.92 Otitis media, unspecified, left ear; H61.20 Impacted cerumen, unspecified ear
CPT/HCPCS: 36415; 70480; 80053; 83735; 85025; 87040; 87081; 96365; 96366; 96375; C9113; J2060; J2405; J2930; J3370; J7030; J7050; J7512